=== PATIENT | female | born 1930 | race Caucasian/White ===

== ENCOUNTER → 2018-05-17 | Outpatient (CLI) | payer MEDICARE ==
[~2018-05-17] MED LIST: CALCIUM + VITA1 EACH; COSAMIN ASU CA1 EACH PO; ECOTRIN81 MG; FISH OIL500 MG; FUROSEMIDE40 MG PO; KLOR-CON 1010 MEQ PO; LUTEIN20 MG; NEXIUM20 MG PO; NORCO 10-325 T1 EACH; OSTEO BI-FLEX1 EACH; PRESERVISION T1 EACH; SIMVASTATIN10 MG; VITAMIN D-32000 UNIT
--- NOTE | 2018-05-17 13:28 | Diagnostic Imaging Report ---
Radiographs of the ribs - 4 views HISTORY: Left rib pain. COMPARISON: None available. FINDINGS: Bones: No acute displaced fracture. Osseous alignment is within normal limits. Joints: Scattered degenerative change. No osseous erosion. No rib abnormality is seen. Soft tissues: Chronic appearing changes in the lungs. IMPRESSION: Scattered degenerative change. No osseous erosion. No rib abnormality is seen. Signed by: Dr. Jonny Sheets M.D. on 05/17/2018 1:24 PM
== END ==
LOC: RAD 12:30
PROVIDERS: ATTEND Internal Medicine
DX: R07.81 Pleurodynia (principal); Z91.81 History of falling
CPT/HCPCS: 71101

== ENCOUNTER 2019-01-22 09:34 | Emergency (ER) | payer MEDICARE ==
[~2019-01-22] VITALS: Ht 154.9 cm; Wt 63.0 kg
--- OUTSIDE RECORDS SUMMARY | 2019-01-22 09:38 | XMS REPORT | Clinical Summary ---
Author Author [facility] Organization [facility] Address Unknown Phone Unavailable Care Team Providers Care Ichthyology Teacher Name Role Phone Aldo Gamboa MD PCP Allergies No Known Allergies Medications End Date Status Medication Sig Dispensed Refills Start Date Active OMEGA-3 FATTY ACIDS/FISH Take 1,200 mg 0 OIL (OMEGA 3 FISH OIL by mouth ORAL) daily. Active CRANBERRY FRUIT EXTRACT Take 2 0 (CRANBERRY ORAL) tablets by mouth 2 (two) times a day. Active cholecalciferol, vitamin Take 1 tablet 0 D3, (VITAMIN D3) 5,000 by mouth unit tablet daily. Active thiamine 100 MG tablet Take 100 mg 0 by mouth daily. Active folic Take 1 tablet 0 acid/multivit-min/lutein by mouth (CENTRUM SILVER ORAL) daily. Active rOPINIRole (REQUIP) 0.5 Take 0.5 mg 0 MG tablet by mouth nightly. Active vit A/vit C/vit Take 1 0 E/zinc/copper (ICAPS capsule by AREDS ORAL) mouth 2 (two) times a day. 07/05/2019 Active carbidopa-levodopa Take 1 tablet 90 tablet 3 (SINEMET CR) 50-200 mg by mouth 9 per CR tablet nightly. 07/05/2019 Active carbidopa-levodopa Take 2.5 675 tablet 3 (SINEMET) 25-100 mg per tablets by 9 tablet mouth 3 (three) times a day. AM, NOON, PM Active gabapentin (NEURONTIN) Take 1 0 100 mg capsule capsule by mouth in the morning and 4 capsules by mouth at bedtime 02/01/2019 Active amIODarone (PACERONE) 200 Take 1 tablet 60 tablet 0 01/02/201 MG tablet (200 mg 9 total) by mouth every 12 (twelve) hours for 30 days. 02/01/2019 Active apixaban (ELIQUIS) 2.5 mg Take 1 tablet 60 tablet 0 tablet (2.5 mg 9 total) by mouth 2 (two) times a day for 30 days. 02/01/2019 Active budesonide (PULMICORT) Take 2 mL 120 mL 0 0.5 mg/2 mL nebulizer (0.5 mg 9 solution total) by nebulization 2 (two) times a day for 30 days. 02/02/2019 Active metoprolol tartrate Take 0.5 15 tablet 0 (LOPRESSOR) 25 mg tablet tablets (12.5 9 mg total) by mouth daily for 30 days. Active acetaminophen/diphenhydra Take 1 tablet 0 mine (TYLENOL PM EXTRA by mouth STRENGTH ORAL) nightly. 01/10/2019 Discontinued (Therapy completed) aspirin (ECOTRIN) 81 MG Take 81 mg by 0 enteric coated tablet mouth daily. 03/27/2018 Discontinued (Med List Cleanup) carbidopa-levodopa Take 1 tablet 30 tablet 11 (SINEMET CR) 50-200 mg by mouth 7 per CR tablet nightly. 03/27/2018 Discontinued (Med List Cleanup) carbidopa-levodopa TAKE TWO (2) 225 tablet 11 (SINEMET) 25-100 mg per & 1/2 TABLETS 8 tablet BY MOUTH THREE TIMES A DAY. 03/27/2018 Discontinued (Med List Cleanup) vitamin A-vit C-vit Take 1 tablet 0 E-zinc-Cu tablet by mouth 2 (two) times a day. 03/27/2018 Discontinued (Med List Cleanup) diphenhydramine-acetamino Take 1 tablet 0 phen 12.5-500 mg tablet by mouth as needed (for mild pain). 03/27/2018 Discontinued (Med List Cleanup) DULoxetine (CYMBALTA) 30 Take 1 30 capsule 11 MG capsule capsule (30 8 mg total) by mouth nightly. 03/27/2018 Discontinued (Med List Cleanup) gabapentin (NEURONTIN) Take 5 150 capsule 6 100 mg capsule capsules (500 8 mg total) by mouth daily. 07/05/2018 Discontinued (Reorder) carbidopa-levodopa Take 1 tablet 0 (SINEMET CR) 50-200 mg by mouth per CR tablet nightly. 07/05/2018 Discontinued (Reorder) carbidopa-levodopa Take 2.5 0 (SINEMET) 25-100 mg per tablets by tablet mouth 3 (three) times a day. AM, NOON, PM 07/18/2018 Discontinued (Stop Taking at Discharge) diphenhydramine-acetamino Take 1 tablet 0 phen 12.5-500 mg tablet by mouth nightly as needed. 07/05/2018 Discontinued (Reorder) gabapentin (NEURONTIN) Take 100 mg 0 100 mg capsule by mouth every morning. 07/16/2018 Discontinued gabapentin (NEURONTIN) Take 400 mg 0 100 mg capsule by mouth daily with dinner. 11/19/2018 Discontinued (Patient Reported) potassium chloride Take 20 mEq 0 (K-DUR) 20 MEQ CR tablet by mouth every morning. 11/19/2018 Discontinued (Patient Reported) furosemide (LASIX) 20 mg Take 20 mg by 0 tablet mouth daily. 04/27/2018 acetaminophen (TYLENOL) Take 2 0 325 MG tablet tablets (650 8 mg total) by mouth every 6 (six) hours as needed for mild pain, moderate pain or headaches for up to 30 days. 04/07/2018 acetaminophen-codeine Take 1 tablet 10 tablet 0 (TYLENOL WITH CODEINE #3) by mouth 8 300-30 mg per tablet every 6 (six) hours as needed for moderate pain for up to 10 days. 11/19/2018 Discontinued (Error) gabapentin (NEURONTIN) 1 pill in AM 450 capsule 3 100 mg capsule and 4 pills 9 HS 07/25/2018 levoFLOXacin (LEVAQUIN) Take 1 tablet 7 tablet 0 500 MG tablet (500 mg 9 total) by mouth daily for 7 days. 12/19/2018 albuterol (ACCUNEB) 0.63 Take 3 mL 75 mL 12 mg/3 mL nebulizer (0.63 mg 9 solution total) by nebulization every 6 (six) hours as needed for shortness of breath for up to 30 days. Active Problems Problem Noted Date Respiratory distress 12/27/2018 Atrial fibrillation with RVR 12/27/2018 Chronic diastolic congestive heart failure 12/27/2018 Urinary tract infection without hematuria 12/24/2018 Shortness of breath 11/19/2018 Chest pain at rest 11/18/2018 Acute cystitis without hematuria 07/16/2018 T12 burst fracture 03/27/2018 General weakness 10/19/2017 Altered mental status 08/14/2017 Parkinsonism 10/26/2016 NPH (normal pressure hydrocephalus) 10/26/2016 Weakness 06/09/2016 Macular degeneration syndrome 02/13/2016 Humerus fracture 02/13/2016 Subarachnoid hemorrhage 02/12/2016 OA (osteoarthritis) Mesenteric lymphadenopathy Overview: no accessible by IR directed biopsy Kidney calculus Overview: history of Cardiac disease Chronic a-fib Chronic renal impairment Hyperlipidemia Encounters Care Team Description Date Type Specialty Vesna Vences MD Parkinson's disease (HCC) (Primary Dx); Vitamin B deficiency; Dementia without behavioral disturbance, unspecified dementia type; Sensory polyneuropathy; Abnormal gait 01/10/2019 Office Visit Neurology Bob Bernardo DO Joglekar, Swati, MD Patel, Amitkumar Natvarlal, MD Arif, Sahar, MD Urinary tract infection without hematuria, site unspecified (Primary Dx); Weakness; Chronic a-fib (HCC); Chronic diastolic congestive heart failure (HCC) 12/24/2018 [facility] General Internal Medicine - Encounter 01/02/2019 12/24/2018 Travel Hilary Grande MD Ogbonna, Martina C., MD Chest pain at rest (Primary Dx); Parkinsonism, unspecified Parkinsonism type (HCC); Chronic lung disease; Shortness of breath 11/18/2018 Emergency General Internal Medicine - 11/19/2018 Vesna Vences MD Aphasia; Parkinson's disease (HCC); Dementia without behavioral disturbance, unspecified dementia type 10/23/2018 Hospital Radiology Encounter Vesna Vences MD 10/08/2018 Telephone Neurology Vesna Vences MD Aphasia (Primary Dx); Parkinson's disease (HCC); Primary freezing of gait; Vitamin B deficiency; Dementia without behavioral disturbance, unspecified dementia type; Sensory polyneuropathy; Abnormal gait; Pain in both lower legs; Dementia associated with other underlying disease without behavioral disturbance 10/04/2018 Office Visit Neurology Mike Lu MD Cherian, Cecil, MD Joglekar, Swati, MD McCartan, James Arthur, DO Weakness (Primary Dx) 07/14/2018 Hospital General Internal Medicine - Encounter 07/18/2018 Vesna Vences MD Parkinson's disease (HCC) (Primary Dx); Primary freezing of gait; Sensory polyneuropathy; Vitamin B deficiency; Abnormal gait; Mild cognitive impairment 07/05/2018 Office Visit Neurology Mariano Henry MD Closed compression fracture of thoracic vertebra with routine healing, subsequent encounter (Primary Dx) 06/18/2018 Office Visit Neurosurgery Mariano Henry MD Stress fracture of thoracic vertebra with routine healing 06/18/2018 Hospital Radiology Encounter Vesna Vences MD 06/13/2018 Refill Neurology Vesna Vences MD 05/23/2018 Refill Neurology Vesna Vences MD 05/08/2018 Refill Neurology Mariano Henry MD Closed compression fracture of thoracic vertebra with routine healing, subsequent encounter (Primary Dx) 04/16/2018 Office Visit Neurosurgery Mariano Henry MD Stress fracture of thoracic vertebra with routine healing, subsequent encounter 04/16/2018 Hospital Radiology Encounter Lisa Hills RN Stress fracture of thoracic vertebra with routine healing (Primary Dx) 04/16/2018 Transcribe Neurosurgery Orders Mariano Henry MD Stress fracture of thoracic vertebra with routine healing, subsequent encounter (Primary Dx) 03/29/2018 Transcribe Neurosurgery Orders Dav Cohen MD Gadiraju, Sahitya, T12 burst fracture (HCC) (Primary Dx) 03/27/2018 Emergency General Internal Medicine - 03/28/2018 Vesna Vences MD Parkinson's disease (HCC) (Primary Dx); Primary freezing of gait; Sensory polyneuropathy; Vitamin B deficiency; Abnormal gait; Pain in both lower legs 03/07/2018 Office Visit Neurology after 01/21/2018 Family History Medical History Relation Name Comments Colon cancer Daughter Thyroid cancer Daughter No Known Problems Mother Relation Name Status Comments Daughter Mother Social History Date Tobacco Use Types Packs/Day Years Used Never Smoker Smokeless Tobacco: Never Used Drinks/Week oz/Week Comments Alcohol Use No Sex Assigned at Date Recorded Not on file Industry Job Start Date Occupation Not on file Not on file Not on file Travel End Travel History Travel Start No recent travel history available. Last Filed Vital Signs Reading Time Taken Comments Vital Sign 127/58 01/10/2019 2:05 PM CDT Blood Pressure 62 01/10/2019 2:05 PM CDT Pulse 36.1 C (96.9 F) 01/02/2019 7:24 AM CDT Temperature 13 01/02/2019 3:54 PM CDT Respiratory Rate 97% 01/02/2019 3:51 PM CDT Oxygen Saturation - - Inhaled Oxygen Concentration 51.7 kg (114 lb) 01/10/2019 2:05 PM CDT Weight 154.9 cm (5' 1") 12/24/2018 1:06 AM CDT Height 21.54 12/24/2018 1:06 AM CDT Body Mass Index Plan of Treatment Care Team Description Date Type Specialty Vesna Vences MD [address] [facility] [address] [place], [place] [id number] 04/18/2019 Office Visit Neurology Health Maintenance Due Date Last Done Comments SHINGLES VACCINES (#1) 1982 65+ PNEUMOCOCCAL VACCINE 1997 (1 of 2 - PCV13) INFLUENZA VACCINE 11/29/2018 Procedures Comments Procedure Name Priority Date/Time Associated Diagnosis POC GLUCOSE Routine 01/02/2019 1:14 PM CDT POC GLUCOSE Routine 01/02/2019 8:23 AM CDT POC GLUCOSE Routine 01/01/2019 9:35 PM CDT POC GLUCOSE Routine 01/01/2019 6:05 PM CDT POC GLUCOSE Routine 01/01/2019 12:28 PM CDT POC GLUCOSE Routine 01/01/2019 7:53 AM CDT ECHOCARDIOGRAM 2D STAT 01/01/2019 COMPLETE W MMODE SPECTRAL 5:17 AM CDT COLOR DOPPLER (92481) POC GLUCOSE Routine 12/31/2018 9:13 PM CDT POC GLUCOSE Routine 12/31/2018 5:53 PM CDT POC GLUCOSE Routine 12/31/2018 11:54 AM CDT POC GLUCOSE Routine 12/31/2018 8:16 AM CDT MANUAL DIFFERENTIAL Routine 12/31/2018 5:45 AM CDT B NATRIURETIC PEPTIDE Routine 12/31/2018 5:45 AM CDT CBC WITH PLATELET AND Routine 12/31/2018 DIFFERENTIAL 5:45 AM CDT ESTIMATED GFR Routine 12/31/2018 4:00 AM CDT PHOSPHORUS LEVEL Routine 12/31/2018 4:00 AM CDT MAGNESIUM LEVEL Routine 12/31/2018 4:00 AM CDT BASIC METABOLIC PANEL Routine 12/31/2018 4:00 AM CDT POC GLUCOSE Routine 12/30/2018 8:[address] HEAD WO CONTRAST STAT 12/30/2018 4:31 PM CDT POC GLUCOSE Routine 12/30/2018 3:58 PM CDT IONIZED CALCIUM Timed 12/30/2018 1:00 PM CDT POTASSIUM LEVEL Timed 12/30/2018 1:00 PM CDT POC GLUCOSE Routine 12/30/2018 11:22 AM CDT POC GLUCOSE Routine 12/30/2018 7:14 AM CDT XR CHEST 1 VW PORTABLE Routine 12/30/2018 6:47 AM CDT MANUAL DIFFERENTIAL Routine 12/30/2018 3:05 AM CDT IONIZED CALCIUM Routine 12/30/2018 3:05 AM CDT ESTIMATED GFR Routine 12/30/2018 3:05 AM CDT PHOSPHORUS LEVEL Routine 12/30/2018 3:05 AM CDT MAGNESIUM LEVEL Routine 12/30/2018 3:05 AM CDT CBC WITH PLATELET AND Routine 12/30/2018 DIFFERENTIAL 3:05 AM CDT BASIC METABOLIC PANEL Routine 12/30/2018 3:05 AM CDT POC GLUCOSE Routine 12/30/2018 12:50 AM CDT POC GLUCOSE Routine 12/29/2018 8:31 PM CDT ESTIMATED GFR Routine 12/29/2018 7:48 PM CDT BASIC METABOLIC PANEL Routine 12/29/2018 7:48 PM CDT POC GLUCOSE Routine 12/29/2018 4:53 PM CDT PARTIAL THROMBOPLASTIN Routine 12/29/2018 TIME (PTT) 1:40 PM CDT POC GLUCOSE Routine 12/29/2018 11:10 AM CDT POC GLUCOSE Routine 12/29/2018 7:34 AM CDT MANUAL DIFFERENTIAL Routine 12/29/2018 4:53 AM CDT ESTIMATED GFR Routine 12/29/2018 4:53 AM CDT PARTIAL THROMBOPLASTIN Routine 12/29/2018 TIME (PTT) 4:53 AM CDT PHOSPHORUS LEVEL Routine 12/29/2018 4:53 AM CDT MAGNESIUM LEVEL Routine 12/29/2018 4:53 AM CDT CBC WITH PLATELET AND Routine 12/29/2018 DIFFERENTIAL 4:53 AM CDT BASIC METABOLIC PANEL Routine 12/29/2018 4:53 AM CDT POC GLUCOSE Routine 12/29/2018 4:31 AM CDT POC GLUCOSE Routine 12/29/2018 12:53 AM CDT ANTI XA, UNFRACTIONATED STAT 12/28/2018 10:18 PM CDT PARTIAL THROMBOPLASTIN STAT 12/28/2018 TIME (PTT) 10:18 PM CDT POC GLUCOSE Routine 12/28/2018 9:12 PM CDT XR CHEST 1 VW PORTABLE STAT 12/28/2018 7:36 PM CDT ECG 12-LEAD STAT 12/28/2018 6:55 PM CDT TROPONIN Routine 12/28/2018 6:42 PM CDT POC GLUCOSE Routine 12/28/2018 4:38 PM CDT ESTIMATED GFR Routine 12/28/2018 1:20 PM CDT BETA HYDROXYBUTYRATE Routine 12/28/2018 1:20 PM CDT BASIC METABOLIC PANEL Routine 12/28/2018 1:20 PM CDT LACTIC ACID LEVEL Routine 12/28/2018 1:20 PM CDT POTASSIUM LEVEL Routine 12/28/2018 1:20 PM CDT POC GLUCOSE Routine 12/28/2018 10:46 AM CDT POC GLUCOSE Routine 12/28/2018 8:17 AM CDT POC GLUCOSE Routine 12/28/2018 5:07 AM CDT ESTIMATED GFR Routine 12/28/2018 2:50 AM CDT B NATRIURETIC PEPTIDE Routine 12/28/2018 2:50 AM CDT VENOUS BLOOD GAS Routine 12/28/2018 2:50 AM CDT PHOSPHORUS LEVEL Routine 12/28/2018 2:50 AM CDT MAGNESIUM LEVEL Routine 12/28/2018 2:50 AM CDT BASIC METABOLIC PANEL Routine 12/28/2018 2:50 AM CDT HC COMPLETE BLD COUNT Routine 12/28/2018 W/AUTO DIFF 2:50 AM CDT VITAMIN B12 LEVEL Routine 12/28/2018 2:50 AM CDT TOTAL IRON BINDING Routine 12/28/2018 CAPACITY 2:50 AM CDT FOLATE RBC (GROUP TEST) Routine 12/28/2018 2:50 AM CDT FOLATE LEVEL Routine 12/28/2018 2:50 AM CDT POC GLUCOSE Routine 12/28/2018 12:44 AM CDT POC GLUCOSE Routine 12/27/2018 8:42 PM CDT POC GLUCOSE Routine 12/27/2018 6:[address] MAXILLOFACIAL W Routine 12/27/2018 CONTRAST 5:[address] SOFT TISSUE NECK W Routine 12/27/2018 CONTRAST 5:55 PM CDT POC GLUCOSE Routine 12/27/2018 4:19 PM CDT RESPIRATORY PATHOGEN Routine 12/27/2018 PANEL 12:31 PM CDT POC GLUCOSE Routine 12/27/2018 12:27 PM CDT ECG 12-LEAD STAT 12/27/2018 10:07 AM CDT VENOUS BLOOD GAS Routine 12/27/2018 10:00 AM CDT ESTIMATED GFR Routine 12/27/2018 9:40 AM CDT LACTIC ACID LEVEL Routine 12/27/2018 9:40 AM CDT B NATRIURETIC PEPTIDE Routine 12/27/2018 9:40 AM CDT TROPONIN STAT 12/27/2018 9:40 AM CDT COMPREHENSIVE METABOLIC Routine 12/27/2018 PANEL 9:40 AM CDT PHOSPHORUS LEVEL Routine 12/27/2018 9:40 AM CDT MAGNESIUM LEVEL Routine 12/27/2018 9:40 AM CDT PROTHROMBIN TIME WITH INR Routine 12/27/2018 9:40 AM CDT HC COMPLETE BLD COUNT Routine 12/27/2018 W/AUTO DIFF 9:40 AM CDT POC GLUCOSE Routine 12/27/2018 9:07 AM CDT GRAM STAIN STAT 12/27/2018 9:02 AM CDT URINE CULTURE STAT 12/27/2018 9:02 AM CDT BLOOD CULTURE, AEROBIC & Routine 12/27/2018 ANAEROBIC 7:45 AM CDT BLOOD CULTURE, AEROBIC & Routine 12/27/2018 ANAEROBIC 7:45 AM CDT URINALYSIS SCREEN AND STAT 12/27/2018 MICROSCOPY, WITH REFLEX 7:35 AM CDT TO CULTURE XR CHEST 1 VW PORTABLE STAT 12/27/2018 7:02 AM CDT POC GLUCOSE Routine 12/27/2018 6:52 AM CDT LACTIC ACID LEVEL, SEPSIS Timed 12/27/2018 - NOW AND REPEAT 2X EVERY 6:30 AM CDT 3 HOURS THYROID STIMULATING Routine 12/27/2018 HORMONE 6:30 AM CDT HEPATIC FUNCTION PANEL Routine 12/27/2018 6:30 AM CDT PHOSPHORUS LEVEL Routine 12/27/2018 6:30 AM CDT MAGNESIUM LEVEL Routine 12/27/2018 6:30 AM CDT ARTERIAL BLOOD GAS STAT 12/27/2018 6:14 AM CDT ECG 12-LEAD STAT 12/27/2018 6:13 AM CDT B NATRIURETIC PEPTIDE Routine 12/27/2018 4:00 AM CDT THYROID STIMULATING Routine 12/27/2018 HORMONE 3:40 AM CDT HEPATIC FUNCTION PANEL Routine 12/27/2018 3:40 AM CDT PHOSPHORUS LEVEL Routine 12/27/2018 3:40 AM CDT MAGNESIUM LEVEL Routine 12/27/2018 3:40 AM CDT ESTIMATED GFR Routine 12/27/2018 3:40 AM CDT BASIC METABOLIC PANEL Routine 12/27/2018 3:40 AM CDT HC COMPLETE BLD COUNT Routine 12/27/2018 W/AUTO DIFF 3:40 AM CDT ECG 12-LEAD STAT 12/26/2018 9:54 AM CDT XR CHEST 1 VW PORTABLE STAT 12/26/2018 4:19 AM CDT PHOSPHORUS LEVEL Routine 12/26/2018 3:57 AM CDT TROPONIN Routine 12/26/2018 3:57 AM CDT ESTIMATED GFR Routine 12/26/2018 3:57 AM CDT MAGNESIUM LEVEL Routine 12/26/2018 3:57 AM CDT BASIC METABOLIC PANEL Routine 12/26/2018 3:57 AM CDT HC COMPLETE BLD COUNT Routine 12/26/2018 W/AUTO DIFF 3:30 AM CDT ESTIMATED GFR Routine 12/25/2018 4:51 AM CDT TROPONIN Routine 12/25/2018 4:51 AM CDT MAGNESIUM LEVEL Routine 12/25/2018 4:51 AM CDT COMPREHENSIVE METABOLIC Routine 12/25/2018 PANEL 4:51 AM CDT CBC WITH PLATELET AND Routine 12/25/2018 DIFFERENTIAL 4:51 AM CDT ECHOCARDIOGRAM 2D Routine 12/24/2018 COMPLETE W MMODE SPECTRAL 11:25 AM CDT COLOR DOPPLER (72456) TROPONIN Timed 12/24/2018 9:00 AM CDT POTASSIUM LEVEL STAT 12/24/2018 6:00 AM CDT TROPONIN Timed 12/24/2018 3:02 AM CDT GRAM STAIN STAT 12/24/2018 2:44 AM CDT URINE CULTURE STAT 12/24/2018 2:44 AM CDT URINALYSIS SCREEN AND STAT 12/24/2018 MICROSCOPY, WITH REFLEX 2:32 AM CDT TO CULTURE VENOUS BLOOD GAS STAT 12/24/2018 1:38 AM CDT AST (SGOT) STAT 12/24/2018 1:32 AM CDT POTASSIUM LEVEL STAT 12/24/2018 1:32 AM CDT ECG ED PRELIMINARY Routine 12/24/2018 INTERPRETATION 12:56 AM CDT XR CHEST 1 VW PORTABLE STAT 12/24/2018 12:51 AM CDT ESTIMATED GFR STAT 12/24/2018 12:30 AM CDT B NATRIURETIC PEPTIDE STAT 12/24/2018 12:30 AM CDT TROPONIN Routine 12/24/2018 12:30 AM CDT LACTIC ACID LEVEL STAT 12/24/2018 12:30 AM CDT COMPREHENSIVE METABOLIC STAT 12/24/2018 PANEL 12:30 AM CDT HC COMPLETE BLD COUNT STAT 12/24/2018 W/AUTO DIFF 12:30 AM CDT BLOOD CULTURE, AEROBIC & Routine 12/24/2018 ANAEROBIC 12:30 AM CDT ECG 12-LEAD STAT 12/24/2018 12:24 AM CDT BLOOD CULTURE, AEROBIC & Routine 12/24/2018 ANAEROBIC 12:15 AM CDT XR FOREARM 2 VW RIGHT Routine 11/19/2018 6:02 PM CDT ECG 12-LEAD STAT 11/19/2018 9:31 AM CDT TROPONIN STAT 11/19/2018 3:00 AM CDT LACTIC ACID LEVEL STAT 11/19/2018 3:00 AM CDT ESTIMATED GFR STAT 11/19/2018 3:00 AM CDT HC COMPLETE BLD COUNT STAT 11/19/2018 W/AUTO DIFF 3:00 AM CDT COMPREHENSIVE METABOLIC STAT 11/19/2018 PANEL 3:00 AM CDT MAGNESIUM LEVEL STAT 11/19/2018 3:00 AM CDT PHOSPHORUS LEVEL STAT 11/19/2018 3:00 AM CDT B NATRIURETIC PEPTIDE STAT 11/19/2018 3:00 AM CDT RESPIRATORY PATHOGEN Routine 11/19/2018 PANEL 3:00 AM CDT ESTIMATED GFR STAT 11/18/2018 8:04 PM CDT B NATRIURETIC PEPTIDE STAT 11/18/2018 8:04 PM CDT TROPONIN STAT 11/18/2018 8:04 PM CDT CREATINE KINASE, TOTAL STAT 11/18/2018 (CPK) 8:04 PM CDT COMPREHENSIVE METABOLIC STAT 11/18/2018 PANEL 8:04 PM CDT PARTIAL THROMBOPLASTIN STAT 11/18/2018 TIME (PTT) 8:04 PM CDT PROTHROMBIN TIME WITH INR STAT 11/18/2018 8:04 PM CDT HC COMPLETE BLD COUNT STAT 11/18/2018 W/AUTO DIFF 8:04 PM CDT XR CHEST 1 VW PORTABLE STAT 11/18/2018 7:58 PM CDT MRI BRAIN WO CONTRAST Routine 10/23/2018 Aphasia 1:15 PM CDT Parkinson's disease (HCC) Dementia without behavioral disturbance, unspecified dementia type ESTIMATED GFR Routine 07/17/2018 4:00 AM CDT HC COMPLETE BLD COUNT Routine 07/17/2018 W/AUTO DIFF 4:00 AM CDT BASIC METABOLIC PANEL Routine 07/17/2018 4:00 AM CDT HC COMPLETE BLD COUNT Routine 07/16/2018 W/AUTO DIFF 4:45 AM CDT ESTIMATED GFR Routine 07/16/2018 4:00 AM CDT PHOSPHORUS LEVEL Routine 07/16/2018 4:00 AM CDT MAGNESIUM LEVEL Routine 07/16/2018 4:00 AM CDT BASIC METABOLIC PANEL Routine 07/16/2018 4:[address] HEAD WO CONTRAST STAT 07/15/2018 12:18 AM CDT GRAM STAIN STAT 07/14/2018 10:04 PM CDT URINE CULTURE STAT 07/14/2018 10:04 PM CDT URINALYSIS SCREEN AND STAT 07/14/2018 MICROSCOPY, WITH REFLEX 8:19 PM CDT TO CULTURE BLOOD CULTURE, AEROBIC & Routine 07/14/2018 ANAEROBIC 8:11 PM CDT ESTIMATED GFR STAT 07/14/2018 8:08 PM CDT TROPONIN STAT 07/14/2018 8:08 PM CDT COMPREHENSIVE METABOLIC STAT 07/14/2018 PANEL 8:08 PM CDT HC COMPLETE BLD COUNT STAT 07/14/2018 W/AUTO DIFF 8:08 PM CDT BLOOD CULTURE, AEROBIC & Routine 07/14/2018 ANAEROBIC 8:08 PM CDT ECG 12-LEAD Routine 07/14/2018 5:15 PM CDT XR THORACIC SPINE 3 VW Routine 06/18/2018 Stress fracture of 12:14 PM INSPECTOR FINISHING thoracic vertebra with routine healing XR THORACIC SPINE 3 VW Routine 04/16/2018 Stress fracture of 12:45 PM INSPECTOR FINISHING thoracic vertebra with routine healing, subsequent encounter MRI LUMBAR SPINE WO STAT 03/27/2018 CONTRAST 10:18 AM INSPECTOR FINISHING ESTIMATED GFR STAT 03/27/2018 9:25 AM INSPECTOR FINISHING COMPREHENSIVE METABOLIC STAT 03/27/2018 PANEL 9:25 AM INSPECTOR FINISHING HC COMPLETE BLD COUNT STAT 03/27/2018 W/AUTO DIFF 9:[address] PELVIS WO CONTRAST STAT 03/27/2018 2:[address] LUMBAR SPINE WO STAT 03/27/2018 CONTRAST 2:58 AM INSPECTOR FINISHING after 01/21/2018 Results * POC glucose (01/02/2019 1:14 PM CDT) Only the most recent of 33 results within the time period is included. POC glucose 134 (H) 65 - 99 mg/dL [place] Comment: [facility] Notified RN HOSPITAL Meter ID: [id number] Client Director: Fransisco Galeas Specimen Performing Organization Address City/State/Zipcode Phone Number [facility] DEPARTMENT OF [address] [phone] PATHOLOGY AND GENOMIC MEDICINE [place] [facility] [address] [place] [address] * Echocardiogram complete w contrast and 3D if needed (01/01/2019 5:17 AM CDT) Specimen Narrative Performed At [facility] Echocardiography Report [id number] [facility], [facility] 9, [address]Name:BRIDGET ISAAC.ID:[id number] .Date: 12/27/2018 Refer.MD:CRISTIANE CARROLL MD Exam Time: 9:45:00 AMStudy Type:Routine Echo Height:61.02in Weight:113.74lb BSA: 1.49 m2 DOBAge:1930,88Y Sex: FEMALEBP:121/56 HR:80 bpmSonogrphr: GALEN Reilly Pat. Stat.:Inpatient Room:[facility] [place] Study Status:Final Echo Event ID:[id number] Order ID:[id number] Reason for Study:Atrial fibrillation History / Clinical:Atrial Fibrillation, Hyperlipidemia Procedures:Portable, Stat, 2D Echo Limited Race:C SUMMARY: LV EF is mild to moderately depressed. RV systolic function is mildly depressed. FINDINGS: LV: LV size is mildly enlarged. There is severe eccentric LV hypertrophy.LV EF is mild to moderately depressed. Overall wallmotion is mildly hypokinetic. Estimated EF is 40-44%. RV: RV size is normal. RV systolic function is mildly depressed. LA: LA size is normal. RA: RA size is normal. AO: Aortic root diameter is normal. BANDAR: No pericardial effusion. AV: No structural AV abnormalities noted. MV: No structural MV abnormalities noted. PV: No structural PV abnormalities noted. TV: No structural TV abnormalities noted. MEASUREMENTS: 2D Parasternal [place] LVOT 1.8 cmLA Ds4.4 cm LVIDd5 cmIndex3.3 cm/m Ao Rtd 3.1 cm Index2.1 cm/m LVIDs3.8 cmLV Osma228.3 g(87-129) LV%fs 23.4 % LVM Cfwuq426.5 g/m2 IVSd 1.3 cmRWT0.4 LVPWd1 cm LA Sng Plane LA Area 17.6 cm2(8.8-23.4) LA Vol46.4 ml Index31.1 ml/m LA LngAx 5.5 cm RA Sng Plane RA Area 18.7 cm2(8.3-19.5) RA Vol48.6 ml Index32.6 ml/m RA LngAx 6 cm Signed 12/27/2018 12:11 PM Krystina Ellis M.D. Procedure Note Interface, Radiology Results In - 12/27/2018 12:11 PM CDT Echocardiography Report [id number] [place] [address] Pat.Name: BRIDGET ISAAC Pat.ID: [id number] .Date: 12/27/2018 Refer.MD: CRISTIANE CARROLL MD Exam Time: 9:45:00 AM Study Type:Routine Echo Height: 61.02in Weight: 113.74lb BSA: 1.49 m2 Age: 6 1930,88Y Sex: FEMALE BP: 121/56 HR: 80 bpm Sonogrphr: GALEN Reilly Pat. Stat.:Inpatient Room: [facility] [place] Study Status:Final Echo Event ID:[id number] Order ID: [id number] Reason for Study:Atrial fibrillation History / Clinical:Atrial Fibrillation, Hyperlipidemia Procedures:Portable, Stat, 2D Echo Limited Race: C SUMMARY: LV EF is mild to moderately depressed. RV systolic function is mildly depressed. FINDINGS: LV: LV size is mildly enlarged. There is severe eccentric LV hypertrophy. LV EF is mild to moderately depressed. Overall wall motion is mildly hypokinetic. Estimated EF is 40-44%. RV: RV size is normal. RV systolic function is mildly depressed. LA: LA size is normal. RA: RA size is normal. AO: Aortic root diameter is normal. BADNAR: No pericardial effusion. AV: No structural AV abnormalities noted. MV: No structural MV abnormalities noted. PV: No structural PV abnormalities noted. TV: No structural TV abnormalities noted. MEASUREMENTS: 2D Parasternal [place] LVOT 1.8 cm LA Ds 4.4 cm LVIDd 5 cm Index 3.3 cm/m Ao Rtd 3.1 cm Index 2.1 cm/m LVIDs 3.8 cm LV Mass 224.3 g (87-129) LV%fs 23.4 % LVM Index 150.5 g/m2 IVSd 1.3 cm RWT 0.4 LVPWd 1 cm LA Sng Plane LA Area 17.6 cm2 (8.8-23.4) LA Vol 46.4 ml Index 31.1 ml/m LA LngAx 5.5 cm RA Sng Plane RA Area 18.7 cm2 (8.3-19.5) RA Vol 48.6 ml Index 32.6 ml/m RA LngAx 6 cm Signed 12/27/2018 12:11 PM Krystina Ellis M.D. Performing Organization Address City/State/Zipcode Phone Number [facility] [address] [place] [address] * Manual differential (12/31/2018 5:45 AM CDT) Only the most recent of 3 results within the time period is included. Manual PERFORMED [place] differential [facility] Neutrophils 81.0 (H) 39.0 - 69.0 % [facility] Lymphocytes 10.0 (L) 25.0 - 45.0 % [facility] Monocytes 7.0 0.0 - 10.0 % [facility] Eosinophils 2.0 0.0 - 5.0 % [facility] Basophils 0.0 0.0 - 1.0 % [facility] Metamyelocytes 0 % [facility] Promyelocytes 0 % [facility] Platelet slide Jax adequate [place] review [facility] Enlarged Moderate (A) [facility] Specimen Performing Organization Address [facility] Phone Number [facility] DEPARTMENT OF [address] [place] [address] PATHOLOGY AND GENOMIC MEDICINE [address] * CBC with platelet and differential (12/31/2018 5:45 AM CDT) Only the most recent of 15 results within the time period is included. WBC 7.39 4.50 - 11.00 k/uL [facility] RBC 2.95 (L) 4.20 - 5.50 m/uL [facility] HGB 8.9 (L) 12.0 - 16.0 g/dL [facility] HCT 28.8 (L) 37.0 - 47.0 % [facility] MCV 97.6 82.0 - 100.0 fL [facility] MCH 30.2 27.0 - 34.0 pg [facility] MCHC 30.9 (L) 31.0 - 37.0 g/dL [facility] RDW - SD 48.5 37.0 - 55.0 fL [facility] MPV 11.0 8.8 - 13.2 fL [facility] Platelet count 377 150 - 400 k/uL [facility] Nucleated RBC 0.00 /100 WBC [facility] Neutrophils 81.0 (H) 39.0 - 69.0 % [facility] Lymphocytes 10.0 (L) 25.0 - 45.0 % [facility] Monocytes 7.0 0.0 - 10.0 % [facility] Eosinophils 2.0 0.0 - 5.0 % [facility] Basophils 0.0 0.0 - 1.0 % [facility] Specimen Blood Performing Organization Address City/State/Zipcode Phone Number [facility] [place] [address] PATHOLOGY AND [facility] [address] * B natriuretic peptide (12/31/2018 5:45 AM CDT) Only the most recent of 7 results within the time period is included. BNP 248 (H) 0 - 100 pg/mL [facility] Specimen Blood Performing Organization Address City/[facility] Phone Number [facility] [place] [address] PATHOLOGY AND [facility] [address] * Estimated GFR (12/31/2018 4:00 AM CDT) Only the most recent of 17 results within the time period is included. Estimated GFR 48 (A) mL/min/1.73 m2 [place] Comment: [facility] rpretation G1 >=90 Normal or high G2 60-89Mildly decreased [id number] Mildly to moderately decreased [id number] Moderately to severely decreased G4 15-29Severely decreased G5 <15Kidney failure The eGFR was calculated using the Chronic Kidney Disease Epidemiology Collaboration (CKD-EPI) equation. Interpretation is based on recommendations of the National Kidney Foundation-Kidney Disease Outcomes Quality Initiative (NKF-KDOQI) published in 2014. Specimen Plasma specimen Performing Organization Address City/[facility] Phone Number [facility] [place] [address] PATHOLOGY AND [facility] [address] * Phosphorus level (12/31/2018 4:00 AM CDT) Only the most recent of 10 results within the time period is included. Phosphorus 3.8 2.4 - 4.5 mg/dL [facility] Specimen Plasma specimen Performing Organization Address City/[facility]/Zipcode Phone Number [facility] DEPARTMENT OF [address] [place] [address] PATHOLOGY AND [facility] [address] * Magnesium level (12/31/2018 4:00 AM CDT) Only the most recent of 11 results within the time period is included. Magnesium 2.4 1.6 - 2.4 mg/dL [facility] Specimen Plasma specimen Performing Organization Address City/[facility] Phone Number [facility] [place] [address] PATHOLOGY AND [facility] [address] * Basic metabolic panel (12/31/2018 4:00 AM CDT) Only the most recent of 10 results within the time period is included. Sodium 140 135 - 148 mEq/L [facility] Potassium 3.5 3.5 - 5.0 mEq/L [facility] Chloride 104 98 - 112 mEq/L [facility] CO2 25 24 - 31 mEq/L [facility] Anion gap 11@ANIO 7 - 15 mEq/L [facility] BUN 24 (H) 8 - 23 mg/dL [facility] Creatinine 1.04 (H) 0.50 - 0.90 mg/dL [facility] Glucose 86 65 - 99 mg/dL [facility] Calcium 8.2 (L) 8.8 - 10.2 mg/dL [facility] Specimen Plasma specimen Performing Organization Address [facility] Phone Number [facility] [place] [address] PATHOLOGY AND [facility] [address] * CT Head Wo Contrast (12/30/2018 4:31 PM CDT) Only the most recent of 2 results within the time period is included. Specimen Narrative Performed At EXAMINATION: CT HEAD WO CONTRAST [facility] CLINICAL HISTORY: evaluate for stroke COMPARISON:CT brain dated 07/15/2018. MRI brain dated 10/23/2018. TECHNIQUE: Noncontrast CT of the brain was performed from the skull base to the vertex. Both soft tissue and bone reconstruction algorithms are interpreted. CT imaging was performed with iterative reconstruction techniques and/or automated exposure control to reduce radiation dose. FINDINGS: No intracranial hemorrhage, extra-axial collection, or mass-effect is seen.No acute cortical infarct is identified. No hyperdense vessel is seen. Moderate chronic small vessel ischemic changes are noted in the cerebral white matter. Involutional changes of brain are again seen. No air-fluid level is seen in the visualized portions of the paranasal sinuses. There is mild partial opacification of the mastoid air cells. IMPRESSION: No acute intracranial abnormality identified. [facility]-[id number] Procedure Note Hm Interface, Radiology Results Incoming - 12/30/2018 4:37 PM CDT EXAMINATION: CT HEAD WO CONTRAST CLINICAL HISTORY: evaluate for stroke COMPARISON: CT brain dated 07/15/2018. MRI brain dated 10/23/2018. TECHNIQUE: Noncontrast CT of the brain was performed from the skull base to the vertex. Both soft tissue and bone reconstruction algorithms are interpreted. CT imaging was performed with iterative reconstruction techniques and/or automated exposure control to reduce radiation dose. FINDINGS: No intracranial hemorrhage, extra-axial collection, or mass-effect is seen. No acute cortical infarct is identified. No hyperdense vessel is seen. Moderate chronic small vessel ischemic changes are noted in the cerebral white matter. Involutional changes of brain are again seen. No air-fluid level is seen in the visualized portions of the paranasal sinuses. There is mild partial opacification of the mastoid air cells. IMPRESSION: No acute intracranial abnormality identified. [facility]-[id number] Performing Organization Address City/[facility]/[place] [address] * Potassium level (12/30/2018 1:00 PM CDT) Only the most recent of 4 results within the time period is included. Potassium 3.6 3.5 - 5.0 mEq/L [facility] Specimen Plasma specimen Performing Organization Address City/[facility]/Zipcode Phone Number [facility] DEPARTMENT OF [address] [place] [id number] PATHOLOGY AND GENOMIC MEDICINE [address] * Ionized calcium (12/30/2018 1:00 PM CDT) Only the most recent of 2 results within the time period is included. pH 7.51 [facility] Ionized calcium 1.14 1.11 - 1.32 mmol/L [facility] Specimen Plasma specimen Performing Organization Address City/[facility] Phone Number [facility] DEPARTMENT [address] [address] PATHOLOGY AND GENOMIC MEDICINE [address] * XR Chest 1 Vw Portable (12/30/2018 6:47 AM CDT) Only the most recent of 6 results within the time period is included. Specimen Narrative Performed At EXAMINATION:XR CHEST 1 VW PORTABLE [facility] CLINICAL HISTORY:pulmonary edema COMPARISON:December 28 IMPRESSION: Pulmonary vascular congestion is decreased from prior The heart remains enlarged. Small bilateral pleural effusions are present and unchanged Mild degenerative changes in the bony structures. [facility]-[id number] Procedure Note Interface, Radiology Results Incoming - 12/30/2018 7:05 AM CDT EXAMINATION: XR CHEST 1 VW PORTABLE CLINICAL HISTORY: pulmonary edema COMPARISON: December 28 IMPRESSION: Pulmonary vascular congestion is decreased from prior The heart remains enlarged. Small bilateral pleural effusions are present and unchanged Mild degenerative changes in the bony structures. [facility]-[id number] Performing Organization Address [facility] [place] [address] * Partial thromboplastin time, activated (12/29/2018 1:40 PM CDT) Only the most recent of 4 results within the time period is included. Pathologist [facility] PTT 30.9 23.0 - 36.0 sec [place] Comment: [facility] PTT therapeutic range for HOSPITAL unfractionated heparin is 61.0-112.0 seconds which corresponds to Anti-Xa 0.3-0.7 U/ml. Specimen Blood Performing Organization Address [facility] Phone Number [facility] [place] [address] PATHOLOGY AND GENOMIC MEDICINE [address] * Anti Xa, unfractionated (12/28/2018 10:18 PM CDT) [facility] Anti Xa, <0.10 (L)Comment: Therapeutic 0.30 - 0.70 U/mL [place] unfractionated Range: 0.30 - 0.70 U/mL [facility] Specimen Blood Performing Organization Address City/[facility]/Zipcode Phone Number [facility] [place] [address] PATHOLOGY AND GENOMIC MEDICINE [address] * ECG 12 lead (12/28/2018 6:55 PM CDT) Only the most recent of 7 results within the time period is included. Ventricular 139 [facility] rate Atrial rate 129 [facility] QRSD interval 120 [facility] QT interval 318 [facility] QTC interval 483 [facility] QRS axis 1 11 [facility] T wave axis 109 [facility] EKG impression Atrial fibrillation with rapid [facility] ventricular response-Anterolateral infarct (cited on or before 27-DEC-2018)-Abnormal ECG-In automated comparison with ECG of 28-DEC-2018 18:54,-ST no longer depressed in Anterior leads- Specimen Narrative Performed At Performing Organization Address City/[facility] [place] [address] * Troponin (12/28/2018 6:42 PM CDT) Only the most recent of 10 results within the time period is included. [facility] Troponin 0.226 (H) 0.000 - 0.040 ng/mL [place] Comment: [facility] changed methodology effective: 09/04/2018 at 10:00 am The new method has a 99th percentile cutoff of 0.040 ng/mL Specimen Plasma specimen Performing Organization Address City/[facility] [place] [address] PATHOLOGY AND [facility] [address] * Beta hydroxybutyrate (12/28/2018 1:20 PM CDT) [facility] Beta 1.71 (H) 0.02 - 0.27 mmol/L [place] [facility] cent[facility]rate [facility] Specimen Serum Performing Organization Address City/[facility] Phone Number [facility] [place] [address] PATHOLOGY [facility] [address] * Lactic acid level (12/28/2018 1:20 PM CDT) Only the most recent of 4 results within the time period is included. [facility] Lactic acid 1.8 0.5 - 2.2 mmol/L [facility] Specimen Blood Performing Organization Address City/State/Zipcode Phone Number [facility] [place] [address] PATHOLOGY [address] * Total iron binding capacity (12/28/2018 2:50 AM CDT) [facility] Iron level 22 (L) 37 - 145 ug/dL [facility] Iron binding 125 (L) 200 - 400 ug/dL [facility] % Saturation 17.6 15.0 - 38.0 % [facility] Specimen Plasma specimen Performing Organization Address City/[facility] Phone Number [facility] [place] [address] PATHOLOGY AND [address] * Venous blood gas (12/28/2018 2:50 AM CDT) Only the most recent of 3 results within the time period is included. [facility] pH, venous 7.38 7.32 - 7.42 [facility] pCO2, venous 31 (L) 45 - 51 mmHg [facility] pO2, venous 40 25 - 40 mmHg [facility] Base excess, -6 (L) -2 - 2 meq/L [facility] O2 saturation, 69 40 - 70 % [facility] Bicarbonate, 18.3 (L) 21.0 - 28.0 mmol/L [facility] Specimen Blood Performing Organization Address City/[facility] Phone Number [facility] [place] [address] PATHOLOGY AND [facility] [address] * Folate RBC (group test) (12/28/2018 2:50 AM CDT) [facility] RBC folate 1,855 (H) 499 - 1,504 ng/mL [facility] Specimen Blood Performing Organization Address City/[facility]/Zipcode Phone Number [facility] [place] [address] PATHOLOGY AND [facility] [address] * Folate level (12/28/2018 2:50 AM CDT) Folate 18.3 4.8 - 24.2 ng/mL [facility] Specimen Serum Performing Organization Address City/State/Zipcode Phone Number [facility] DEPARTMENT OF [address] [place] [address] PATHOLOGY AND GENOMIC MEDICINE [place] [facility] [address] [place] [address] * Vitamin B12 level (12/28/2018 2:50 AM CDT) Vitamin B12 757 211 - 946 pg/mL [place] Comment: [facility] Significant overlap exists HOSPITAL between normal and deficiency states. However, most patients with deficiencies will have Serum B12 <200 pg/mL. Specimen Serum Performing Organization Address [facility]/Zipcode Phone Number [facility] DEPARTMENT OF [address] [place] [address] PATHOLOGY AND GENOMIC MEDICINE [place] [facility] * CT Soft Tissue Neck W Contrast (12/27/2018 5:55 PM CDT) Specimen Narrative Performed At EXAMINATION: CT SOFT TISSUE NECK W CONTRAST HM [facility] CLINICAL HISTORY: Suspected left jaw abscess COMPARISON:None TECHNIQUE: Postcontrast enhanced imaging through the neck was performed from the upper chest through the skull base with coronal and sagittal reconstructed images. CT scans are performed using radiation dose reduction techniques (iterative reconstruction and/or automated exposure control). Technical factors are evaluated and adjusted to ensure appropriate moderation of exposure. Automated dose management technology is applied to adjust radiation exposure while achieving a diagnostic quality image. FINDINGS: Infiltrative soft tissue centered in the left submandibular space most likely inflammatory. There is associated edema in the overlying superficial facial subcutaneous soft tissues. In addition, there are inflammatory changes/myositis of the left muscles of mastication. A drainable collection is not identified. There is mild prominence of the left submandibular duct relative the right side. However obstructing calculus is not identified along the course of the duct within the floor of mouth. Note that there is an ossific density in proximity to the submandibular duct which measures 4 mm, however does not follow the course of the submandibular duct. Other findings: Intracranial contents are normal. The orbits are normal. Sinuses are clear. Skull base is intact. Edema results in effacement of the left glossotonsillar sulcus. Oral cavity otherwise is unremarkable. Nasopharynx and oropharynx are normal. The hypopharynx and larynx are normal. IMPRESSION: Inflammatory changes as described above centered in the left submandibular and city letter carrier spaces, favored to represent the sequela of acute sialoadenitis. A drainable collection is not identified. No convincing sialolith, although there is mild prominence of the left mandibular duct. Malignancy is not excluded in the appropriate clinical setting. [id number] Procedure Note Hm Interface, Radiology Results Incoming - 12/27/2018 6:59 PM CDT EXAMINATION: CT SOFT TISSUE NECK W CONTRAST CLINICAL HISTORY: Suspected left jaw abscess COMPARISON: None TECHNIQUE: Postcontrast enhanced imaging through the neck was performed from the upper chest through the skull base with coronal and sagittal reconstructed images. CT scans are performed using radiation dose reduction techniques (iterative reconstruction and/or automated exposure control). Technical factors are evaluated and adjusted to ensure appropriate moderation of exposure. Automated dose management technology is applied to adjust radiation exposure while achieving a diagnostic quality image. FINDINGS: Infiltrative soft tissue centered in the left submandibular space most likely inflammatory. There is associated edema in the overlying superficial facial subcutaneous soft tissues. In addition, there are inflammatory changes/myositis of the left muscles of mastication. A drainable collection is not identified. There is mild prominence of the left submandibular duct relative the right side. However obstructing calculus is not identified along the course of the duct within the floor of mouth. Note that there is an ossific density in proximity to the submandibular duct which measures 4 mm, however does not follow the course of the submandibular duct. Other findings: Intracranial contents are normal. The orbits are normal. Sinuses are clear. Skull base is intact. Edema results in effacement of the left glossotonsillar sulcus. Oral cavity otherwise is unremarkable. Nasopharynx and oropharynx are normal. The hypopharynx and larynx are normal. IMPRESSION: Inflammatory changes as described above centered in the left submandibular and city letter carrier spaces, favored to represent the sequela of acute sialoadenitis. A drainable collection is not identified. No convincing sialolith, although there is mild prominence of the left mandibular duct. Malignancy is not excluded in the appropriate clinical setting. [facility]-[id number] Performing Organization Address City/State/Zipcode Phone Number [facility] [address] [place] [address] * CT Maxillofacial W Contrast (12/27/2018 5:55 PM CDT) Specimen Narrative Performed At EXAMINATION: CT MAXILLOFACIAL W CONTRAST HM [facility] CLINICAL HISTORY: concern for neck jaw mass - evaluate for abscess COMPARISON:None TECHNIQUE: Axial contrast enhanced images through the maxillofacial bones were obtained with bone and soft tissue algorithms. Coronal and sagittal reconstructions were also performed. CT scans are performed using radiation dose reduction techniques (iterative reconstruction and/or automated exposure control). Technical factors are evaluated and adjusted to ensure appropriate moderation of exposure. Automated dose management technology is applied to adjust radiation exposure while achieving a diagnostic quality image. FINDINGS: No acute maxillofacial fracture. Sinuses and orbits are normal. Infiltrative soft tissue centered in the left submandibular space most likely inflammatory. There is associated edema in the overlying superficial facial subcutaneous soft tissues. In addition, there are inflammatory changes/myositis of the left muscles of mastication. A drainable collection is not identified. There is mild prominence of the left submandibular duct relative the right side. However obstructing calculus is not identified along the course of the duct within the floor of mouth. Note that there is an ossific density in proximity to the submandibular duct which measures 4 mm, however does not follow the course of the submandibular duct. IMPRESSION: Inflammatory changes as described above centered in the left submandibular and city letter carrier spaces, favored to represent the sequela of acute sialoadenitis. A drainable collection is not identified. No convincing sialolith, although there is mild prominence of the left submandibular duct. Malignancy is not excluded in the appropriate clinical setting. [id number] Procedure Note Interface, Radiology Results Incoming - 12/27/2018 7:00 PM CDT EXAMINATION: CT MAXILLOFACIAL W CONTRAST CLINICAL HISTORY: concern for neck jaw mass - evaluate for abscess COMPARISON: None TECHNIQUE: Axial contrast enhanced images through the maxillofacial bones were obtained with bone and soft tissue algorithms. Coronal and sagittal reconstructions were also performed. CT scans are performed using radiation dose reduction techniques (iterative reconstruction and/or automated exposure control). Technical factors are evaluated and adjusted to ensure appropriate moderation of exposure. Automated dose management technology is applied to adjust radiation exposure while achieving a diagnostic quality image. FINDINGS: No acute maxillofacial fracture. Sinuses and orbits are normal. Infiltrative soft tissue centered in the left submandibular space most likely inflammatory. There is associated edema in the overlying superficial facial subcutaneous soft tissues. In addition, there are inflammatory changes/myositis of the left muscles of mastication. A drainable collection is not identified. There is mild prominence of the left submandibular duct relative the right side. However obstructing calculus is not identified along the course of the duct within the floor of mouth. Note that there is an ossific density in proximity to the submandibular duct which measures 4 mm, however does not follow the course of the submandibular duct. IMPRESSION: Inflammatory changes as described above centered in the left submandibular and city letter carrier spaces, favored to represent the sequela of acute sialoadenitis. A drainable collection is not identified. No convincing sialolith, although there is mild prominence of the left submandibular duct. Malignancy is not excluded in the appropriate clinical setting. [facility]-[id number] Performing Organization Address City/State/Zipcode Phone Number [facility] [address] [place] [id number] * Respiratory pathogen panel (12/27/2018 12:31 PM CDT) Only the most recent of 2 results within the time period is included. Pathologist [facility] Respiratory Negative for all pathogens [place] pathogen panel tested: SIKHISM Negative for Adenovirus [facility] Negative for Coronavirus HKU1 Negative for Coronavirus NL63 Negative for Coronavirus 229E Negative for Coronavirus OC43 Negative for Human Metapneumovirus Negative for Rhinovirus/Enterovirus Negative for Influenza A Negative for Influenza A/H1 Negative for Influenza A/H3 Negative for Influenza A/H1-2009 Negative for Influenza B Negative for Parainfluenza Virus 1 Negative for Parainfluenza Virus 2 Negative for Parainfluenza Virus 3 Negative for Parainfluenza Virus 4 Negative for Respiratory Syncytial Virus Negative for Bordetella pertussis Negative for Chlamydophila pneumoniae Negative for Mycoplasma pneumoniae This real-time PCR assay detects the presence of nucleic acids (RNA or DNA) for the respiratory pathogens listed. A result of "Not-detected" does not exclude the possibility of the presence of one or more pathogens at concentrations less than the detectable limits of the assay. Comment: Specimen Information Specimen Source: Nares Specimen Site: Not otherwise specified Specimen Nares - Not otherwise specified Performing Organization Address City/State/Zipcode Phone Number [facility] DEPARTMENT OF [address] [place] [address] PATHOLOGY AND GENOMIC MEDICINE [place] SIKH[facility] [address] [place] [address] HOSPITAL * Prothrombin time with INR (12/27/2018 9:40 AM CDT) Only the most recent of 2 results within the time period is included. Prothrombin 17.5 (H) 11.5 - 14.5 sec [facility] INR 1.5 [place] Comment: [facility] International Normalized HOSPITAL Ratio (INR) is a therapeutic monitoring tool for patients who are stable on oral anticoagulant therapy. An INR of 2.0-3.0 is suggested for deep vein thrombosis/pulmonary embolism. Specimen Blood Performing Organization Address City/State/Zipcode Phone Number [facility] DEPARTMENT OF [address] [place] [address] PATHOLOGY AND GENOMIC MEDICINE [facility] [address] [place] [address] * Comprehensive metabolic panel (12/27/2018 9:40 AM CDT) Only the most recent of 7 results within the time period is included. Pathologist [facility] Sodium 139 135 - 148 mEq/L [facility] Potassium 3.5 3.5 - 5.0 mEq/L [facility] Chloride 107 98 - 112 mEq/L [facility] CO2 19 (L) 24 - 31 mEq/L [facility] Anion gap 13@ANIO 7 - 15 mEq/L [facility] BUN 16 8 - 23 mg/dL [facility] Creatinine 0.84 0.50 - 0.90 mg/dL [facility] Glucose 121 (H) 65 - 99 mg/dL [facility] Calcium 8.7 (L) 8.8 - 10.2 mg/dL [facility] Protein 6.0 (L) 6.3 - 8.3 g/dL [place] Comment: [facility] 4.6-7.0 g/dL 1 week 4.4-7.6 g/dL 7 months-1year 5.1-7.3 g/dL 1-2 years5.6-7 .5 g/dL >3 years6.0-8 .0 g/dL 18-150 6.3-8.3 g/dL Albumin 2.0 (L) 3.5 - 5.0 g/dL [facility] A/G ratio 0.5 (L) 0.7 - 3.8 [facility] Alkaline 74 35 - 104 U/L [place] phosphatase [facility] AST 28 10 - 35 U/L [facility] ALT 13 5 - 50 U/L [facility] Total bilirubin 0.5 0.0 - 1.2 mg/dL [facility] Specimen Plasma specimen Performing Organization Address City/[facility] Phone Number [facility] [place] [address] PATHOLOGY AND GENOMIC MEDICINE [address] * Gram stain (12/27/2018 9:02 AM CDT) Only the most recent of 3 results within the time period is included. Gram stain No WBC's or organisms seen. [place] result Comment: SIKHISM Specimen Information [facility] Specimen Source: Urine Specimen Site: Catheterized Specimen Urine - Catheterized Performing Organization Address [facility] Hospital[facility] Phone Number [facility] [place] [address] PATHOLOGY AND GENOMIC MEDICINE [address] * Urine culture (12/27/2018 9:02 AM CDT) Only the most recent of 3 results within the time period is included. Urine culture No growth after 24 hours [place] isolate Comment: SIKHISM Specimen Information [facility] Specimen Source: Urine Specimen Site: Catheterized Specimen Urine - Catheterized Performing Organization Address City/[facility] Phone Number [facility] DEPARTMENT OF [address] [place] [address] PATHOLOGY AND GENOMIC MEDICINE [address] * Blood culture, aerobic & anaerobic (12/27/2018 7:45 AM CDT) Only the most recent of 6 results within the time period is included. Blood culture No growth after 5 days of [place] isolate incubation. SIKHISM Comment: HOSPITAL Specimen Information Specimen Source: Blood Specimen Site: Right Specimen Blood - Right Performing Organization Address City/[facility] Phone Number [facility] DEPARTMENT OF [address] [place] [address] PATHOLOGY AND GENOMIC MEDICINE [address] * Urinalysis screen and microscopy, with reflex to culture (12/27/2018 7:35 AM CDT) Only the most recent of 3 results within the time period is included. Specimen site Catheterized [facility] Color, UA Yellow [facility] Appearance, UA Clear [facility] Specific 1.018 1.001 - 1.035 [place] gravity, [facility] pH, UA 6.0 5.0 - 8.5 [facility] Protein, UA 1+ (A) Negative [facility] Glucose, UA Negative Negative [facility] Ketones, UA Trace (A) Negative [facility] Bilirubin, UA Negative Negative [facility] Blood, UA Small (A) Negative [facility] Nitrite, UA Negative Negative [facility] Urobilinogen, <2.[address] [facility] Leukocyte Negative Negative [place] [facility] Epithelial <1 /HPF [place] [facility] WBC, UA 21 (H) 0 - 4 /HPF [facility] RBC, UA 2 0 - 5 /HPF [facility] Bacteria, UA None seen None seen [facility] Yeast, UA None seen [facility] Yeast with None seen [place] [facility] Hyaline casts, >20 (A) /LPF [facility] Specimen Urine Performing Organization Address City/[facility] Phone Number [facility] [place] [address] PATHOLOGY AND [facility] MEDICINE [address] * Lactic acid level, SEPSIS - Now and repeat 2x every 3 hours (12/27/2018 6:30 AM CDT) Lactic acid 1.3 0.5 - 2.2 mmol/L [facility] Specimen Blood Performing Organization Address City/[facility] Phone Number [facility] [place] [address] PATHOLOGY AND GENOMIC MEDICINE [address] * Thyroid stimulating hormone (12/27/2018 6:30 AM CDT) Only the most recent of 2 results within the time period is included. TSH 1.25 0.27 - 4.20 uIU/mL [facility] Specimen Plasma specimen Performing Organization Address [facility] Hospital[facility]d Phone Number [facility] [place] [address] PATHOLOGY AND GENOMIC MEDICINE [address] * Hepatic function panel (12/27/2018 6:30 AM CDT) Only the most recent of 2 results within the time period is included. Albumin 2.1 (L) 3.5 - 5.0 g/dL [facility] Total bilirubin 0.7 0.0 - 1.2 mg/dL [facility] Bilirubin <0.2 0.0 - 0.3 mg/dL [place] direct [facility] Alkaline 75 35 - 104 U/L [place] phosphatase [facility] Protein 6.0 (L) 6.3 - 8.3 g/dL [place] Comment: [facility] 4.6-7.0 g/dL 1 week 4.4-7.6 g/dL 7 months-1year 5.1-7.3 g/dL 1-2 years5.6-7 .5 g/dL >3 years6.0-8 .0 g/dL 18-150 6.3-8.3 g/dL ALT 11 5 - 50 U/L [facility] AST 34 10 - 35 U/L [facility] Specimen Plasma specimen Performing Organization Address City/[facility] Phone Number [facility] DEPARTMENT OF [address] [place] [address] PATHOLOGY AND [facility] MEDICINE [address] * Arterial blood gas (12/27/2018 6:14 AM CDT) Pathologist [facility] pH, arterial 7.45 7.35 - 7.45 [facility] pCO2, arterial 29 (L) 35 - 45 mmHg [facility] pO2, arterial 87 80 - 90 mmHg [facility] Bicarbonate, 19.6 (L) 21.0 - 28.0 mmol/L [facility] Base excess, -3 (L) -2 - 2 mEq/L [facility] O2 saturation, 98 95 - 100 % [facility] Specimen Blood Performing Organization Address City/[facility] Phone Number [facility] [place] [address] PATHOLOGY AND [facility] MEDICINE [address] * Echocardiogram complete w contrast and 3D if needed (12/24/2018 11:25 AM CDT) Specimen Narrative Performed At [facility] Echocardiography Report [id number] [facility] [address], [place] [address] Pat.Name:[facility]IDGET ISAAC [facility].ID:[id number] .Date: 12/24/2018 Refer.MD:MIKE SHELTON MD Exam Time: 10:53:00 AM Study Type:Routine Echo Height:61inWeight:114lb BSA: 1.49 m2 DOBAge:1930,88Y Sex: FEMALEBP:145/63 HR:70 bpmSonogrphr: GALEN Duarte Pat. Stat.:In[place]:[facility] [place] Study Status:Final Echo Event ID:[id number] Order ID:[id number] Reason for Study:General weakness, Elevated BNP History / Clinical:Atrial Fibrillation, Hyperlipidemia Procedures:2D Echo, Colorflow Doppler, Strain Race:C SUMMARY: Normal biventricular systolic function. LV filling pressure is elevated, mean PCWP is 15-20mmHg. Estimated PA systolic pressure is 40 mmHg, assuming a mean RAP of 5 mmHg. FINDINGS: LV: LV size is normal. LV EF is normal. Average GLS is reduced at-16.2%. Overall wall motion is normal. Estimated EF is 55-59%. RV: RV size is normal. RV systolic function is normal. LA: LA volume is moderately enlarged. RA: RA size is normal. AO: Aortic root diameter is normal. BANDAR: No pericardial effusion. Moderate anterior pericardial effusion.There is an anterior space consistent with a prominentepicardial fat pad. AV: No structural AV abnormalities noted. Mild aortic regurgitation. MV: No structural MV abnormalities noted. Mild mitral regurgitation. PV: No structural PV abnormalities noted. A trace of pulmonic regurgitation. TV: No structural TV abnormalities noted. Mild tricuspid regurgitation Jalloh: LV relaxation is impaired. LV filling pressure is elevated, meanPCWP is 15-20mmHg. Other:Estimated PA systolic pressure is 40 mmHg, assuming a mean RAPof 5 mmHg. MEASUREMENTS: 2D Parasternal [place] LVOT 1.7 cmLA Ds4.1 cm LVIDd4.9 cmIndex3.3 cm/m Ao Rtd 2.7 cm Index1.8 cm/m LVIDs3.4 cmLV Lmro276.2 g(87-129) LV%fs 30.6 % LVM Index 88.1 g/m2 IVSd 0.8 cmRWT0.3 LVPWd0.8 cm LA Sng Plane LA Area 23.2 cm2(8.8-23.4) LA Vol68.1 ml Index45.7 ml/m LA LngAx 6.6 cm RA Sng Plane RA Area 12.5 cm2(8.3-19.5) RA Vol24.6 ml Index16.5 ml/m RA LngAx 5.3 cm DOPPLER LVOT For Flow LVOT Area2.3 cm2 LVOT SV 49.2 ml VPVIedXof045.1 cm/sHR74.4 bpm LVOTpkPG 4.9 mmHgLVOT CO3.7 l/min LVOTmnPG 2.5 mmHgLVOT CI2.5 l/m/m2 LVOT TVI21.7 cm Signed 12/24/2018 05:04 PM Shady Torres M.D. Procedure Note Interface, Radiology Results In - 12/24/2018 5:05 PM CDT Echocardiography Report [id number] [address] [facility].Name: BRIDGET ISAAC Franca.ID: [id number] .Date: 12/24/2018 Refer.MD: MIKE SHELTON MD Exam Time: 10:53:00 AM Study Type:Routine Echo Height: 61in Weight: 114lb BSA: 1.49 m2 Age: 6 1930,88Y Sex: FEMALE BP: 145/63 HR: 70 bpm Sonogrphr: GALEN Duarte Pat. Stat.:Inpatient Room: [facility] Study Status:Final Echo Event ID:[id number] Order ID: [id number] Reason for Study:General weakness, Elevated BNP History / Clinical:Atrial Fibrillation, Hyperlipidemia Procedures:2D Echo, Colorflow Doppler, Strain Race: C SUMMARY: Normal biventricular systolic function. LV filling pressure is elevated, mean PCWP is 15-20mmHg. Estimated PA systolic pressure is 40 mmHg, assuming a mean RAP of 5 mmHg. FINDINGS: LV: LV size is normal. LV EF is normal. Average GLS is reduced at -16.2%. Overall wall motion is normal. Estimated EF is 55-59%. RV: RV size is normal. RV systolic function is normal. LA: LA volume is moderately enlarged. RA: RA size is normal. AO: Aortic root diameter is normal. BANDAR: No pericardial effusion. Moderate anterior pericardial effusion. There is an anterior space consistent with a prominent epicardial fat pad. AV: No structural AV abnormalities noted. Mild aortic regurgitation. MV: No structural MV abnormalities noted. Mild mitral regurgitation. PV: No structural PV abnormalities noted. A trace of pulmonic regurgitation. TV: No structural TV abnormalities noted. Mild tricuspid regurgitation Jalloh: LV relaxation is impaired. LV filling pressure is elevated, mean PCWP is 15-20mmHg. Other: Estimated PA systolic pressure is 40 mmHg, assuming a mean RAP of 5 mmHg. MEASUREMENTS: 2D Parasternal [place] LVOT 1.7 cm LA Ds 4.1 cm LVIDd 4.9 cm Index 3.3 cm/m Ao Rtd 2.7 cm Index 1.8 cm/m LVIDs 3.4 cm LV Mass 131.2 g (87-129) LV%fs 30.6 % LVM Index 88.1 g/m2 IVSd 0.8 cm RWT 0.3 LVPWd 0.8 cm LA Sng Plane LA Area 23.2 cm2 (8.8-23.4) LA Vol 68.1 ml Index 45.7 ml/m LA LngAx 6.6 cm RA Sng Plane RA Area 12.5 cm2 (8.3-19.5) RA Vol 24.6 ml Index 16.5 ml/m RA LngAx 5.3 cm DOPPLER LVOT For Flow LVOT Area 2.3 cm2 LVOT SV 49.2 ml LVOTpkVel 110.1 cm/s HR 74.4 bpm LVOTpkPG 4.9 mmHg LVOT CO 3.7 l/min LVOTmnPG 2.5 mmHg LVOT CI 2.5 l/m/m2 LVOT TVI 21.7 cm Signed 12/24/2018 05:04 PM Shady Torres M.D. Performing Organization Address [facility]/Zipcode Phone Number [facility] [address] [place] [address] * AST (SGOT) (12/24/2018 1:32 AM CDT) AST 15 10 - 35 U/L [facility] Specimen Plasma specimen Narrative Performed At results called to and read back by JULIO VELÁSQUEZ/LEELA [facility] DEPARTMENT OF at12/24/201802:29by KXG. PATHOLOGY AND GENOMIC MEDICINE Performing Organization Address [facility]/Zipcode Phone Number [facility] DEPARTMENT OF [address] [place] [address] PATHOLOGY AND GENOMIC MEDICINE [address] * ECG ED Preliminary Interpretation - Not an Order (12/24/2018 12:56 AM CDT) Narrative Performed At Bob Bernardo DO 12/24/20187:50 PM ECG ED Preliminary Interpretation - Not an Order Performed by: Bob Bernardo DO Authorized by: Bob Bernardo DO ECG reviewed by ED Physician in the absence of a roll dough divider: yes Interpretation: Interpretation: abnormal Rate: ECG rate:76 ECG rate assessment: normal Rhythm: Rhythm: sinus rhythm Ectopy: Ectopy: none QRS: QRS axis:Normal QRS intervals:Normal Conduction: Conduction: abnormal Abnormal conduction: complete LBBB ST segments: ST segments:Normal T waves: T waves: normal * XR Forearm 2 Vw Right (11/19/2018 6:02 PM CDT) Specimen Narrative Performed At EXAMINATION: XR FOREARM 2 VW RIGHT [facility] CLINICAL HISTORY:recent falltrauma to R forearm COMPARISON: None available. FINDINGS: The alignment of the right forearm is normal. There is no fracture. The bones are osteoporotic. There is severe thumb carpometacarpal and scattered mild intercarpal osteoarthritis. Appears to be a remote fracture of the right ulnar styloid. There is no elbow joint effusion. IMPRESSION: 1. No acute osseous abnormality of the right forearm. [facility]-[id number] Procedure Note Interface, Radiology Results Incoming - 11/19/2018 6:12 PM CDT EXAMINATION: XR FOREARM 2 VW RIGHT CLINICAL HISTORY: recent fall trauma to R forearm COMPARISON: None available. FINDINGS: The alignment of the right forearm is normal. There is no fracture. The bones are osteoporotic. There is severe thumb carpometacarpal and scattered mild intercarpal osteoarthritis. Appears to be a remote fracture of the right ulnar styloid. There is no elbow joint effusion. IMPRESSION: 1. No acute osseous abnormality of the right forearm. [facility]-[id number] Performing Organization Address City/[facility]/Zipcode Phone Number [facility] [address] [place] [address] * Creatine kinase, total (CPK) (11/18/2018 8:04 PM CDT) Creatine kinase 38 26 - 192 U/L [facility] Specimen Plasma specimen Performing Organization Address City/[facility]/Zipcode Phone Number [facility] DEPARTMENT OF [address] [place] [address] PATHOLOGY AND GENOMIC MEDICINE [address] [address] [facility] * MRI Brain Wo Contrast (10/23/2018 1:15 PM CDT) Specimen Narrative Performed At [facility] EXAMINATION:MRI BRAIN WO CONTRAST CLINICAL HISTORY:R47.01 Aphasia, G20 Parkinson's disease, Focal neuro deficit6 hrsstroke suspected COMPARISON:MRI 11/02/2016; CT 07/15/2018 TECHNIQUE: Noncontrast brain MRI, including 3D T1 VILLATORO, SWAN, and pCASL with PLD of 2.5 seconds. Regional brain segmentation and volumetric analysis was processed with Neuroreader software on an independent workstation and reviewed. FINDINGS: No evidence of acute infarction, hemorrhage, mass lesion, or midline shift. Mild Periventricular white matter T2 FLAIR hyperintensities suggestive of chronic microvascular ischemic changes. Mild-moderate cerebral and to lesser degree cerebellar atrophy with overall brain volume lower limits of normal for age. No disproportionate hippocampal or lobar atrophy to suggest specific neurodegenerative disease. Symmetric enlargement of ventricles and sulci secondary to cortical atrophy. Relative crowding of sulci near vertex and mildly enlarged bilateral sylvian fissures of uncertain significance, cannot exclude early normal pressure hydrocephalus. There is no extra-axial fluid collection. Flow voids of the major intracranial vessels are intact. Right Hippocampus: 3.12 mL, z-score -0.17. Left Hippocampus: 2.88 mL, z-score -0.33. Right Frontal Lobe: 135.7 mL, z-score -0.51. Left Frontal Lobe: 133.9 mL, z-score -0.51. Right Parietal Lobe: 73.4 mL, z-score -0.37. Left Parietal Lobe: 76.9 mL, z-score -0.65. Right Occipital Lobe: 33.4 mL, z-score -0.44. Left Occipital Lobe: 31.0 mL, z-score -0.61. Right Temporal Lobe: 75.0 mL, z-score -0.53. Left Temporal Lobe: 71.6 mL, z-score -0.63. Right Lateral Ventricle: 36.7 mL, z-score 0.90. Left Lateral Ventricle: 34.1 mL, z-score 0.64. Mild global cerebral hypoperfusion with no disproportionate regional hypoperfusion identified. Visualized paranasal sinuses and mastoid air cells are clear. Bilateral lens surgery. Bones and soft tissues are unremarkable. IMPRESSION: 1. Cerebral and cerebellar volume lower limits of normal for age with no disproportionate regional volume loss to suggest specific neurodegenerative disease. 2. 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 3. Mild ventriculomegaly probably secondary to cerebral atrophy. Relative crowding of sulci near vertex and mildly enlarged subarachnoid space along bilateral sylvian fissures of uncertain significance but can be seen with early normal pressure hydrocephalus. 4. Mild global cerebral hypoperfusion with no disproportionate regional hypoperfusion to suggest specific neurodegenerative disease. [id number] Dictated and approved by radiology specialist/fellow: Whit Villar M.D. I, Alfredo Cheek MD, personally reviewed the images and resident's/fellow's findings and agree with the final report. Procedure Note Hm Interface, Radiology Results Incoming - 10/23/2018 5:10 PM CDT EXAMINATION: MRI BRAIN WO CONTRAST CLINICAL HISTORY: R47.01 Aphasia, G20 Parkinson's disease, Focal neuro deficit 6 hrs stroke suspected COMPARISON: MRI 11/02/2016; CT 07/15/2018 TECHNIQUE: Noncontrast brain MRI, including 3D T1 VILLATORO, SWAN, and pCASL with PLD of 2.5 seconds. Regional brain segmentation and volumetric analysis was processed with Neuroreader software on an independent workstation and reviewed. FINDINGS: No evidence of acute infarction, hemorrhage, mass lesion, or midline shift. Mild Periventricular white matter T2 FLAIR hyperintensities suggestive of chronic microvascular ischemic changes. Mild-moderate cerebral and to lesser degree cerebellar atrophy with overall brain volume lower limits of normal for age. No disproportionate hippocampal or lobar atrophy to suggest specific neurodegenerative disease. Symmetric enlargement of ventricles and sulci secondary to cortical atrophy. Relative crowding of sulci near vertex and mildly enlarged bilateral sylvian fissures of uncertain significance, cannot exclude early normal pressure hydrocephalus. There is no extra-axial fluid collection. Flow voids of the major intracranial vessels are intact. Right Hippocampus: 3.12 mL, z-score -0.17. Left Hippocampus: 2.88 mL, z-score -0.33. Right Frontal Lobe: 135.7 mL, z-score -0.51. Left Frontal Lobe: 133.9 mL, z-score -0.51. Right Parietal Lobe: 73.4 mL, z-score -0.37. Left Parietal Lobe: 76.9 mL, z-score -0.65. Right Occipital Lobe: 33.4 mL, z-score -0.44. Left Occipital Lobe: 31.0 mL, z-score -0.61. Right Temporal Lobe: 75.0 mL, z-score -0.53. Left Temporal Lobe: 71.6 mL, z-score -0.63. Right Lateral Ventricle: 36.7 mL, z-score 0.90. Left Lateral Ventricle: 34.1 mL, z-score 0.64. Mild global cerebral hypoperfusion with no disproportionate regional hypoperfusion identified. Visualized paranasal sinuses and mastoid air cells are clear. Bilateral lens surgery. Bones and soft tissues are unremarkable. IMPRESSION: 1. Cerebral and cerebellar volume lower limits of normal for age with no disproportionate regional volume loss to suggest specific neurodegenerative disease. 2. 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 3. Mild ventriculomegaly probably secondary to cerebral atrophy. Relative crowding of sulci near vertex and mildly enlarged subarachnoid space along bilateral sylvian fissures of uncertain significance but can be seen with early normal pressure hydrocephalus. 4. Mild global cerebral hypoperfusion with no disproportionate regional hypoperfusion to suggest specific neurodegenerative disease. [id number] Dictated and approved by radiology specialist/fellow: Whit Villar M.D. I, Alfredo Cheek MD, personally reviewed the images and resident's/fellow's findings and agree with the final report. Performing Organization Address City/State/Zipcode Phone Number [facility] [address] [place] [address] * XR Thoracic Spine 3 Vw (06/18/2018 12:14 PM INSPECTOR FINISHING) Only the most recent of 2 results within the time period is included. Specimen Narrative Performed At EXAMINATION: XR THORACIC SPINE 3 [facility] CLINICAL HISTORY: M48.44XD Fatigue fracture of vertebrathoracic regionsubsequent encounter for fracture with routine healing, Thoracic fracture COMPARISON:Thoracic spine radiograph 04/16/2018 IMPRESSION: No significant change in vertebral body height of severe compression fracture of T12, though there is a vacuum cleft now present within the vertebral body. While the vertebral body height is not significantly changed from previous examination, vertebral height loss appears slightly worsened compared with CT of the lumbar spine performed 03/27/2018. No other fracture is identified. No subluxation. Mild degenerative endplate changes throughout the thoracic spine. Decreased bone mineral density does not appear significantly changed. [id number] Procedure Note Hm Interface, Radiology Results Incoming - 06/18/2018 2:56 PM INSPECTOR FINISHING EXAMINATION: XR THORACIC SPINE 3 VW CLINICAL HISTORY: M48.44XD Fatigue fracture of vertebra thoracic region subsequent encounter for fracture with routine healing, Thoracic fracture COMPARISON: Thoracic spine radiograph 04/16/2018 IMPRESSION: No significant change in vertebral body height of severe compression fracture of T12, though there is a vacuum cleft now present within the vertebral body. While the vertebral body height is not significantly changed from previous examination, vertebral height loss appears slightly worsened compared with CT of the lumbar spine performed 03/27/2018. No other fracture is identified. No subluxation. Mild degenerative endplate changes throughout the thoracic spine. Decreased bone mineral density does not appear significantly changed. [id number] Performing Organization Address City/State/Zipcode Phone Number [facility] [address] [place] [address] * MRI Lumbar Spine Wo Contrast (03/27/2018 10:18 AM INSPECTOR FINISHING) Specimen Narrative Performed At [facility] EXAMINATION: MRI LUMBAR SPINE WO CONTRAST CLINICAL HISTORY: Back painrisk factors (osteoporosis or chronic steroid use or elderly) Technique: Routine unenhanced MRI of the lumbar spine. Comparison: CT 03/27/18. Findings: There is full complement of vertebra. There is redemonstration of acute burst fracture of superior endplate of T12 vertebral body with minimal retropulsion and no significant canal stenosis. There is associated marrow edema on STIR sequence suggestive of acuity. There is a T11 vertebral body hemangioma. There is marrow edema in the superior aspect of this vertebral body and developing endplate fracture is not excluded however the vertebral body height is grossly maintained at this time. For the purposes of this dictation, the last well-defined interspace is called L5-S1. There is anatomic alignment of the lumbar spine. The lumbar vertebral body heights are maintained. There is L3-L4 and L4-L5 disc degeneration with fatty degenerative endplate signal abnormality most notable at L4-L5. L1-2: No significant spinal canal stenosis or neural foraminal narrowing. L2-3: No significant spinal canal stenosis or neural foraminal narrowing. L3-4: No central spinal stenosis. Left subarticular zone narrowing. Bilateral facet arthropathy. Mild right neural foraminal narrowing.. Disc bulge. L4-5: Disc bulge eccentric to the left. Bilateral facet arthropathy. Bilateral subarticular zone narrowing. No central spinal stenosis. Mild to moderate left neural foraminal narrowing. L5-S1: Mild disc bulge. Left greater than right facet arthropathy. No significant canal stenosis. Moderate right and moderate left neural foraminal narrowing. There is exaggerated thoracic kyphosis. Normal appearance and position of the terminal spinal cord. Distended gallbladder. Impression: Redemonstration of acute burst fracture of superior endplate of T12 without significant associated canal stenosis. T11 superior endplate edema for which developing endplate fracture is not excluded noting vertebral body height is grossly maintained, attention on follow-up. [id number] Procedure Note Hm Interface, Radiology Results Incoming - 03/27/2018 10:56 AM INSPECTOR FINISHING EXAMINATION: MRI LUMBAR SPINE WO CONTRAST CLINICAL HISTORY: Back pain risk factors (osteoporosis or chronic steroid use or elderly) Technique: Routine unenhanced MRI of the lumbar spine. Comparison: CT 03/27/18. Findings: There is full complement of vertebra. There is redemonstration of acute burst fracture of superior endplate of T12 vertebral body with minimal retropulsion and no significant canal stenosis. There is associated marrow edema on STIR sequence suggestive of acuity. There is a T11 vertebral body hemangioma. There is marrow edema in the superior aspect of this vertebral body and developing endplate fracture is not excluded however the vertebral body height is grossly maintained at this time. For the purposes of this dictation, the last well-defined interspace is called L5-S1. There is anatomic alignment of the lumbar spine. The lumbar vertebral body heights are maintained. There is L3-L4 and L4-L5 disc degeneration with fatty degenerative endplate signal abnormality most notable at L4-L5. L1-2: No significant spinal canal stenosis or neural foraminal narrowing. L2-3: No significant spinal canal stenosis or neural foraminal narrowing. L3-4: No central spinal stenosis. Left subarticular zone narrowing. Bilateral facet arthropathy. Mild right neural foraminal narrowing.. Disc bulge. L4-5: Disc bulge eccentric to the left. Bilateral facet arthropathy. Bilateral subarticular zone narrowing. No central spinal stenosis. Mild to moderate left neural foraminal narrowing. L5-S1: Mild disc bulge. Left greater than right facet arthropathy. No significant canal stenosis. Moderate right and moderate left neural foraminal narrowing. There is exaggerated thoracic kyphosis. Normal appearance and position of the terminal spinal cord. Distended gallbladder. Impression: Redemonstration of acute burst fracture of superior endplate of T12 without significant associated canal stenosis. T11 superior endplate edema for which developing endplate fracture is not excluded noting vertebral body height is grossly maintained, attention on follow-up. [id number] Performing Organization Address City/State/Zipcode Phone Number [facility] [address] [place] [address] * CT Pelvis Wo Contrast (03/27/2018 2:59 AM INSPECTOR FINISHING) Specimen Narrative Performed At EXAMINATION:CT PELVIS WO CONTRAST [facility] CLINICAL HISTORY:pain TECHNIQUE:Multiple axial images of the pelvis were obtained without intravenous contrast. The lack of intravenous contrast reduces sensitivity of detecting solid organ disease. Sagittal and coronal computerized reformatted images were also obtained. CT scans are performed using radiation dose reduction techniques (iterative reconstruction and/or automated exposure control). Technical factors are evaluated and adjusted to ensure appropriate moderation of exposure. Automated dose management technology is applied to adjust radiation exposure while achieving a diagnostic quality image. COMPARISON:CT 06/09/2016. IMPRESSION: No acute osseous abnormality of the bony pelvis or proximal femurs visualized. Diffuse osteopenia. Sigmoid diverticulosis. See also concurrent CT lumbar spine. [facility]-[id number] Procedure Note Interface, Radiology Results Incoming - 03/27/2018 3:07 AM INSPECTOR FINISHING EXAMINATION: CT PELVIS WO CONTRAST CLINICAL HISTORY: pain TECHNIQUE:Multiple axial images of the pelvis were obtained without intravenous contrast. The lack of intravenous contrast reduces sensitivity of detecting solid organ disease. Sagittal and coronal computerized reformatted images were also obtained. CT scans are performed using radiation dose reduction techniques (iterative reconstruction and/or automated exposure control). Technical factors are evaluated and adjusted to ensure appropriate moderation of exposure. Automated dose management technology is applied to adjust radiation exposure while achieving a diagnostic quality image. COMPARISON: CT 06/09/2016. IMPRESSION: No acute osseous abnormality of the bony pelvis or proximal femurs visualized. Diffuse osteopenia. Sigmoid diverticulosis. See also concurrent CT lumbar spine. [facility]-[id number] Performing Organization Address City/State/Zipcode Phone Number [facility] [address] [place] [address] * CT Lumbar Spine Wo Contrast (03/27/2018 2:58 AM INSPECTOR FINISHING) Specimen Narrative Performed At EXAMINATION: CT LUMBAR SPINE WO CONTRAST [facility] CLINICAL HISTORY: pain COMPARISON:None TECHNIQUE: Noncontrast enhanced axial images of the spine were obtained with coronal and sagittal reconstructed algorithms CT imaging was performed with iterative reconstruction technique and/or automated exposure control to reduce radiation dose. FINDINGS: Lumbar lordosis is maintained. No subluxations are seen. Acute fracture of superior endplate of T12 is identified, involving the anterior cortex and posterior cortex, and extending into the base of the right pedicle, compatible with a burst fracture. Mild to moderate degenerative change of the lumbar spine. There is mild narrowing of spinal canal at L2-L3 and [id number] narrowing of spinal canal at L3-L4. Moderate to severe spinal canal stenosis is seen at L4-L5. There is mild to moderate narrowing of right neural foramina at T11-T12. There is mild neural foraminal stenosis on the left at L4-L5. Mild right and moderate to severe left neural foraminal stenosis at L5-S1. 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 As before, the primary consideration is fibrosing mesenteritis. Punctate nonobstructive calculus of left renal collecting system. IMPRESSION: Acute burst fracture of superior endplate of T12 is identified. [id number] degenerative change of the lumbar spine. Areas of spinal canal and neural foraminal stenosis are seen as detailed above. Punctate nonobstructive calculus of the left renal collecting system. [facility]-[id number] Procedure Note Interface, Radiology Results Incoming - 03/27/2018 3:13 AM INSPECTOR FINISHING EXAMINATION: CT LUMBAR SPINE WO CONTRAST CLINICAL HISTORY: pain COMPARISON: None TECHNIQUE: Noncontrast enhanced axial images of the spine were obtained with coronal and sagittal reconstructed algorithms CT imaging was performed with iterative reconstruction technique and/or automated exposure control to reduce radiation dose. FINDINGS: Lumbar lordosis is maintained. No subluxations are seen. Acute fracture of superior endplate of T12 is identified, involving the anterior cortex and posterior cortex, and extending into the base of the right pedicle, compatible with a burst fracture. Mild to moderate degenerative change of the lumbar spine. There is mild narrowing of spinal canal at L2-L3 and [id number] narrowing of spinal canal at L3-L4. Moderate to severe spinal canal stenosis is seen at L4-L5. There is mild to moderate narrowing of right neural foramina at T11-T12. There is mild neural foraminal stenosis on the left at L4-L5. Mild right and moderate to severe left neural foraminal stenosis at L5-S1. 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 As before, the primary consideration is fibrosing mesenteritis. Punctate nonobstructive calculus of left renal collecting system. IMPRESSION: Acute burst fracture of superior endplate of T12 is identified. [id number] degenerative change of the lumbar spine. Areas of spinal canal and neural foraminal stenosis are seen as detailed above. Punctate nonobstructive calculus of the left renal collecting system. [facility]-[id number] Performing Organization Address City/State/Zipcode Phone Number [facility] [address] [place] [address] after 01/21/2018 Insurance Type Payer Benefit Subscriber ID Effective Phone Address Plan / Dates Group Medicare MEDICARE MEDICARE xxxxxxxxxxx 1997-P [place], PART A AND resent [place] Commercial AAR AAR xxxxxxxxxxx 2007-P SUPPLEMENT resent Advance Directives For more information, please contact: [phone] [employer]iling [employer] Explanation Type Date Recorded Advance Directives, 07/14/2018 7:36 PM Living Will and Medical Power of [employer] POA Advance Directives, 01/05/2019 4:47 AM Living Will and Medical Power of [employer]
--- OUTSIDE RECORDS SUMMARY | 2019-01-22 09:38 | XMS REPORT ---
Author Author [facility] Address Unknown Phone Unavailable Care Team Providers Care Mother Repairer Name Role Phone GEORGIANA GAMBOA Unavailable Unavailable Payers Payer Name Policy Type Policy Number Effective Date Expiration Date Problems This patient has no known problems. Allergies, Adverse Reactions, Alerts Allergy Name Allergy Type Status Severity Reaction(s) Onset Date Inactive Date Treating Clinician Comments No Known Drug Intolerances DA Active U 2009-03-20 00:00:00 No Known Contrast Allergies DA Active U 2006-07-27 00:00:00 No Known Drug Allergies DA Active U 2006-07-27 00:00:00 No Known Food Allergies DA Active U 2006-07-27 00:00:00 No Known Other Allergies DA Active U 2006-07-27 00:00:00 Medications This patient has no known medications. Results Test Description Test Time Test Comments Text Results Atomic Results Result Comments - XR CHEST 1 V 2018-10-07 23:14:00 FAX: Cordelia Pavon DO [phone] [place]: St: [facility] FAX: Georgiana Isaacs MD [phone] Name: LINDSEY THOMASMARIO PACHECOOE [facility] : 1930 Age/S: 88/F [address] [place] [address] Unit #: [id number] Loc: [address] [place] [address] Phys: Cordelia Villarreal DO Acct: [id number] Dis Date: Status: REG ER PHONE #: [phone] Exam Date: 10/07/20182305 FAX #: [phone] Reason: CHEST PAIN EXAMS: CPT CODE: [id number] XR CHEST 1 V 39887 CHEST, SINGLE VIEW HISTORY: Chest pain following trauma No comparison. FINDINGS: The lungs are clear. The heart size and pulmonary vascularity are within normal limits. There is an old proximal right humerus fracture. No acute fracture demonstrated. IMPRESSION: No acute abnormality. SL:01 at 4794 Reported and signed by: Jann Hawley M.D. CC: Cordelia Villarreal DO; Georgiana Gamboa MD Technologist: RT Reyna(R) Trnscrd Date/Time/By: 10/07/2018 (3988) : By: Tracy PAGE 1 Signed Report - XR PELVIS 1/2 VIEWS 2018-10-07 23:13:00 FAX: Cordelia Pavon DO [phone] [place]: St: [facility] FAX: Georgiana Isaacs MD [phone] Name: SARAH THOMAS [facility] : 1930 Age/S: 88/F [address] [place] [address] Unit #: [id number] Loc: [place] [address] Phys: Cordelia Villarreal DO Acct: [id number] Dis Date: Status: REG ER PHONE #: [phone] Exam Date: 10/07/2018 230 FAX #: [phone] Reason: PELVIC PAIN EXAMS: CPT CODE: [id number] XR PELVIS 1/2 VIEWS 33990 Single view pelvis HISTORY: Pelvic pain following trauma COMPARISON: None. FINDINGS: No acute fracture or dislocation is seen. Sacroiliac joints and pubic symphysis appear normal. The low lumbar spine shows extensive degenerative disc disease. IMPRESSION: 1. No acute fracture. 2. 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 SL:01 at 2313 Reported and signed by: Jann Hawley M.D. CC: Cordelia Villarreal DO; Georgiana Gamboa MD Technologist: RT Reyna(R) Trnscrd Date/Time/By: 10/07/2018 (873) : By: Tracy Orig Print D/T: S: 10/07/2018 (1931) PAGE 1 Signed Report - CT C-SPINE W/O CONT 2018-10-07 22:42:00 Name: SARAH THOMAS [facility] : 1930 Age/S: 88 / F [address] [place] [address] Blvd Unit #: [id number] Loc: [place] [address] Phys: Cordelia Villarreal DO Acct: [id number] Dis Date: Status: REG ER PHONE #: [phone] Exam Date: 10/07/20182213 FAX #: [phone] Reason: NECK PAIN EXAMS: CPT CODE: [id number] CT C-SPINE W/O CONT [address] HEAD, UNENHANCED CT CERVICAL SPINE INDICATION: Headache and neck pain after fall TECHNIQUE: Unenhanced CT was performed from the skull vertex to the foramen magnum with axial, coronal and sagittal reconstructions. Radiation dose length product 420 mGy-cm. Unenhanced CT was performed of the cervical spine with axial, coronal and sagittal reconstructions. Radiation dose length product 322 mGy-cm. COMPARISONS: None. FINDINGS: CT HEAD: The paranasal sinuses are clear as visualized. The mastoid air cells and middle ears appear clear as visualized. There is no acute depressed skull fracture. There is a left parietal scalp soft tissue contusion. There is no retained radiodense foreign body. There is a moderate burden of atherosclerotic va scular calcification of the intracranial arteries. There is mild ventriculomegaly due to white matter volume loss. There is no hydrocephalus. There is moderate generalized brain parenchymal volume loss. There is a mild burden of presumed chronic small vessel ischemic hypodense lesions in the white matter. There is no cerebral mass effect, midline shift, intracranial hemorrhage or acute large vessel territory cerebral cortical edema. CT CERVICAL SPINE: There is an age-indeterminate deformity of the right humeral neck on the [place] ma[place] view. 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 There is no acute cervical spine fracture or dislocation. There are multilevel degenerative disc and spondylotic changes of the spine. There is mild spinal canal stenosis at C3-C4 and C6-C7. There is no prevertebral soft tissue swelling. PAGE 1 Signed Report (CONTINUED) Name: SARAH THOMAS [facility] : 1930 Age/S: 88 / F [address] [place], [place] [address] Unit #: [id number] Loc: [place] [address] Phys: CherelleCordelia DO Acct: [id number] Dis Date: Status: REG ER PHONE #: [phone] Exam Date: 10/07/2018 2214 FAX #: [phone] Reason: NECK PAIN EXAMS: CPT CODE: [id number] CT C-SPINE W/O CONT 27593 <Continued> There are incompletely imaged coronary vascular calcifications. There is mild atherosclerotic vascular calcification of the aorta. There is moderate atherosclerotic calcification of the carotid vasculature. There is no cervical lymphadenopathy, mass or organized fluid collection. The lung apices reveal no acute process. There are interstitial fibrotic changes in the upper lobes, left greater than right. There is mild bronchiectasis. There is a 3 mm noncalcified right upper lobe subpleural pulmonary nodule on axial image 61 of series 3. IMPRESSION: CT HEAD: 1. There is no acute intracranial process. 2. There is a left parietal scalp soft tissue contusion. There is no acute depressed skull fracture. CT CERVICAL SPINE: 1. There is an age-indeterminate deformity of the right humeral neck on the [place] ma[place] view. 2. There is no acute cervical spine fracture or dislocation. 3. There is a 3 mm noncalcified right upper lobe subpleural pulmonary nodule. If there are no risk factors for development of pulmonary malignancy, no follow-up would be recommended. If there are risk factors for development of malignancy, consider a 12 month follow-up CT of the chest to evaluate long-term stability. (Raquel et al., Fleischner Society, 2017). 4. There are additional nonacute findings that are described above. at 2242 Reported and signed by: Ludwin Rasmussen D.O. PAGE 2 Signed Report (CONTINUED) Name: SARAH THOMAS [facility] : 1930 Age/S: 88 / F [address] [place] [address] Unit #: [id number] Loc: [place] [address] Phys: Andrez Villarrealpaulie WADE Acct: [id number] Dis Date: Status: REG ER PHONE #: [phone] Exam Date: 10/07/20182213 FAX #: [phone] Reason: NECK PAIN EXAMS: CPT CODE: [id number] CT C-SPINE W/O CONT 27054 <Continued> CC: Cordelia Villarreal DO; Georgiana Gamboa MD Technologist:Zahra Hernandez, RT(R) CTDI: DLP: Trnscb Date/Time: 10/07/2018 (2241) [email or web address] Orig Print D/T: S: 10/07/2018 (6) PAGE 3 Signed Report - CT HEAD/BRAIN W/O CONT 2018-10-07 22:42:00 Name: SARAH THOMAS [facility] : 1930 Age/S: 88 / F [address] [place] [address] Unit #: [id number] Loc: [place] [address] Phys: Cordelia Villarreal DO Acct: [id number] Dis Date: Status: REG ER PHONE #: [phone] Exam Date: 10/07/20182213 FAX #: [phone] Reason: HEADACHE EXAMS: CPT CODE: [id number] CT HEAD/BRAIN W/O CONT [address] HEAD, UNENHANCED CT CERVICAL SPINE INDICATION: Headache and neck pain after fall TECHNIQUE: Unenhanced CT was performed from the skull vertex to the foramen magnum with axial, coronal and sagittal reconstructions. Radiation dose length product 420 mGy-cm. Unenhanced CT was performed of the cervical spine with axial, coronal and sagittal reconstructions. Radiation dose length product 322 mGy-cm. COMPARISONS: None. FINDINGS: CT HEAD: The paranasal sinuses are clear as visualized. The mastoid air cells and middle ears appear clear as visualized. There is no acute depressed skull fracture. There is a left parietal scalp soft tissue contusion. There is no retained radiodense foreign body. There is a moderate burden of atherosclerotic va scular calcification of the intracranial arteries. There is mild ventriculomegaly due to white matter volume loss. There is no hydrocephalus. There is moderate generalized brain parenchymal volume loss. There is a mild burden of presumed chronic small vessel ischemic hypodense lesions in the white matter. There is no cerebral mass effect, midline shift, intracranial hemorrhage or acute large vessel territory cerebral cortical edema. CT CERVICAL SPINE: There is an age-indeterminate deformity of the right humeral neck on the [place] ma[place] view. 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 There is no acute cervical spine fracture or dislocation. There are multilevel degenerative disc and spondylotic changes of the spine. There is mild spinal canal stenosis at C3-C4 and C6-C7. There is no prevertebral soft tissue swelling. PAGE 1 Signed Report (CONTINUED) Name: SARAH THOMAS [facility] : 1930 Age/S: 88 / F [address] [place] [address] Unit #: [id number] Loc: [place] [address] Phys: Cordelia Villarreal DO Acct: [id number] Dis Date: Status: REG ER PHONE #: [phone] Exam Date: 10/07/2018 2214 FAX #: [phone] Reason: HEADACHE EXAMS: CPT CODE: [id number] CT HEAD/BRAIN W/O CONT 82902 <Continued> There are incompletely imaged coronary vascular calcifications. There is mild atherosclerotic vascular calcification of the aorta. There is moderate atherosclerotic calcification of the carotid vasculature. There is no cervical lymphadenopathy, mass or organized fluid collection. The lung apices reveal no acute process. There are interstitial fibrotic changes in the upper lobes, left greater than right. There is mild bronchiectasis. There is a 3 mm noncalcified right upper lobe subpleural pulmonary nodule on axial image 61 of series 3. IMPRESSION: CT HEAD: 1. There is no acute intracranial process. 2. There is a left parietal scalp soft tissue contusion. There is no acute depressed skull fracture. CT CERVICAL SPINE: 1. There is an age-indeterminate deformity of the right humeral neck on the [place] ma[place] view. 2. There is no acute cervical spine fracture or dislocation. 3. There is a 3 mm noncalcified right upper lobe subpleural pulmonary nodule. If there are no risk factors for development of pulmonary malignancy, no follow-up would be recommended. If there are risk factors for development of malignancy, consider a 12 month follow-up CT of the chest to evaluate long-term stability. (Raquel et al., Fleischner Society, 2017). 4. There are additional nonacute findings that are described above. at 8732 Reported and signed by: Ludwin Rasmussen D.O. PAGE 2 Signed Report (CONTINUED) Name: WILLIAMLINDSEY BARROSOMARIO PALAFOX [facility] : 1930 Age/S: 88 / F [address] [place] [address] Unit #: [id number] Loc: [place] [address] Phys: Cordelia Villarreal DO Acct: [id number] Dis Date: Status: REG ER PHONE #: [phone] Exam Date: 10/07/20182213 FAX #: [phone] Reason: HEADACHE EXAMS: CPT CODE: [id number] CT HEAD/BRAIN W/O CONT 37662 <Continued> CC: Cordelia Villarreal DO; Georgiana Gamboa MD Technologist:Zahra Hernandez, RT(R) CTDI: DLP: Trnscb Date/Time: 10/07/2018 (2241) [email or web address] Orig Print D/T: S: 10/07/2018 (2245) PAGE 3 Signed Report RIBS UNILAT W/CXR 2018-05-17 13:23:00 [place] [address] Patient Name: SARAH THOMAS MR #: [id number] : 1930 Age/Sex: 87/F Req #: [id number] Adm Physician: Ordered by: GEORGIANA GAMBOA MD Report #: [id number] Location: [facility] Room/Bed: Procedure: [id number] DX/RIBS UNILAT W/CXR Exam Date: Exam Time: REPORT STATUS: Signed Radiographs of the ribs - 4 views HISTORY: Left rib pain. COMP ARISON: None available. FINDINGS: Bones: No acute displaced fracture. Osseous alignment is within normal limits. Joints: Scattered degenerative change. No osseous erosion. No rib abnormality is seen. Soft tissues: Chronic appearing changes in the lungs. IMPRESSION: Scattered degenerative change. No osseous erosion. No rib abnormality is seen. Signed by: Dr. Jordi Sheets M.D. on 05/17/2018 1:24 PM Dictated By: JORDI SHEETS MD, MD 1324 Transcribed By: MARIBELL on 05/17/18 1329 COPY TO: GEORGIANA GAMBOA MD
--- NOTE | 2019-01-22 10:48 | Diagnostic Imaging Report ---
EXAMINATION: PELVIS AP 1-2 VIEWS INDICATION: Trauma COMPARISON: None FINDINGS: There is diffuse osteopenia. No acute fracture or dislocation. Prominent degenerative changes of the lower lumbar spine. Moderate degenerative changes of both hip joints. Nonobstructive bowel gas pattern. No free air. Phleboliths in the pelvis. IMPRESSION: No acute osseous injury. Diffuse osteopenia and degenerative changes as above. Signed by: Rogelio Camacho MD on 01/22/2019 10:44 AM
[2019-01-22 10:59] VITALS: BP 106/53
--- NOTE | 2019-01-22 11:07 | NUR ---
report given to waqar contreras at [facility]
--- NOTE | 2019-01-22 11:08 | NUR ---
transport arranged with loan at [facility] 30-45 min at 1109
[2019-01-23] MEDS ORDERED: ATIVAN1 MG (00:27)
[2019-01-23] MEDS ORDERED: NEURONTIN400 MG (00:30)
[2019-01-23] MEDS ORDERED: MIRALAX17 GM (00:31)
[2019-01-23] MEDS ORDERED: PACERONE200 MG (00:33)
[2019-01-23] MEDS ORDERED: METOPROLOL TART25 MG PO (00:38)
== END 2019-01-22 12:01 ==
LOC: ER 09:34
DX: S30.0XXA Contusion of lower back and pelvis, initial encounter (principal); W17.89XA Other fall from one level to another, initial encounter; Y92.128 Other place in nursing home as the place of occurrence of the external cause; Z91.81 History of falling
CPT/HCPCS: 72170; 99283

== ENCOUNTER 2019-01-22 17:43 | Inpatient (IN) | payer MEDICARE ==
[~2019-01-22] VITALS: Ht 154.9 cm; Wt 51.7 kg
[~2019-01-22 17:43] MED LIST changes: +AMIODARONE HCL 100 ML IV ONE
--- OUTSIDE RECORDS SUMMARY | 2019-01-22 17:46 | XMS REPORT | Clinical Summary ---
Author Author Prashant [facility] Organization [facility] Address Unknown Phone Unavailable Care Team Providers Care Director Of Field Coordination Name Role Phone Aldo Gamboa MD PCP [...] Chronic diastolic congestive heart failure (HCC) 12/24/2018 [facility] General Internal Medicine - Encounter 01/02/2019 12/24/2018 [...] Description Date Type Specialty Vesna Vences MD [address] [facility] [address] [place], [place] [id number] 04/18/2019 Office Visit Neurology Health Maintenance Due [...] MMODE SPECTRAL 5:17 AM CDT COLOR DOPPLER ([id number]) POC GLUCOSE Routine 12/31/2018 9:13 PM CDT [...] MMODE SPECTRAL 11:25 AM CDT COLOR DOPPLER ([id number]) TROPONIN Timed 12/24/2018 9:00 AM CDT POTASSIUM [...] Routine 06/18/2018 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 XR THORACIC SPINE 3 VW Routine 04/16/2018 Stress fracture of 12:45 PM BRIDGE INSPECTOR thoracic vertebra with routine healing, subsequent encounter MRI LUMBAR SPINE WO STAT 03/27/2018 CONTRAST 10:18 AM BRIDGE INSPECTOR ESTIMATED GFR STAT 03/27/2018 9:25 AM BRIDGE INSPECTOR COMPREHENSIVE METABOLIC STAT 03/27/2018 PANEL 9:25 AM BRIDGE INSPECTOR HC COMPLETE BLD COUNT STAT 03/27/2018 W/AUTO DIFF 9:[address] PELVIS WO CONTRAST STAT 03/27/2018 2:[address] LUMBAR SPINE WO STAT 03/27/2018 CONTRAST 2:58 AM BRIDGE INSPECTOR after 01/21/2018 Results * POC glucose (01/02/2019 1:14 PM CDT) Only the most recent of 33 results within the time period is included. POC glucose 134 (H) 65 - 99 mg/dL [facility] Comment: [facility] Notified RN HOSPITAL Meter ID: [id number] Devulcanizer Loader: Fransisco Galeas Specimen Performing Organization Address City/State/Zipcode Phone Number [facility] DEPARTMENT OF [address] [phone] PATHOLOGY AND GENOMIC MEDICINE [place] [facility] [address] [place] [address] * Echocardiogram complete w contrast and 3D if needed (01/01/2019 5:17 AM CDT) Specimen Narrative Performed At [facility] Echocardiography Report [id number] [facility], [facility] 9, [address]Name:BRIDGET ISAAC.ID:[id number] .Date: 12/27/2018 Refer.MD:CRISTIANE CARROLL MD Exam Time: 9:45:00 AMStudy Type:Routine Echo Height:61.02in Weight:113.74lb BSA: 1.49 m2 DOBAge:1930,88Y Sex: FEMALEBP:121/56 HR:80 bpmSonogrphr: GALEN Reilly Pat. Stat.:Inpatient Room:[facility] Study Status:Final Echo Event ID:[id number] Order ID:[id number] Reason for Study:Atrial fibrillation History / Clinical:Atrial [...] TV abnormalities noted. MEASUREMENTS: 2D Parasternal [place] LVOT 1.8 cmLA Ds4.4 cm LVIDd5 cmIndex3.3 cm/m Ao Rtd 3.1 cm Index2.1 cm/m LVIDs3.8 cmLV Fafz718.3 g(87-129) LV%fs 23.4 % LVM Nrvrb395.5 g/m2 IVSd 1.3 cmRWT0.4 LVPWd1 cm LA Sng Plane LA Area 17.6 cm2(8.8-23.4) LA Vol46.4 ml Index31.1 ml/m LA LngAx 5.5 cm RA Sng Plane RA Area 18.7 cm2(8.3-19.5) RA Vol48.6 ml Index32.6 ml/m RA LngAx 6 cm Signed 12/27/2018 12:11 PM Krystina Ellis M.D. Procedure Note Interface, Radiology Results In - 12/27/2018 12:11 PM CDT Echocardiography Report [address] [place] [address] Pat.Name: BRIDGET ISAAC Pat.ID: [id number] .Date: 12/27/2018 Refer.MD: CRISTIANE CARROLL MD Exam Time: 9:45:00 AM Study Type:Routine Echo Height: 61.02in Weight: 113.74lb BSA: 1.49 m2 Age: 6 1930,88Y Sex: FEMALE BP: 121/56 HR: 80 bpm Sonogrphr: GALEN Reilly Pat. Stat.:Inpatient Room: [facility] Study Status:Final Echo Event ID:[id number] Order ID: [id number] Reason for Study:Atrial fibrillation History / Clinical:Atrial [...] TV abnormalities noted. MEASUREMENTS: 2D Paras[place] LVOT 1.8 cm LA Ds 4.4 cm [...] City/State/Zipcode Phone Number [facility] [address] [place] [address] * Manual differential (12/31/2018 5:45 AM CDT) Only the most recent of 3 results within the time period is included. Manual PERFORMED [place] differential [facility] Neutrophils 81.0 (H) 39.0 - 69.0 % [facility] Lymphocytes 10.0 (L) 25.0 - 45.0 % [facility] Monocytes 7.0 0.0 - 10.0 % [facility] Eosinophils 2.0 0.0 - 5.0 % [facility] Basophils 0.0 0.0 - 1.0 % [facility] Metamyelocytes 0 % [facility] Promyelocytes 0 % [facility] Platelet slide Jax adequate [place] review [facility] Enlarged Moderate (A) [facility] Specimen Performing Organization Address [facility] Phone Number [facility] DEPARTMENT OF [address] [place] [address] PATHOLOGY AND GENOMIC MEDICINE [address] * CBC with platelet and differential (12/31/2018 5:45 AM CDT) Only the most recent of 15 results within the time period is included. WBC 7.39 4.50 - 11.00 k/uL [facility] RBC 2.95 (L) 4.20 - 5.50 m/uL [facility] HGB 8.9 (L) 12.0 - 16.0 g/dL [facility] HCT 28.8 (L) 37.0 - 47.0 % [facility] MCV 97.6 82.0 - 100.0 fL [facility] MCH 30.2 27.0 - 34.0 pg [facility] MCHC 30.9 (L) 31.0 - 37.0 g/dL [facility] RDW - SD 48.5 37.0 - 55.0 fL [facility] MPV 11.0 8.8 - 13.2 fL [facility] Platelet count 377 150 - 400 k/uL [facility] Nucleated RBC 0.00 /100 WBC [facility] Neutrophils 81.0 (H) 39.0 - 69.0 % [facility] Lymphocytes 10.0 (L) 25.0 - 45.0 % [facility] Monocytes 7.0 0.0 - 10.0 % [facility] Eosinophils 2.0 0.0 - 5.0 % [facility] Basophils 0.0 0.0 - 1.0 % [facility] Specimen Blood Performing Organization Address City/State/Zipcode Phone Number [facility] [place] [address] PATHOLOGY AND [facility] MEDICINE [address] * B natriuretic peptide (12/31/2018 5:45 AM CDT) Only the most recent of 7 results within the time period is included. BNP 248 (H) 0 - 100 pg/mL [facility] Specimen Blood Performing Organization Address City/[facility] Phone Number [facility] [place] [address] PATHOLOGY AND [facility] MEDICINE [address] * Estimated GFR (12/31/2018 4:00 AM CDT) Only the most recent of 17 results within the time period is included. Estimated GFR 48 (A) mL/min/1.73 m2 [facility] Comment: [facility] rpretation G1 >=90 Normal or high G2 60-89Mildly decreased O2u68-43 Mildly to moderately decreased F7b84-90 Moderately to severely decreased G4 15-29Severely decreased G5 <15Kidney failure The eGFR was calculated using the Chronic Kidney Disease Epidemiology Collaboration (CKD-EPI) equation. Interpretation is based on recommendations of the National Kidney Foundation-Kidney Disease Outcomes Quality Initiative (NKF-KDOQI) published in 2014. Specimen Plasma specimen Performing Organization Address City/[facility] Phone Number [facility] [place] [address] PATHOLOGY AND [facility] MEDICINE [address] * Phosphorus level (12/31/2018 4:00 AM CDT) Only the most recent of 10 results within the time period is included. Phosphorus 3.8 2.4 - 4.5 mg/dL [facility] Specimen Plasma specimen Performing Organization Address City/[facility]/Zipcode Phone Number [facility] DEPARTMENT OF [address] [place] [address] PATHOLOGY AND [facility] MEDICINE [address] * Magnesium level (12/31/2018 4:00 AM CDT) Only the most recent of 11 results within the time period is included. Magnesium 2.4 1.6 - 2.4 mg/dL [facility] Specimen Plasma specimen Performing Organization Address City/[facility] Phone Number [facility] [place] [address] PATHOLOGY AND [facility] MEDICINE [address] * Basic metabolic panel (12/31/2018 4:00 AM CDT) Only the most recent of 10 results within the time period is included. Sodium 140 135 - 148 mEq/L [facility] Potassium 3.5 3.5 - 5.0 mEq/L [facility] Chloride 104 98 - 112 mEq/L [facility] CO2 25 24 - 31 mEq/L [facility] Anion gap 11@ANIO 7 - 15 mEq/L [facility] BUN 24 (H) 8 - 23 mg/dL [facility] Creatinine 1.04 (H) 0.50 - 0.90 mg/dL [facility] Glucose 86 65 - 99 mg/dL [facility] Calcium 8.2 (L) 8.8 - 10.2 mg/dL [facility] Specimen Plasma specimen Performing Organization Address [facility] Phone Number [facility] [place] [address] PATHOLOGY AND [facility] MEDICINE [address] * CT Head Wo Contrast (12/30/2018 [...] cells. IMPRESSION: No acute intracranial abnormality identified. [facility]-[id number] Procedure Note Hm Interface, Radiology Results Incoming [...] cells. IMPRESSION: No acute intracranial abnormality identified. [facility]-[id number] Performing Organization Address City/[facility]/[place] [address] * Potassium level (12/30/2018 1:00 PM CDT) Only the most recent of 4 results within the time period is included. Potassium 3.6 3.5 - 5.0 mEq/L [facility] Specimen Plasma specimen Performing Organization Address City/[facility]/Zipcode Phone Number [facility] DEPARTMENT OF [address] [place] [address] PATHOLOGY AND GENOMIC MEDICINE [address] * Ionized calcium (12/30/2018 1:00 PM CDT) Only the most recent of 2 results within the time period is included. pH 7.51 [facility] Ionized calcium 1.14 1.11 - 1.32 mmol/L [facility] Specimen Plasma specimen Performing Organization Address City/[facility] Phone Number [facility] DEPARTMENT [address] [address] PATHOLOGY AND GENOMIC MEDICINE [address] * XR Chest 1 Vw Portable [...] Mild degenerative changes in the bony structures. [facility]-[id number] Procedure Note Interface, Radiology Results Incoming - 12/30/2018 7:05 AM CDT EXAMINATION: XR CHEST 1 VW PORTABLE CLINICAL HISTORY: pulmonary edema COMPARISON: December 28 IMPRESSION: Pulmonary vascular congestion is decreased from prior The heart remains enlarged. Small bilateral pleural effusions are present and unchanged Mild degenerative changes in the bony structures. [facility]-[id number] Performing Organization Address [facility] [place] [address] * Partial thromboplastin time, activated (12/29/2018 1:40 PM CDT) Only the most recent of 4 results within the time period is included. Pathologist [facility] PTT 30.9 23.0 - 36.0 sec [place] Comment: [facility] PTT therapeutic range for HOSPITAL unfractionated heparin is 61.0-112.0 seconds which corresponds to Anti-Xa 0.3-0.7 U/ml. Specimen Blood Performing Organization Address [facility] Phone Number [facility] [place] [address] PATHOLOGY AND GENOMIC MEDICINE [address] * Anti Xa, unfractionated (12/28/2018 10:18 PM CDT) [facility] Anti Xa, <0.10 (L)Comment: Therapeutic 0.30 - 0.70 U/mL [place] unfractionated Range: 0.30 - 0.70 U/mL [facility] Specimen Blood Performing Organization Address City/[facility]/Zipcode Phone Number [facility] [place] [address] PATHOLOGY AND GENOMIC MEDICINE [address] * ECG 12 lead (12/28/2018 6:55 [...] MUSE EKG impression Atrial fibrillation with rapid [facility] MUSE ventricular response-Anterolateral infarct (cited on or before 27-DEC-2018)-Abnormal ECG-In automated comparison with ECG of 28-DEC-2018 18:54,-ST no longer depressed in Anterior leads- Specimen Narrative Performed At Performing Organization Address City/[facility] [place] [address] * Troponin (12/28/2018 6:42 PM CDT) Only the most recent of 10 results within the time period is included. [facility] Troponin 0.226 (H) 0.000 - 0.040 ng/mL [place] Comment: [facility] changed methodology effective: 09/04/2018 at 10:00 am The new method has a 99th percentile cutoff of 0.040 ng/mL Specimen Plasma specimen Performing Organization Address City/[facility] [place] [address] PATHOLOGY AND [facility] MEDICINE [address] * Beta hydroxybutyrate (12/28/2018 1:20 PM CDT) [facility] Beta 1.71 (H) 0.02 - 0.27 mmol/L [place] hydroxyl[facility]amos medical centeryrate [facility] Specimen Serum Performing Organization Address City/[facility] Phone Number [facility] [place] [address] PATHOLOGY [facility] MEDICINE [address] * Lactic acid level (12/28/2018 1:20 PM CDT) Only the most recent of 4 results within the time period is included. [facility] Lactic acid 1.8 0.5 - 2.2 mmol/L [facility] Specimen Blood Performing Organization Address City/State/Zipcode Phone Number [facility] [place] [address] PATH[address] * Total iron binding capacity (12/28/2018 2:50 AM CDT) [facility] Iron level 22 (L) 37 - 145 ug/dL [facility] Iron binding 125 (L) 200 - 400 ug/dL [facility] % Saturation 17.6 15.0 - 38.0 % [facility] Specimen Plasma specimen Performing Organization Address City/[facility] Phone Number [facility] [place] [address] PATHOLOGY [address] * Venous blood gas (12/28/2018 2:50 AM CDT) Only the most recent of 3 results within the time period is included. [facility] pH, venous 7.38 7.32 - 7.42 [facility] pCO2, venous 31 (L) 45 - 51 mmHg [facility] pO2, venous 40 25 - 40 mmHg [facility] Base excess, -6 (L) -2 - 2 meq/L [facility] O2 saturation, 69 40 - 70 % [facility] Bicarbonate, 18.3 (L) 21.0 - 28.0 mmol/L [facility] Specimen Blood Performing Organization Address City/[facility] Phone Number [facility] [place] [address] PATHOLOGY AND [facility] MEDICINE [address] * Folate RBC (group test) (12/28/2018 2:50 AM CDT) [facility] RBC folate 1,855 (H) 499 - 1,504 ng/mL [facility] Specimen Blood Performing Organization Address City/[facility]/Zipcode Phone Number [facility] [place] [address] PATHOLOGY AND [facility] MEDICINE [address] * Folate level (12/28/2018 2:50 AM CDT) Folate 18.3 4.8 - 24.2 ng/mL [facility] Specimen Serum Performing Organization Address City/State/Zipcode Phone Number [facility] DEPARTMENT OF [address] [place] [address] PATHOLOGY AND GENOMIC MEDICINE [place] [facility] [address] [place] [address] * Vitamin B12 level (12/28/2018 2:50 AM CDT) Vitamin B12 757 211 - 946 pg/mL [place] Comment: [facility] Significant overlap exists HOSPITAL between normal and deficiency states. However, most patients with deficiencies will have Serum B12 <200 pg/mL. Specimen Serum Performing Organization Address [facility]/Zipcode Phone Number [facility] DEPARTMENT OF [address] [place] [address] PATHOLOGY AND GENOMIC MEDICINE [place] MOR[place]IAN[address] * CT Soft Tissue Neck W [...] above centered in the left submandibular and forensic technician spaces, favored to represent the sequela of acute sialoadenitis. A drainable collection is not identified. No convincing sialolith, although there is mild prominence of the left mandibular duct. Malignancy is not excluded in the appropriate clinical setting. [facility]-[id number] Procedure Note Hm Interface, Radiology Results Incoming [...] above centered in the left submandibular and forensic technician spaces, favored to represent the sequela of acute sialoadenitis. A drainable collection is not identified. No convincing sialolith, although there is mild prominence of the left mandibular duct. Malignancy is not excluded in the appropriate clinical setting. [facility]-[id number] Performing Organization Address City/State/Zipcode Phone Number [facility] [address] [place] [address] * CT Maxillofacial W Contrast (12/27/2018 5:55 [...] above centered in the left submandibular and forensic technician spaces, favored to represent the sequela of acute sialoadenitis. A drainable collection is not identified. No convincing sialolith, although there is mild prominence of the left submandibular duct. Malignancy is not excluded in the appropriate clinical setting. [facility]-[id number] Procedure Note Interface, Radiology Results Incoming - [...] above centered in the left submandibular and forensic technician spaces, favored to represent the sequela of acute sialoadenitis. A drainable collection is not identified. No convincing sialolith, although there is mild prominence of the left submandibular duct. Malignancy is not excluded in the appropriate clinical setting. [facility]-[id number] Performing Organization Address City/State/Zipcode Phone Number [facility] [address] [place] [address] * Respiratory pathogen panel (12/27/2018 12:31 PM CDT) Only the most recent of 2 results within the time period is included. Pathologist [facility] Respiratory Negative for all pathogens [place] pathogen panel tested: [facility] Negative for Adenovirus [facility] Negative for Coronavirus HKU1 Negative for [...] specified Performing Organization Address City/State/Zipcode Phone Number [facility] DEPARTMENT OF [address] [place] [address] PATHOLOGY AND GENOMIC MEDICINE [place] [facility] [address] [place] [address] HOSPITAL * Prothrombin time with INR (12/27/2018 9:40 AM CDT) Only the most recent of 2 results within the time period is included. Prothrombin 17.5 (H) 11.5 - 14.5 sec [facility] INR 1.5 [place] Comment: [facility] International Normalized HOSPITAL Ratio (INR) is a therapeutic monitoring tool for patients who are stable on oral anticoagulant therapy. An INR of 2.0-3.0 is suggested for deep vein thrombosis/pulmonary embolism. Specimen Blood Performing Organization Address City/State/Zipcode Phone Number [facility] DEPARTMENT OF [address] [place] [address] PATHOLOGY AND GENOMIC MEDICINE [facility] [address] [place] [address] * Comprehensive metabolic panel (12/27/2018 9:40 AM CDT) Only the most recent of 7 results within the time period is included. Pathologist [facility] Sodium 139 135 - 148 mEq/L [facility] Potassium 3.5 3.5 - 5.0 mEq/L [facility] Chloride 107 98 - 112 mEq/L [facility] CO2 19 (L) 24 - 31 mEq/L [facility] Anion gap 13@ANIO 7 - 15 mEq/L [facility] BUN 16 8 - 23 mg/dL [facility] Creatinine 0.84 0.50 - 0.90 mg/dL [facility] Glucose 121 (H) 65 - 99 mg/dL [facility] Calcium 8.7 (L) 8.8 - 10.2 mg/dL [facility] Protein 6.0 (L) 6.3 - 8.3 g/dL [place] Comment: [facility] [place] 4.6-7.0 g/dL 1 week 4.4-7.6 g/dL 7 months-1year 5.1-7.3 g/dL 1-2 years5.6-7 .5 g/dL >3 years6.0-8 .0 g/dL 18-150 6.3-8.3 g/dL Albumin 2.0 (L) 3.5 - 5.0 g/dL [facility] A/G ratio 0.5 (L) 0.7 - 3.8 [facility] Alkaline 74 35 - 104 U/L [facility] phosphatase [facility] AST 28 10 - 35 U/L [facility] ALT 13 5 - 50 U/L [facility] Total bilirubin 0.5 0.0 - 1.2 mg/dL [facility] Specimen Plasma specimen Performing Organization Address City/[facility] Phone Number [facility] [place] [address] PATHOLOGY AND GENOMIC MEDICINE [address] * Gram stain (12/27/2018 9:02 AM CDT) Only the most recent of 3 results within the time period is included. Gram stain No WBC's or organisms seen. [place] result Comment: [facility] Specimen Information [facility] Specimen Source: Urine Specimen Site: Catheterized Specimen Urine - Catheterized Performing Organization Address [facility] Phone Number [facility] [place] [address] PATHOLOGY AND GENOMIC MEDICINE [address] * Urine culture (12/27/2018 9:02 AM CDT) Only the most recent of 3 results within the time period is included. Urine culture No growth after 24 hours [facility] isolate Comment: [facility] Specimen Information [facility] Specimen Source: Urine Specimen Site: Catheterized Specimen Urine - Catheterized Performing Organization Address City/[facility] Phone Number [facility] DEPARTMENT OF [address] [place] [address] PATHOLOGY AND GENOMIC MEDICINE [address] * Blood culture, aerobic & anaerobic (12/27/2018 7:45 AM CDT) Only the most recent of 6 results within the time period is included. Blood culture No growth after 5 days of [facility] isolate incubation. [facility] Comment: HOSPITAL Specimen Information Specimen Source: Blood Specimen Site: Right Specimen Blood - Right Performing Organization Address City/[facility] Phone Number [facility] DEPARTMENT OF [address] [place] [address] PATHOLOGY AND GENOMIC MEDICINE [address] * Urinalysis screen and microscopy, with reflex to culture (12/27/2018 7:35 AM CDT) Only the most recent of 3 results within the time period is included. Specimen site Catheterized [facility] Color, UA Yellow [facility] Appearance, UA Clear [facility] Specific 1.018 1.001 - 1.035 [place] gravity, [facility] pH, UA 6.0 5.0 - 8.5 [facility] Protein, UA 1+ (A) Negative [facility] Glucose, UA Negative Negative [facility] Ketones, UA Trace (A) Negative [facility] Bilirubin, UA Negative Negative [facility] Blood, UA Small (A) Negative [facility] Nitrite, UA Negative Negative [facility] Urobilinogen, <2.[address] [facility] Leukocyte Negative Negative [facility] Epithelial <1 /HPF [facility] cellsNOR[facility]EN[facility]AL BAPT[facility] [facility] WBC, UA 21 (H) 0 - 4 /HPF [facility] RBC, UA 2 0 - 5 /HPF [facility] Bacteria, UA None seen None seen [facility] Yeast, UA None seen [facility] Yeast with None seen [facility] Hyaline casts, >20 (A) /LPF [facility] Specimen Urine Performing Organization Address City/[facility] Phone Number [facility] [place] [address] PATHOLOGY AND [facility] MEDICINE [address] * Lactic acid level, SEPSIS - Now and repeat 2x every 3 hours (12/27/2018 6:30 AM CDT) Lactic acid 1.3 0.5 - 2.2 mmol/L [facility] Specimen Blood Performing Organization Address City/[facility] Phone Number [facility] [place] [address] PATHOLOGY AND GENOMIC MEDICINE [address] * Thyroid stimulating hormone (12/27/2018 6:30 AM CDT) Only the most recent of 2 results within the time period is included. TSH 1.25 0.27 - 4.20 uIU/mL [facility] Specimen Plasma specimen Performing Organization Address [facility] Phone Number [facility] [place] [address] PATHOLOGY AND GENOMIC MEDICINE [address] * Hepatic function panel (12/27/2018 6:30 AM CDT) Only the most recent of 2 results within the time period is included. Albumin 2.1 (L) 3.5 - 5.0 g/dL [facility] Total bilirubin 0.7 0.0 - 1.2 mg/dL [facility] Bilirubin <0.2 0.0 - 0.3 mg/dL [place] direct [facility] Alkaline 75 35 - 104 U/L [place] phosphatase [facility] Protein 6.0 (L) 6.3 - 8.3 g/dL [place] Comment: [facility] [place] 4.6-7.0 g/dL 1 week 4.4-7.6 g/dL 7 months-1year 5.1-7.3 g/dL 1-2 years5.6-7 .5 g/dL >3 years6.0-8 .0 g/dL 18-150 6.3-8.3 g/dL ALT 11 5 - 50 U/L [facility] AST 34 10 - 35 U/L [facility] Specimen Plasma specimen Performing Organization Address City[facility] Phone Number [facility] DEPARTMENT OF [address] [place] [address] PATHOLOGY AND [facility] MEDICINE [address] * Arterial blood gas (12/27/2018 6:14 AM CDT) Pathologist [facility] pH, arterial 7.45 7.35 - 7.45 [facility] pCO2, arterial 29 (L) 35 - 45 mmHg [facility] pO2, arterial 87 80 - 90 mmHg [facility] Bicarbonate, 19.6 (L) 21.0 - 28.0 mmol/L [facility] Base excess, -3 (L) -2 - 2 mEq/L [facility] O2 saturation, 98 95 - 100 % [facility] Specimen Blood Performing Organization Address City/[facility] Phone Number [facility] [place] [address] PATHOLOGY AND [facility] MEDICINE [address] * Echocardiogram complete w contrast and 3D if needed (12/24/2018 11:25 AM CDT) Specimen Narrative Performed At [facility] Echocardiography Report [id number] [facility] [address], [place] [address] Pat.Name:BRIDGET ISAAC [facility].ID:[id number] .Date: 12/24/2018 Refer.MD:MIKE SHELTON MD Exam Time: 10:53:00 AM Study Type:Routine Echo Height:61inWeight:114lb BSA: 1.49 m2 DOBAge:1930,88Y Sex: FEMALEBP:145/63 HR:70 bpmSonogrphr: GALEN Duarte Pat. Stat.:Inpatient Room:[facility] Study Status:Final Echo Event ID:[id number] Order ID:[id number] Reason for Study:General weakness, Elevated BNP History [...] RAPof 5 mmHg. MEASUREMENTS: 2D Parasternal [place] LVOT 1.7 cmLA Ds4.1 cm LVIDd4.9 cmIndex3.3 cm/m Ao Rtd 2.7 cm Index1.8 cm/m LVIDs3.4 cmLV Kqeo900.2 g(87-129) LV%fs 30.6 % LVM Index 88.1 g/m2 IVSd 0.8 cmRWT0.3 LVPWd0.8 cm LA Sng Plane LA Area 23.2 cm2(8.8-23.4) LA Vol68.1 ml Index45.7 ml/m LA LngAx 6.6 cm RA Sng Plane RA Area 12.5 cm2(8.3-19.5) RA Vol24.6 ml Index16.5 ml/m RA LngAx 5.3 cm DOPPLER LVOT For Flow LVOT Area2.3 cm2 LVOT SV 49.2 ml DORVqpTsn309.1 cm/sHR74.4 bpm LVOTpkPG 4.9 mmHgLVOT CO3.7 l/min LVOTmnPG 2.5 mmHgLVOT CI2.5 l/m/m2 LVOT TVI21.7 cm Signed 12/24/2018 05:04 PM Shady Torres M.D. Procedure Note Interface, Radiology Results In - 12/24/2018 5:05 PM CDT Echocardiography Report [id number] [address] [facility].Name: BRIDGET ISAAC Franca.ID: [id number] .Date: 12/24/2018 Refer.MD: MIKE SHELTON MD Exam Time: 10:53:00 AM Study Type:Routine Echo Height: 61in Weight: 114lb BSA: 1.49 m2 Age: 6 1930,88Y Sex: FEMALE BP: 145/63 HR: 70 bpm Sonogrphr: GALEN Duarte Pat. Stat.:Inpatient Room: [facility] Study Status:Final Echo Event ID:[id number] Order ID: [id number] Reason for Study:General weakness, Elevated BNP History [...] of 5 mmHg. MEASUREMENTS: 2D Parasternal [place] LVOT 1.7 cm LA Ds 4.1 cm [...] PM Shady Torres M.D. Performing Organization Address [facility]/Zipcode Phone Number [facility] [address] [place] [address] * AST (SGOT) (12/24/2018 1:32 AM CDT) AST 15 10 - 35 U/L [facility] Specimen Plasma specimen Narrative Performed At results called to and read back by JULIO VELÁSQUEZ/LEELA [facility] DEPARTMENT OF at12/24/201802:29by KXG. PATHOLOGY AND GENOMIC MEDICINE Performing Organization Address [facility]/Zipcode Phone Number [facility] DEPARTMENT OF [address] [place] [address] PATHOLOGY AND GENOMIC MEDICINE [address] * ECG ED Preliminary Interpretation - Not an Order (12/24/2018 12:56 AM CDT) Narrative Performed At Bob Bernardo DO 12/24/20187:50 PM ECG ED Preliminary Interpretation - Not an Order Performed by: Bob Bernardo DO Authorized by: Bob Bernardo DO ECG reviewed by ED Physician in the absence of a ase certified technician: yes Interpretation: Interpretation: abnormal Rate: ECG rate:76 [...] acute osseous abnormality of the right forearm. [facility]-[id number] Procedure Note Interface, Radiology Results Incoming - [...] acute osseous abnormality of the right forearm. [facility]-[id number] Performing Organization Address City/[facility]/Zipcode Phone Number [facility] [address] [place] [address] * Creatine kinase, total (CPK) (11/18/2018 8:04 PM CDT) Creatine kinase 38 26 - 192 U/L [facility] Specimen Plasma specimen Performing Organization Address City/[facility]/Zipcode Phone Number [facility] DEPARTMENT OF [address] [place] [address] PATHOLOGY AND GENOMIC MEDICINE [address] [address] [facility] * MRI Brain Wo Contrast (10/23/2018 [...] regional hypoperfusion to suggest specific neurodegenerative disease. [id number] Dictated and approved by residential sales associate/fellow: Whti Villar M.D. I, Alfredo Cheek MD, personally [...] regional hypoperfusion to suggest specific neurodegenerative disease. [id number] Dictated and approved by residential sales associate/fellow: Whit Villar M.D. I, Alfredo Cheek MD, personally reviewed the images and resident's/fellow's findings and agree with the final report. Performing Organization Address City/State/Zipcode Phone Number [facility] [address] [place] [address] * XR Thoracic Spine 3 Vw (06/18/2018 12:14 PM BRIDGE INSPECTOR) Only the most recent of 2 results [...] mineral density does not appear significantly changed. [facility]-[id number] Procedure Note Hm Interface, Radiology Results Incoming - 06/18/2018 2:56 PM BRIDGE INSPECTOR EXAMINATION: XR THORACIC SPINE 3 VW CLINICAL [...] mineral density does not appear significantly changed. [facility]-[id number] Performing Organization Address City/State/Zipcode Phone Number [facility] [address] [place] [address] * MRI Lumbar Spine Wo Contrast (03/27/2018 10:18 AM BRIDGE INSPECTOR) Specimen Narrative Performed At [facility] EXAMINATION: MRI [...] height is grossly maintained, attention on follow-up. [id number] Procedure Note Hm Interface, Radiology Results Incoming - 03/27/2018 10:56 AM BRIDGE INSPECTOR EXAMINATION: MRI LUMBAR SPINE WO CONTRAST CLINICAL [...] height is grossly maintained, attention on follow-up. [id number] Performing Organization Address City/State/Zipcode Phone Number [facility] [address] [place] [address] * CT Pelvis Wo Contrast (03/27/2018 2:59 AM BRIDGE INSPECTOR) Specimen Narrative Performed At EXAMINATION:CT PELVIS WO [...] diverticulosis. See also concurrent CT lumbar spine. [facility]-[id number] Procedure Note Interface, Radiology Results Incoming - 03/27/2018 3:07 AM BRIDGE INSPECTOR EXAMINATION: CT PELVIS WO CONTRAST CLINICAL HISTORY: [...] diverticulosis. See also concurrent CT lumbar spine. [facility]-[id number] Performing Organization Address City/State/Zipcode Phone Number [facility] [address] [place] [address] * CT Lumbar Spine Wo Contrast (03/27/2018 2:58 AM BRIDGE INSPECTOR) Specimen Narrative Performed At EXAMINATION: CT LUMBAR [...] narrowing of spinal canal at L2-L3 and znvd-ta-mepnykzj narrowing of spinal canal at L3-L4. Moderate [...] of superior endplate of T12 is identified. Bckz-pl-bbjqoxkl degenerative change of the lumbar spine. Areas of spinal canal and neural foraminal stenosis are seen as detailed above. Punctate nonobstructive calculus of the left renal collecting system. [facility]-[id number] Procedure Note Interface, Radiology Results Incoming - 03/27/2018 3:13 AM BRIDGE INSPECTOR EXAMINATION: CT LUMBAR SPINE WO CONTRAST CLINICAL [...] narrowing of spinal canal at L2-L3 and nciq-od-medxqcji narrowing of spinal canal at L3-L4. Moderate [...] of superior endplate of T12 is identified. Yzib-ml-cnuolgff degenerative change of the lumbar spine. Areas of spinal canal and neural foraminal stenosis are seen as detailed above. Punctate nonobstructive calculus of the left renal collecting system. 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
--- NOTE | 2019-01-22 18:02 | NUR ---
DR. GODWIN AT BEDSIDE AT THIS TIME FOR PT EVAL.
[2019-01-22] MEDS ORDERED: IPRATROPIUM BROMIDE 0.02% 2.5 ML NEB NEB STA (18:10)
[2019-01-22] MEDS ORDERED: ALBUTEROL SULF 0.083% NEB SOLN 3 ML NEB NEB STA (18:10)
[2019-01-22] MEDS ORDERED: METHYLPREDNISOLONE SOD SUCC 125 MG/2ML VIAL IV ONE (18:15)
--- NOTE | 2019-01-22 18:18 | NUR ---
RADIOLOGY AT BEDSIDE FOR CXR AT THIS TIME.
--- NOTE | 2019-01-22 18:25 | NUR ---
RESPIRATORY AT BEDSIDE PLACING PT ON BIPAP AND OBTAINING ABG AT THIS TIME.
[2019-01-22 18:28] LABS: BASOPHILS # (AUTO) 0.1 (0.0-0.1); BASOPHILS % 0.5 % (0.0-1.0); EOSINOPHILS # (AUTO) 0.3 (0.0-0.4); EOSINOPHILS % 2.8 % (0.0-6.0); HEMATOCRIT 28.6 % (34.2-44.1); HEMOGLOBIN 9.2 g/dL (12.0-16.0); LYMPHOCYTES # (AUTO) 1.2 (1.0-3.2); LYMPHOCYTES % 11.9 % (18.0-39.1); MEAN CORPUSCULAR HEMOGLOBIN 29.8 pg (28-32); MEAN CORPUSCULAR HGB CONC 32.2 g/dL (31-35); MEAN CORPUSCULAR VOLUME 92.6 fL (81-99); MONOCYTES # (AUTO) 0.9 (0.2-0.8); MONOCYTES % 8.7 % (4.4-11.3); NEUTROPHILS # (AUTO) 7.4 (2.1-6.9); NEUTROPHILS % 75.1 % (38.7-80.0); PLATELET COUNT 411 x10e3/uL (140-360); RED BLOOD COUNT 3.09 x10e6/uL (3.6-5.1); RED CELL DISTRIBUTION WIDTH 14.7 % (11.7-14.4)
--- NOTE | 2019-01-22 18:33 | Diagnostic Imaging Report ---
A single frontal view of the chest. HISTORY: Shortness of breath, respiratory distress COMPARISON: Frontal view of the chest from May 17, 2018 DISCUSSION: Portable technique, limits sensitivity of the exam. Multiple overlying artifacts. Soft tissue attenuation partially limits sensitivity of the exam. Tubes/Lines: None Lungs and pleura: Marked diffuse bilateral increased interstitial and airspace opacities. No definite pleural effusion or pneumothorax is identified. Heart and mediastinum: The cardiomediastinal silhouette appear(s) is not well seen due to the extensive pulmonary opacities. Bones and soft tissues: Chronic appearing deformity of the proximal right humerus, likely a healed fracture deformity. IMPRESSION: Marked diffuse bilateral pulmonary opacities, correlate for volume overload as this may reflect severe pulmonary edema. In the absence of volume overload, consider multifocal pneumonia, aspiration, and/or pulmonary hemorrhage in the appropriate setting. Signed by: Dr. Doug Gore D.O., M.M.M. on 01/22/2019 6:29 PM
[2019-01-22] MEDS ORDERED: VANCOMYCIN 1GM/NS 250 ML 250 ML IV STA (18:37)
[2019-01-22] MEDS ORDERED: FUROSEMIDE INJ 10 MG/ML 4 ML VIAL IV ONE (18:45)
[2019-01-22] MEDS ORDERED: CEFEPIME HCL 1 GM VIAL IV SCH (18:45)
[2019-01-22 18:46] LABS: ALBUMIN 2.2 g/dL (3.5-5.0); ALBUMIN/GLOBULIN RATIO 0.6 (0.8-2.0); ANION GAP 13.3 mmol/L (8-16); CALCIUM 8.9 mg/dL (8.4-10.2); CREATININE, SERUM 1.07 mg/dL (0.57-1.11); POTASSIUM 3.3 mmol/L (3.5-5.1)
--- OUTSIDE RECORDS SUMMARY | 2019-01-22 18:50 | XMS REPORT | Clinical Summary ---
Author Author Prashant [facility] Organization [facility] Address Unknown Phone Unavailable Care Team Providers Care Ultrasonic Tester Name Role Phone Aldo Gamboa MD PCP [...] Chronic diastolic congestive heart failure (HCC) 12/24/2018 [facility] General Internal Medicine - Encounter 01/02/2019 [...] Description Date Type Specialty Vesna Vences MD [address] [facility] [address] [place], [place] [id number] 04/18/2019 Office Visit Neurology Health Maintenance Due [...] MMODE SPECTRAL 5:17 AM CDT COLOR DOPPLER ([id number]) POC GLUCOSE Routine 12/31/2018 9:13 PM CDT [...] MMODE SPECTRAL 11:25 AM CDT COLOR DOPPLER ([id number]) TROPONIN Timed 12/24/2018 9:00 AM CDT POTASSIUM [...] Routine 06/18/2018 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 vertebra with 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 healing XR THORACIC SPINE 3 VW Routine 04/16/2018 Stress fracture of 12:45 PM PRISON TEACHER thoracic vertebra with routine healing, subsequent encounter MRI LUMBAR SPINE WO STAT 03/27/2018 CONTRAST 10:18 AM PRISON TEACHER ESTIMATED GFR STAT 03/27/2018 9:25 AM PRISON TEACHER COMPREHENSIVE METABOLIC STAT 03/27/2018 PANEL 9:25 AM PRISON TEACHER HC COMPLETE BLD COUNT STAT 03/27/2018 W/AUTO DIFF 9:[address] PELVIS WO CONTRAST STAT 03/27/2018 2:[address] LUMBAR SPINE WO STAT 03/27/2018 CONTRAST 2:58 AM PRISON TEACHER after 01/21/2018 Results * POC glucose (01/02/2019 1:14 PM CDT) Only the most recent of 33 results within the time period is included. POC glucose 134 (H) 65 - 99 mg/dL [place] Comment: [facility] Notified RN HOSPITAL Meter ID: [id number] Brand Marketing Specialist: Fransisco Galeas Specimen Performing Organization Address City/State/Zipcode Phone Number [facility] DEPARTMENT OF [address] [id number] PATHOLOGY AND GENOMIC MEDICINE [place] [facility] [address] [place] [address] * Echocardiogram complete w contrast and 3D if needed (01/01/2019 5:17 AM CDT) Specimen Narrative Performed At [facility] Echocardiography Report [id number] [facility], [facility] 9, [address]Name:BRIDGET ISAAC.ID:[id number] .Date: 12/27/2018 Refer.MD:CRISTIANE CARROLL MD Exam Time: 9:45:00 AMStudy Type:Routine Echo Height:61.02in Weight:113.74lb BSA: 1.49 m2 DOBAge:1930,88Y Sex: FEMALEBP:121/56 HR:80 bpmSonogrphr: GALEN Reilly Pat. Stat.:Inpatient Room:[facility] Study Status:Final Echo Event ID:[id number] Order ID:[id number] Reason for Study:Atrial fibrillation History / Clinical:Atrial [...] TV abnormalities noted. MEASUREMENTS: 2D Parasternal Long [place] LVOT 1.8 cmLA Ds4.4 cm LVIDd5 cmIndex3.3 cm/m Ao Rtd 3.1 cm Index2.1 cm/m LVIDs3.8 cmLV Zaum014.3 g(87-129) LV%fs 23.4 % LVM Gjdmv124.5 g/m2 IVSd 1.3 cmRWT0.4 LVPWd1 cm LA Sng Plane LA Area 17.6 cm2(8.8-23.4) LA Vol46.4 ml Index31.1 ml/m LA LngAx 5.5 cm RA Sng Plane RA Area 18.7 cm2(8.3-19.5) RA Vol48.6 ml Index32.6 ml/m RA LngAx 6 cm Signed 12/27/2018 12:11 PM Krystina Ellis M.D. Procedure Note Interface, Radiology Results In - 12/27/2018 12:11 PM CDT Echocardiography Report [address] [place] [address] Pat.Name: BRIDGET ISAAC Pat.ID: [id number] .Date: 12/27/2018 Refer.MD: CRISTIANE CARROLL MD Exam Time: 9:45:00 AM Study Type:Routine Echo Height: 61.02in Weight: 113.74lb BSA: 1.49 m2 Age: 6 1930,88Y Sex: FEMALE BP: 121/56 HR: 80 bpm Sonogrphr: GALEN Reilly Pat. Stat.:Inpatient Room: [facility] Study Status:Final Echo Event ID:[id number] Order ID: [id number] Reason for Study:Atrial fibrillation History / Clinical:Atrial [...] TV abnormalities noted. MEASUREMENTS: 2D Parasternal Long [place] LVOT 1.8 cm LA Ds 4.4 cm [...] M.D. Performing Organization Address City/State/Zipcode Phone Number [facility] [address] [place] [address] * Manual differential (12/31/2018 5:45 AM CDT) Only the most recent of 3 results within the time period is included. Manual PERFORMED [place] differential [facility] Neutrophils 81.0 (H) 39.0 - 69.0 % [facility] Lymphocytes 10.0 (L) 25.0 - 45.0 % [facility] Monocytes 7.0 0.0 - 10.0 % [facility] Eosinophils 2.0 0.0 - 5.0 % [facility] Basophils 0.0 0.0 - 1.0 % [facility] Metamyelocytes 0 % [facility] Promyelocytes 0 % [facility] Platelet slide Jax adequate [place] review [facility] Enlarged Moderate (A) [facility] Specimen Performing Organization Address [facility] Cent[facility]ode Phone Number [facility] DEPARTMENT OF [address] [place] [address] PATHOLOGY AND GENOMIC MEDICINE [address] * CBC with platelet and differential (12/31/2018 5:45 AM CDT) Only the most recent of 15 results within the time period is included. WBC 7.39 4.50 - 11.00 k/uL [facility] RBC 2.95 (L) 4.20 - 5.50 m/uL [facility] HGB 8.9 (L) 12.0 - 16.0 g/dL [facility] HCT 28.8 (L) 37.0 - 47.0 % [facility] MCV 97.6 82.0 - 100.0 fL [facility] MCH 30.2 27.0 - 34.0 pg [facility] MCHC 30.9 (L) 31.0 - 37.0 g/dL [facility] RDW - SD 48.5 37.0 - 55.0 fL [facility] MPV 11.0 8.8 - 13.2 fL [facility] Platelet count 377 150 - 400 k/uL [facility] Nucleated RBC 0.00 /100 WBC [facility] Neutrophils 81.0 (H) 39.0 - 69.0 % [facility] Lymphocytes 10.0 (L) 25.0 - 45.0 % [facility] Monocytes 7.0 0.0 - 10.0 % [facility] Eosinophils 2.0 0.0 - 5.0 % [facility] Basophils 0.0 0.0 - 1.0 % [facility] Specimen Blood Performing Organization Address City/State/Zipcode Phone Number [facility] [place] [address] PATHOLOGY AND [facility] MEDICINE [address] * B natriuretic peptide (12/31/2018 5:45 AM CDT) Only the most recent of 7 results within the time period is included. BNP 248 (H) 0 - 100 pg/mL [facility] Specimen Blood Performing Organization Address City/[facility] Phone Number [facility] [place] [address] PATHOLOGY AND [facility] MEDICINE [address] * Estimated GFR (12/31/2018 4:00 AM CDT) Only the most recent of 17 results within the time period is included. Estimated GFR 48 (A) mL/min/1.73 m2 [place] Comment: [facility] rpretation G1 >=90 Normal or high G2 60-89Mildly decreased [id number] Mildly to moderately decreased [id number] Moderately to severely decreased G4 15-29Severely decreased G5 <15Kidney failure The eGFR was calculated using the Chronic Kidney Disease Epidemiology Collaboration (CKD-EPI) equation. Interpretation is based on recommendations of the National Kidney Foundation-Kidney Disease Outcomes Quality Initiative (NKF-KDOQI) published in 2014. Specimen Plasma specimen Performing Organization Address City/[facility] Centercode Phone Number [facility] [place] [address] PATHOLOGY AND [facility] MEDICINE [address] * Phosphorus level (12/31/2018 4:00 AM CDT) Only the most recent of 10 results within the time period is included. Phosphorus 3.8 2.4 - 4.5 mg/dL [facility] Specimen Plasma specimen Performing Organization Address City/[facility]/Zipcode Phone Number [facility] DEPARTMENT OF [address] [place] [address] PATHOLOGY AND [facility] MEDICINE [address] * Magnesium level (12/31/2018 4:00 AM CDT) Only the most recent of 11 results within the time period is included. Magnesium 2.4 1.6 - 2.4 mg/dL [facility] Specimen Plasma specimen Performing Organization Address City/[facility] Centercode Phone Number [facility] [place] [address] PATHOLOGY AND [facility] MEDICINE [address] * Basic metabolic panel (12/31/2018 4:00 AM CDT) Only the most recent of 10 results within the time period is included. Sodium 140 135 - 148 mEq/L [facility] Potassium 3.5 3.5 - 5.0 mEq/L [facility] Chloride 104 98 - 112 mEq/L [facility] CO2 25 24 - 31 mEq/L [facility] Anion gap 11@ANIO 7 - 15 mEq/L [facility] BUN 24 (H) 8 - 23 mg/dL [facility] Creatinine 1.04 (H) 0.50 - 0.90 mg/dL [facility] Glucose 86 65 - 99 mg/dL [facility] Calcium 8.2 (L) 8.8 - 10.2 mg/dL [facility] Specimen Plasma specimen Performing Organization Address [facility] Phone Number [facility] [place] [address] PATHOLOGY AND [facility] MEDICINE [address] * CT Head Wo Contrast (12/30/2018 [...] cells. IMPRESSION: No acute intracranial abnormality identified. [facility]-[id number] Procedure Note Hm Interface, Radiology Results Incoming [...] cells. IMPRESSION: No acute intracranial abnormality identified. [facility]-[id number] Performing Organization Address City/[facility]/[place] [address] * Potassium level (12/30/2018 1:00 PM CDT) Only the most recent of 4 results within the time period is included. Potassium 3.6 3.5 - 5.0 mEq/L [facility] Specimen Plasma specimen Performing Organization Address City/[facility]/Zipcode Phone Number [facility] DEPARTMENT OF [address] [place] [address] PATHOLOGY AND GENOMIC MEDICINE [address] * Ionized calcium (12/30/2018 1:00 PM CDT) Only the most recent of 2 results within the time period is included. pH 7.51 [facility] Ionized calcium 1.14 1.11 - 1.32 mmol/L [facility] Specimen Plasma specimen Performing Organization Address City/[facility] Centercode Phone Number [facility] DEPARTMENT [address] [address] PATHOLOGY AND GENOMIC MEDICINE [address] * XR Chest 1 Vw Portable [...] Mild degenerative changes in the bony structures. [facility]-[id number] Procedure Note Interface, Radiology Results Incoming - 12/30/2018 7:05 AM CDT EXAMINATION: XR CHEST 1 VW PORTABLE CLINICAL HISTORY: pulmonary edema COMPARISON: December 28 IMPRESSION: Pulmonary vascular congestion is decreased from prior The heart remains enlarged. Small bilateral pleural effusions are present and unchanged Mild degenerative changes in the bony structures. [facility]-[id number] Performing Organization Address [facility] [place] [address] * Partial thromboplastin time, activated (12/29/2018 1:40 PM CDT) Only the most recent of 4 results within the time period is included. Pathologist [facility] PTT 30.9 23.0 - 36.0 sec [place] Comment: [facility] PTT therapeutic range for HOSPITAL unfractionated heparin is 61.0-112.0 seconds which corresponds to Anti-Xa 0.3-0.7 U/ml. Specimen Blood Performing Organization Address [facility] Centercode Phone Number [facility] [place] [address] PATHOLOGY AND GENOMIC MEDICINE [address] * Anti Xa, unfractionated (12/28/2018 10:18 PM CDT) [facility] Anti Xa, <0.10 (L)Comment: Therapeutic 0.30 - 0.70 U/mL [place] unfractionated Range: 0.30 - 0.70 U/mL [facility] Specimen Blood Performing Organization Address City/[facility]/Zipcode Phone Number [facility] [place] [address] PATHOLOGY AND GENOMIC MEDICINE [address] * ECG 12 lead (12/28/2018 6:55 [...] MUSE EKG impression Atrial fibrillation with rapid [facility] MUSE ventricular response-Anterolateral infarct (cited on or before 27-DEC-2018)-Abnormal ECG-In automated comparison with ECG of 28-DEC-2018 18:54,-ST no longer depressed in Anterior leads- Specimen Narrative Performed At Performing Organization Address City/[facility] [place] [address] * Troponin (12/28/2018 6:42 PM CDT) Only the most recent of 10 results within the time period is included. [facility] Troponin 0.226 (H) 0.000 - 0.040 ng/mL [place] Comment: [facility] changed methodology effective: 09/04/2018 at 10:00 am The new method has a 99th percentile cutoff of 0.040 ng/mL Specimen Plasma specimen Performing Organization Address City/[facility] Centercode [place] [address] PATHOLOGY AND [facility] MEDICINE [address] * Beta hydroxybutyrate (12/28/2018 1:20 PM CDT) [facility] Beta 1.71 (H) 0.02 - 0.27 mmol/L [place] hydroxypresbyterian hospitalyrate [facility] Specimen Serum Performing Organization Address City/[facility] Centercode Phone Number [facility] [place] [address] PATHOLOGY [facility] MEDICINE [address] * Lactic acid level (12/28/2018 1:20 PM CDT) Only the most recent of 4 results within the time period is included. [facility] Lactic acid 1.8 0.5 - 2.2 mmol/L [facility] Specimen Blood Performing Organization Address City/State/Zipcode Phone Number [facility] [place] [address] PATHOLOGY [address] * Total iron binding capacity (12/28/2018 2:50 AM CDT) [facility] Iron level 22 (L) 37 - 145 ug/dL [facility] Iron binding 125 (L) 200 - 400 ug/dL [facility] % Saturation 17.6 15.0 - 38.0 % [facility] Specimen Plasma specimen Performing Organization Address City/[facility] Centercode Phone Number [facility] [place] [address] PATHOLOGY [address] * Venous blood gas (12/28/2018 2:50 AM CDT) Only the most recent of 3 results within the time period is included. [facility] pH, venous 7.38 7.32 - 7.42 [facility] pCO2, venous 31 (L) 45 - 51 mmHg [facility] pO2, venous 40 25 - 40 mmHg [facility] Base excess, -6 (L) -2 - 2 meq/L [facility] O2 saturation, 69 40 - 70 % [facility] Bicarbonate, 18.3 (L) 21.0 - 28.0 mmol/L [facility] Specimen Blood Performing Organization Address City/[facility] Phone Number [facility] [place] [address] PATHOLOGY AND [facility] MEDICINE [address] * Folate RBC (group test) (12/28/2018 2:50 AM CDT) [facility] RBC folate 1,855 (H) 499 - 1,504 ng/mL [facility] Specimen Blood Performing Organization Address City/[facility]/Zipcode Phone Number [facility] [place] [address] PATHOLOGY AND [facility] MEDICINE [address] * Folate level (12/28/2018 2:50 AM CDT) Folate 18.3 4.8 - 24.2 ng/mL [facility] Specimen Serum Performing Organization Address City/State/Zipcode Phone Number [facility] DEPARTMENT OF [address] [place] [phone] PATHOLOGY AND GENOMIC MEDICINE [place] [facility] [address] [place] [address] * Vitamin B12 level (12/28/2018 2:50 AM CDT) Vitamin B12 757 211 - 946 pg/mL [place] Comment: [facility] Significant overlap exists HOSPITAL between normal and deficiency states. However, most patients with deficiencies will have Serum B12 <200 pg/mL. Specimen Serum Performing Organization Address [facility]/Zipcode Phone Number [facility] DEPARTMENT OF [address] [place] [address] PATHOLOGY AND GENOMIC MEDICINE [place] CAODAISM[address] * CT Soft Tissue Neck W [...] above centered in the left submandibular and electric motor rebuilder spaces, favored to represent the sequela of acute sialoadenitis. A drainable collection is not identified. No convincing sialolith, although there is mild prominence of the left mandibular duct. Malignancy is not excluded in the appropriate clinical setting. [facility]-[id number] Procedure Note Hm Interface, Radiology Results Incoming [...] above centered in the left submandibular and electric motor rebuilder spaces, favored to represent the sequela of acute sialoadenitis. A drainable collection is not identified. No convincing sialolith, although there is mild prominence of the left mandibular duct. Malignancy is not excluded in the appropriate clinical setting. [facility]-[id number] Performing Organization Address City/State/Zipcode Phone Number [facility] [address] [place] [address] * CT Maxillofacial W Contrast (12/27/2018 5:55 [...] above centered in the left submandibular and electric motor rebuilder spaces, favored to represent the sequela of acute sialoadenitis. A drainable collection is not identified. No convincing sialolith, although there is mild prominence of the left submandibular duct. Malignancy is not excluded in the appropriate clinical setting. [facility]-[id number] Procedure Note Interface, Radiology Results Incoming - [...] above centered in the left submandibular and electric motor rebuilder spaces, favored to represent the sequela of acute sialoadenitis. A drainable collection is not identified. No convincing sialolith, although there is mild prominence of the left submandibular duct. Malignancy is not excluded in the appropriate clinical setting. [facility]-[id number] Performing Organization Address City/State/Zipcode Phone Number [facility] [address] [place] [id number] * Respiratory pathogen panel (12/27/2018 12:31 PM CDT) Only the most recent of 2 results within the time period is included. Pathologist [facility] Respiratory Negative for all pathogens [place] pathogen panel tested: [facility] Negative for Adenovirus [facility] Negative for Coronavirus HKU1 Negative for [...] specified Performing Organization Address City/State/Zipcode Phone Number [facility] DEPARTMENT OF [address] [place] [address] PATHOLOGY AND GENOMIC MEDICINE [place] [facility] [address] [place] [address] HOSPITAL * Prothrombin time with INR (12/27/2018 9:40 AM CDT) Only the most recent of 2 results within the time period is included. Prothrombin 17.5 (H) 11.5 - 14.5 sec [facility] INR 1.5 [place] Comment: [facility] Normalized HOSPITAL Ratio (INR) is a therapeutic monitoring tool for patients who are stable on oral anticoagulant therapy. An INR of 2.0-3.0 is suggested for deep vein thrombosis/pulmonary embolism. Specimen Blood Performing Organization Address City/State/Zipcode Phone Number [facility] DEPARTMENT OF [address] [place] [address] PATHOLOGY AND GENOMIC MEDICINE [facility] [address] [place] [address] * Comprehensive metabolic panel (12/27/2018 9:40 AM CDT) Only the most recent of 7 results within the time period is included. Pathologist [facility] Sodium 139 135 - 148 mEq/L [facility] Potassium 3.5 3.5 - 5.0 mEq/L [facility] Chloride 107 98 - 112 mEq/L [facility] CO2 19 (L) 24 - 31 mEq/L [facility] Anion gap 13@ANIO 7 - 15 mEq/L [facility] BUN 16 8 - 23 mg/dL [facility] Creatinine 0.84 0.50 - 0.90 mg/dL [facility] Glucose 121 (H) 65 - 99 mg/dL [facility] Calcium 8.7 (L) 8.8 - 10.2 mg/dL [facility] Protein 6.0 (L) 6.3 - 8.3 g/dL [place] Comment: [facility] [place] 4.6-7.0 g/dL 1 week 4.4-7.6 g/dL 7 months-1year 5.1-7.3 g/dL 1-2 years5.6-7 .5 g/dL >3 years6.0-8 .0 g/dL 18-150 6.3-8.3 g/dL Albumin 2.0 (L) 3.5 - 5.0 g/dL [facility] A/G ratio 0.5 (L) 0.7 - 3.8 [facility] Alkaline 74 35 - 104 U/L [place] phosphatase [facility] AST 28 10 - 35 U/L [facility] ALT 13 5 - 50 U/L [facility] Total bilirubin 0.5 0.0 - 1.2 mg/dL [facility] Specimen Plasma specimen Performing Organization Address City/[facility] Centercode Phone Number [facility] [place] [address] PATHOLOGY AND GENOMIC MEDICINE [address] * Gram stain (12/27/2018 9:02 AM CDT) Only the most recent of 3 results within the time period is included. Gram stain No WBC's or organisms seen. [place] result Comment: [facility] Specimen Information [facility] Specimen Source: Urine Specimen Site: Catheterized Specimen Urine - Catheterized Performing Organization Address [facility] Phone Number [facility] [place] [address] PATHOLOGY AND GENOMIC MEDICINE [address] * Urine culture (12/27/2018 9:02 AM CDT) Only the most recent of 3 results within the time period is included. Urine culture No growth after 24 hours [place] isolate Comment: [facility] Specimen Information [facility] Specimen Source: Urine Specimen Site: Catheterized Specimen Urine - Catheterized Performing Organization Address City/[facility]ercode Phone Number [facility] DEPARTMENT OF [address] [place] [address] PATHOLOGY AND GENOMIC MEDICINE [address] * Blood culture, aerobic & anaerobic (12/27/2018 7:45 AM CDT) Only the most recent of 6 results within the time period is included. Blood culture No growth after 5 days of [place] isolate incubation. [facility] Comment: HOSPITAL Specimen Information Specimen Source: Blood Specimen Site: Right Specimen Blood - Right Performing Organization Address City/[facility]ercode Phone Number [facility] DEPARTMENT OF [address] [place] [address] PATHOLOGY AND GENOMIC MEDICINE [address] * Urinalysis screen and microscopy, with reflex to culture (12/27/2018 7:35 AM CDT) Only the most recent of 3 results within the time period is included. Specimen site Catheterized [facility] Color, UA Yellow [facility] Appearance, UA Clear [facility] Specific 1.018 1.001 - 1.035 [place] gravity, [facility] pH, UA 6.0 5.0 - 8.5 [facility] Protein, UA 1+ (A) Negative [facility] Glucose, UA Negative Negative [facility] Ketones, UA Trace (A) Negative [facility] Bilirubin, UA Negative Negative [facility] Blood, UA Small (A) Negative [facility] Nitrite, UA Negative Negative [facility] Urobilinogen, <2.0 <2.0 [facility] Leukocyte Negative Negative [place] [facility] Epithelial <1 /HPF [place] cellsTEX[facility] WBC, UA 21 (H) 0 - 4 /HPF [facility] RBC, UA 2 0 - 5 /HPF [facility] Bacteria, UA None seen None seen [facility] Yeast, UA None seen [facility] Yeast with None seen [place] pseudohyphaeST[facility] Hyaline casts, >20 (A) /LPF [facility] Specimen Urine Performing Organization Address City/[facility] Phone Number [facility] H[place]PITAL [place] [address] PATHOLOGY AND [facility] MEDICINE [address] * Lactic acid level, SEPSIS - Now and repeat 2x every 3 hours (12/27/2018 6:30 AM CDT) Lactic acid 1.3 0.5 - 2.2 mmol/L [facility] Specimen Blood Performing Organization Address City/[facility] Phone Number [facility] [place] [address] PATHOLOGY AND GENOMIC MEDICINE [address] * Thyroid stimulating hormone (12/27/2018 6:30 AM CDT) Only the most recent of 2 results within the time period is included. TSH 1.25 0.27 - 4.20 uIU/mL [facility] Specimen Plasma specimen Performing Organization Address [facility] Phone Number [facility] [place] [address] PATHOLOGY AND GENOMIC MEDICINE [address] * Hepatic function panel (12/27/2018 6:30 AM CDT) Only the most recent of 2 results within the time period is included. Albumin 2.1 (L) 3.5 - 5.0 g/dL [facility] Total bilirubin 0.7 0.0 - 1.2 mg/dL [facility] Bilirubin <0.2 0.0 - 0.3 mg/dL [place] direct [facility] Alkaline 75 35 - 104 U/L [place] phosphatase [facility] Protein 6.0 (L) 6.3 - 8.3 g/dL [place] Comment: [facility] [place] 4.6-7.0 g/dL 1 week 4.4-7.6 g/dL 7 months-1year 5.1-7.3 g/dL 1-2 years5.6-7 .5 g/dL >3 years6.0-8 .0 g/dL 18-150 6.3-8.3 g/dL ALT 11 5 - 50 U/L [facility] AST 34 10 - 35 U/L [facility] Specimen Plasma specimen Performing Organization Address City/[facility] Phone Number [facility] DEPARTMENT OF [address] [place] [address] PATHOLOGY AND [facility] MEDICINE [address] * Arterial blood gas (12/27/2018 6:14 AM CDT) Pathologist [facility] pH, arterial 7.45 7.35 - 7.45 [facility] pCO2, arterial 29 (L) 35 - 45 mmHg [facility] pO2, arterial 87 80 - 90 mmHg [facility] Bicarbonate, 19.6 (L) 21.0 - 28.0 mmol/L [facility] Base excess, -3 (L) -2 - 2 mEq/L [facility] O2 saturation, 98 95 - 100 % [facility] Specimen Blood Performing Organization Address City/[facility] Phone Number [facility] [place] [address] PATHOLOGY AND [facility] MEDICINE [address] * Echocardiogram complete w contrast and 3D if needed (12/24/2018 11:25 AM CDT) Specimen Narrative Performed At [facility] Echocardiography Report [id number] [facility] [address], [place] [address] Pat.Name:BRIDGET ISAAC [facility].ID:[id number] .Date: 12/24/2018 Refer.MD:MIKE SHELTON MD Exam Time: 10:53:00 AM Study Type:Routine Echo Height:61inWeight:114lb BSA: 1.49 m2 DOBAge:1930,88Y Sex: FEMALEBP:145/63 HR:70 bpmSonogrphr: GALEN Duarte Pat. Stat.:Inpatient Room:[facility] Study Status:Final Echo Event ID:[id number] Order ID:[id number] Reason for Study:General weakness, Elevated BNP History [...] RAPof 5 mmHg. MEASUREMENTS: 2D Parasternal Long [place] LVOT 1.7 cmLA Ds4.1 cm LVIDd4.9 cmIndex3.3 cm/m Ao Rtd 2.7 cm Index1.8 cm/m LVIDs3.4 cmLV Lgwb594.2 g(87-129) LV%fs 30.6 % LVM Index 88.1 g/m2 IVSd 0.8 cmRWT0.3 LVPWd0.8 cm LA Sng Plane LA Area 23.2 cm2(8.8-23.4) LA Vol68.1 ml Index45.7 ml/m LA LngAx 6.6 cm RA Sng Plane RA Area 12.5 cm2(8.3-19.5) RA Vol24.6 ml Index16.5 ml/m RA LngAx 5.3 cm DOPPLER LVOT For Flow LVOT Area2.3 cm2 LVOT SV 49.2 ml MIRZeyEpd152.1 cm/sHR74.4 bpm LVOTpkPG 4.9 mmHgLVOT CO3.7 l/min LVOTmnPG 2.5 mmHgLVOT CI2.5 l/m/m2 LVOT TVI21.7 cm Signed 12/24/2018 05:04 PM Shady Torres M.D. Procedure Note Interface, Radiology Results In - 12/24/2018 5:05 PM CDT Echocardiography Report [id number] [address] [facility].Name: BRIDGET ISAAC Franca.ID: [id number] .Date: 12/24/2018 Refer.MD: MIKE SHELTON MD Exam Time: 10:53:00 AM Study Type:Routine Echo Height: 61in Weight: 114lb BSA: 1.49 m2 Age: 6 1930,88Y Sex: FEMALE BP: 145/63 HR: 70 bpm Sonogrphr: GALEN Duarte Pat. Stat.:[place] [facility] Study Status:Final Echo Event ID:[id number] Order ID: [id number] Reason for Study:General weakness, Elevated BNP History [...] of 5 mmHg. MEASUREMENTS: 2D Parasternal Long [place] LVOT 1.7 cm LA Ds 4.1 cm [...] PM Shady Torres M.D. Performing Organization Address [facility]/Zipcode Phone Number [facility] [address] [place] [address] * AST (SGOT) (12/24/2018 1:32 AM CDT) AST 15 10 - 35 U/L [facility] Specimen Plasma specimen Narrative Performed At results called to and read back by JULIO VELÁSQUEZ/LEELA [facility] DEPARTMENT OF at12/24/201802:29by KXG. PATHOLOGY AND GENOMIC MEDICINE Performing Organization Address [facility]/Zipcode Phone Number [facility] DEPARTMENT OF [address] [place] [address] PATHOLOGY AND GENOMIC MEDICINE [address] * ECG ED Preliminary Interpretation - Not an Order (12/24/2018 12:56 AM CDT) Narrative Performed At Bob Bernardo DO 12/24/20187:50 PM ECG ED Preliminary Interpretation - Not an Order Performed by: Bob Bernardo DO Authorized by: Bob Bernardo DO ECG reviewed by ED Physician in the absence of a healthcare customer service: yes Interpretation: Interpretation: abnormal Rate: ECG rate:76 [...] acute osseous abnormality of the right forearm. [facility]-[id number] Procedure Note Interface, Radiology Results Incoming - [...] acute osseous abnormality of the right forearm. [facility]-[id number] Performing Organization Address City/[facility]/Zipcode Phone Number [facility] [address] [place] [address] * Creatine kinase, total (CPK) (11/18/2018 8:04 PM CDT) Creatine kinase 38 26 - 192 U/L [facility] Specimen Plasma specimen Performing Organization Address City/[facility]/Zipcode Phone Number [facility] DEPARTMENT OF [address] [place] [address] PATHOLOGY AND GENOMIC MEDICINE [address] [address] [facility] * MRI Brain Wo Contrast (10/23/2018 [...] regional hypoperfusion to suggest specific neurodegenerative disease. [id number] Dictated and approved by certified residential medication aide/fellow: Whit Villar M.D. I, Alfredo Cheek MD, [...] regional hypoperfusion to suggest specific neurodegenerative disease. [id number] Dictated and approved by certified residential medication aide/fellow: Whit Villar M.D. I, Alfredo Cheek MD, personally reviewed the images and resident's/fellow's findings and agree with the final report. Performing Organization Address City/State/Zipcode Phone Number [facility] [address] [place] [address] * XR Thoracic Spine 3 Vw (06/18/2018 12:14 PM PRISON TEACHER) Only the most recent of 2 results [...] mineral density does not appear significantly changed. [facility]-[id number] Procedure Note Hm Interface, Radiology Results Incoming - 06/18/2018 2:56 PM PRISON TEACHER EXAMINATION: XR THORACIC SPINE 3 VW CLINICAL [...] mineral density does not appear significantly changed. [facility]-[id number] Performing Organization Address City/State/Zipcode Phone Number [facility] [address] [place] [address] * MRI Lumbar Spine Wo Contrast (03/27/2018 10:18 AM PRISON TEACHER) Specimen Narrative Performed At [facility] EXAMINATION: MRI [...] height is grossly maintained, attention on follow-up. [id number] Procedure Note Hm Interface, Radiology Results Incoming - 03/27/2018 10:56 AM PRISON TEACHER EXAMINATION: MRI LUMBAR SPINE WO CONTRAST CLINICAL [...] height is grossly maintained, attention on follow-up. [id number] Performing Organization Address City/State/Zipcode Phone Number [facility] [address] [place] [address] * CT Pelvis Wo Contrast (03/27/2018 2:59 AM PRISON TEACHER) Specimen Narrative Performed At EXAMINATION:CT PELVIS WO [...] diverticulosis. See also concurrent CT lumbar spine. [facility]-[id number] Procedure Note Interface, Radiology Results Incoming - 03/27/2018 3:07 AM PRISON TEACHER EXAMINATION: CT PELVIS WO CONTRAST CLINICAL HISTORY: [...] diverticulosis. See also concurrent CT lumbar spine. [facility]-[id number] Performing Organization Address City/State/Zipcode Phone Number [facility] [address] [place] [address] * CT Lumbar Spine Wo Contrast (03/27/2018 2:58 AM PRISON TEACHER) Specimen Narrative Performed At EXAMINATION: CT LUMBAR [...] narrowing of spinal canal at L2-L3 and yxgz-nn-xqljlzou narrowing of spinal canal at L3-L4. Moderate [...] of superior endplate of T12 is identified. Oqfs-av-spqzekjp degenerative change of the lumbar spine. Areas of spinal canal and neural foraminal stenosis are seen as detailed above. Punctate nonobstructive calculus of the left renal collecting system. [facility]-[id number] Procedure Note Interface, Radiology Results Incoming - 03/27/2018 3:13 AM PRISON TEACHER EXAMINATION: CT LUMBAR SPINE WO CONTRAST CLINICAL [...] narrowing of spinal canal at L2-L3 and xgsy-fw-kbfxdaky narrowing of spinal canal at L3-L4. Moderate [...] of superior endplate of T12 is identified. Fwca-sv-aokgqejb degenerative change of the lumbar spine. Areas of spinal canal and neural foraminal stenosis are seen as detailed above. Punctate nonobstructive calculus of the left renal collecting system. [facility]-[id number] Performing Organization Address City/State/Zipcode Phone Number [facility] [address] [place] [address] after 01/21/2018 Insurance Type Payer Benefit Subscriber ID Effective Phone Address Plan / Dates Group Medicare MEDICARE MEDICARE xxxxxxxxxxx 1997-P [place], PART A AND resent [place] B Commercial AAR AAR xxxxxxxxxxx 2007-P SUPPLEMENT resent Advance Directives For more information, please contact: [phone] Patient Manager Data Warehouse Explanation Type Date Recorded Advance Directives, 07/14/2018 7:36 PM Living Will and Medical Power of Security Ambassador POA Advance Directives, 01/05/2019 4:47 AM Living Will and Medical Power of Security Ambassador
[2019-01-22 18:52] LABS: CREATINE KINASE MB 1.3 ng/mL (0-5.0)
[2019-01-22 18:54] LABS: B-TYPE NATRIURETIC PEPTIDE2 770.7 pg/mL (0-100)
--- NOTE | 2019-01-22 19:01 | NUR ---
ABG RESULTS GIVEN TO DR MARGI PARKER
[2019-01-22 19:04] LABS: ABG HCO3 20 mmol/L (23-28); ABG PCO2 27 mmHg (41-51); ABG PH 7.48 (7.31-7.41); ABG PO2 126 mmHg (80-105)
[2019-01-22] MEDS: CEFEPIME 1GM/NS 0.9% 50 ML 50 ML IV SCH (19:07)
--- NOTE | 2019-01-22 19:08 | NUR ---
PLACED PT ON PUREWICK EXTERNAL CATHETER, EXPLAINED PURPOSE OF PROCEDURE, PT TOLERATING WELL AT THIS TIME.
--- NOTE | 2019-01-22 19:40 | NUR ---
ATTEMPTED TO REMOVE BIPAP AND PLACE PT ON 2L N/C, UNABLE TO TOLERATE AT THIS TIME, SPO2 DROPPING TO 88% WITH GOOD WAVE FORM, PT PLACED BACK ON BIPAP AT THIS TIME.
--- NOTE | 2019-01-22 19:45 | NUR ---
PT NOTED TO HAVING SOME ANTSY EPISODES, DENIES ANY C/O, WILL CONTINUE TO MONITOR.
--- NOTE | 2019-01-22 20:03 | NUR ---
PT HAVING RUN'S OF V-TACH IN THE 130'S, PT RESTING IN BED, OBTAINING STAT EKG AT BEDSIDE, CALLING HOSPITALIST Chana VARELA AT THIS TIME; DR. PERLA CHEN MD AT BEDSIDE.
[2019-01-22] MEDS ORDERED: AMIODARONE HCL 150MG 100 ML IV SCH (20:15)
[2019-01-22] MEDS ORDERED: AMIODARONE HCL 360MG 200 ML IV SCH (20:15)
[2019-01-22] MEDS ORDERED: AMIODARONE HCL 150MG 100 ML ONE (20:17)
[2019-01-22] MEDS ORDERED: AMIODARONE 900MG 500 ML IV ONE (20:17)
[2019-01-22] MEDS ORDERED: POTASSIUM CHLORIDE 10MEQ EA PO ONE (20:30)
--- NOTE | 2019-01-22 20:30 | NUR ---
DR. CEDILLO AT BEDSIDE SPEAKING WITH DAUGHTER IN REGARDS TO PLAN OF CARE.
[2019-01-22 20:36] LABS: BASOPHILS # (AUTO) 0.1 (0.0-0.1); BASOPHILS % 0.4 % (0.0-1.0); EOSINOPHILS # (AUTO) 0.1 (0.0-0.4); EOSINOPHILS % 0.9 % (0.0-6.0); HEMATOCRIT 27.5 % (34.2-44.1); HEMOGLOBIN 8.7 g/dL (12.0-16.0); LYMPHOCYTES # (AUTO) 0.5 (1.0-3.2); MEAN CORPUSCULAR HEMOGLOBIN 29.5 pg (28-32); MEAN CORPUSCULAR HGB CONC 31.6 g/dL (31-35); MEAN CORPUSCULAR VOLUME 93.2 fL (81-99); MONOCYTES # (AUTO) 0.4 (0.2-0.8); NEUTROPHILS % 89.5 % (38.7-80.0); PLATELET COUNT 392 x10e3/uL (140-360); RED BLOOD COUNT 2.95 x10e6/uL (3.6-5.1); RED CELL DISTRIBUTION WIDTH 14.7 % (11.7-14.4)
--- NOTE | 2019-01-22 20:36 | NUR ---
RECEIVED VERBAL ORDERS FROM DR. CEDILLO TO CANCEL K-DUR PILLS AND AWAIT REDRAW OF CHEMISTRY PANEL FOR FURTHER ORDERS.
[2019-01-22 20:49] LABS: ALBUMIN 2.2 g/dL (3.5-5.0); ALBUMIN/GLOBULIN RATIO 0.6 (0.8-2.0); ANION GAP 15.2 mmol/L (8-16); CALCIUM 8.8 mg/dL (8.4-10.2); CREATININE, SERUM 1.15 mg/dL (0.57-1.11); PHOSPHORUS 3.8 MG/DL (2.3-4.7); POTASSIUM 3.2 mmol/L (3.5-5.1)
[2019-01-22] MEDS ORDERED: AMIODARONE 900MG 500 ML IV SCH (21:00)
[2019-01-22] MEDS ORDERED: POTASSIUM CHLORIDE 20MEQ/100ML 100 ML IV STA (21:02)
--- NOTE | 2019-01-22 22:00 | NUR ---
Report received from MATT Chatman. patient admitted in unit @2200 by stretcher. Patient was lethargic/weak continued on BIPAP,Spo2 maintained 98%. Respiration even in unlabored. Head to toe assessment completed. Blanchable redness on scarum and left lateral site of foot noted. Bed in lower position,locked. Will continue to monitor.
--- NOTE | 2019-01-22 22:14 | NUR ---
Patient assisted to bath with CHG wipe. Assisted to cleaned and changed diaper with help of MATT Wilson at this time. Will continue to monitor.
--- NOTE | 2019-01-22 22:17 | History and Physical ---
CHIEF COMPLAINT: Worsening shortness of breath. HISTORY OF PRESENT ILLNESS: This is an 88-year-old white woman, who was transferred from a local correction, [facility] to [facility] because of worsening shortness of breath and altered mentation. The family states that she has been experiencing shortness of breath past few days as well as productive cough. In the emergency room, the patient underwent a chest x-ray, which revealed diffuse bilateral pulmonary opacities. The patient also was found to have white blood cell count of 11,100 with 89% segmented neutrophils. The patient's BUN and creatinine in the emergency room were at 19 and 1.07 respectively. The patient's potassium was 3.3. The patient's B-type natriuretic peptide level was 770. The patient's initial troponin I was normal at 0.032. In the emergency room, the family stated the patient was a do not resuscitate code status and this was corroborated by the attending emergency room physician, namely Dr. Rg Tubbs. In the emergency room, the patient was also found to be in atrial fibrillation. REVIEW OF SYSTEMS: GENERAL: She has lost approximately 25 pounds in the last 3 months according to family members. No fever or chills. She has had more confusion in the last few days according to family members, but she does have underlying dementia. HEENT: No headaches. No vision changes. CARDIOVASCULAR: Positive for worsening shortness of breath and cough for the past week according to adult daughter. No chest pain. No palpitations. GI: No nausea, vomiting, diarrhea, or constipation. : No UTIs. NEUROMUSCULAR: She has become bedbound lately according to family members. Denies any focal limb weakness or numbness. PAST SURGICAL HISTORY: None. PAST MEDICAL HISTORY: 1. Moderate dementia. 2. Chronic diastolic congestive heart failure. 3. Parkinson disease. 4. Dyslipidemia. 5. Stage 3 chronic kidney disease. 6. GERD. SOCIAL HISTORY: This woman is and she lives at home with her . Currently, she is staying at a care home facility, namely the [facility]. No history of tobacco or alcohol use. She has adult daughter, who is very much involved in her healthcare needs. ALLERGIES: NO KNOWN DRUG ALLERGIES. MEDICATIONS: 1. Aspirin 81 mg daily. 2. Beta-carotene one tab daily. 3. Vitamin D3 2000 units daily. 4. Nexium 20 mg daily. 5. Furosemide 40 mg daily. 6. Glucosamine/chondroitin one tablet daily. 7. Squire 10/325 one pill daily as needed for pain. 8. Lutein 20 mg daily. 9. Josephine-3 fish oil 500 mg daily. 10. Potassium chloride 10 mEq daily. 11. Simvastatin 10 mg at bedtime. PHYSICAL EXAMINATION: GENERAL: She has worn a BiPAP mask. She is somnolent, but arousable. She appears to be in respiratory distress. She is not oriented to self, time, or place. Her adult daughter and son-in-law are at bedside. VITAL SIGNS: Blood pressure is 116/60, pulse is 118, oxygen saturation currently is 100% on a BiPAP machine. Height is 5 feet 1 inch and weight 115 pounds. On arrival to the emergency room, the patient's oxygen saturation is 89% on room air and she was breathing 30 breaths a minute. Temperature 99.2 taken rectally. INTEGUMENT: Skin is warm and dry. Slight pallor. No jaundice or diaphoresis. HEENT: Anicteric sclerae. Dry mucous membranes. NECK: Supple. No evidence of jugular venous distention. CARDIOVASCULAR: Distant heart sounds. Tachycardic rate, regular rhythm. The patient has S3 gallop. LUNGS: The patient has faint crackles bilaterally. ABDOMEN: Benign. Extremities: No edema or deformity. NEUROLOGIC: Intact. DIAGNOSES: 1. Acute on chronic diastolic congestive heart failure. 2. Acute respiratory failure. 3. Bilateral pneumonia, likely gram-negative ninfa. 4. Atrial fibrillation. 5. Moderate dementia. PLAN: 1. We will honor the patient's do not resuscitate code status as confirmed by family members. 2. Intravenous furosemide. 3. Intravenous antibiotics. 4. Follow blood cultures. I spent 75 minutes in the care of this intensive care unit patient. MD DAISHA Sanchez/PANFILO /[id number] MTDD
[2019-01-22 22:29] VITALS: BP 107/47
[2019-01-22 22:35] VITALS: BP 107/47
[2019-01-23] VITALS (9 sets, daily range): BP systolic 95–129; BP diastolic 46–67
[2019-01-23] MEDS ORDERED: AMIODARONE HCL 360MG 200 ML IV SCH
[2019-01-23] MEDS ORDERED: ATIVAN1 MG (00:27)
[2019-01-23] MEDS ORDERED: NEURONTIN400 MG (00:30)
[2019-01-23] MEDS ORDERED: MIRALAX17 GM (00:31)
[2019-01-23] MEDS ORDERED: PACERONE200 MG (00:33)
[2019-01-23] MEDS ORDERED: METOPROLOL TART25 MG PO (00:38)
[2019-01-23] MEDS: MORPHINE SULFATE 2 MG/ML SYR 1ML IV PRN ×4 (01:22→17:49)
[2019-01-23] MEDS: AMIODARONE 900MG 500 ML IV SCH (03:01)
[2019-01-23 05:29] LABS: BASOPHILS % 0.2 % (0.0-1.0); HEMATOCRIT 25.6 % (34.2-44.1); HEMOGLOBIN 8.1 g/dL (12.0-16.0); LYMPHOCYTES # (AUTO) 0.4 (1.0-3.2); LYMPHOCYTES % 6.4 % (18.0-39.1); MEAN CORPUSCULAR HEMOGLOBIN 29.5 pg (28-32); MEAN CORPUSCULAR HGB CONC 31.6 g/dL (31-35); MEAN CORPUSCULAR VOLUME 93.1 fL (81-99); MONOCYTES # (AUTO) 0.2 (0.2-0.8); NEUTROPHILS # (AUTO) 5.7 (2.1-6.9); NEUTROPHILS % 89.5 % (38.7-80.0); PLATELET COUNT 356 x10e3/uL (140-360); RED BLOOD COUNT 2.75 x10e6/uL (3.6-5.1); RED CELL DISTRIBUTION WIDTH 14.9 % (11.7-14.4)
[2019-01-23 05:50] LABS: ALBUMIN/GLOBULIN RATIO 0.5 (0.8-2.0); ANION GAP 14.8 mmol/L (8-16); CALCIUM 8.8 mg/dL (8.4-10.2); CREATININE, SERUM 1.12 mg/dL (0.57-1.11); POTASSIUM 3.8 mmol/L (3.5-5.1)
[2019-01-23] MEDS: VANCOMYCIN 1GM/NS 250 ML 250 ML IV SCH (06:57)
--- NOTE | 2019-01-23 07:36 | Diagnostic Imaging Report ---
EXAMINATION: CHEST SINGLE (PORTABLE) INDICATION: ^CHF and pneumonia ^[id number] ^0652 ^Y COMPARISON: 01/22/2019 FINDINGS: AP view TUBES and LINES: None. LUNGS: Lungs are well inflated. Bilateral airspace opacities, decreased when compared to prior exam. PLEURA: No pneumothorax. Suspected trace bilateral pleural effusions. HEART AND MEDIASTINUM: The cardiomediastinal silhouette is unremarkable. BONES AND SOFT TISSUES: No acute osseous lesion. Soft tissues are unremarkable. UPPER ABDOMEN: No free air under the diaphragm. IMPRESSION: Bilateral airspace opacities, decreased when compared to prior exam, representing improved edema and/or pneumonia. Suspected trace bilateral pleural effusions. Signed by: Dr. Heriberto Oliva MD on 01/23/2019 7:33 AM
[2019-01-23] MEDS: FUROSEMIDE INJ 10 MG/ML 4 ML VIAL IV SCH ×2 (08:48→23:40)
[2019-01-23] MEDS: CEFEPIME 1GM/NS 0.9% 50 ML 50 ML IV SCH ×2 (08:49→20:12)
[2019-01-23] MEDS ORDERED: SODIUM CHLORIDE 0.9% 250ML 250 ML ONE (08:59)
[2019-01-23] MEDS ORDERED: FUROSEMIDE INJ 10 MG/ML 4 ML VIAL IV SCH (09:00)
--- NOTE | 2019-01-23 17:36 | NUR ---
patient with increasing agitation and restlessness, informed dr doe regarding patients condition and pain medication being un effective, new orders received
[2019-01-23] MEDS: LORAZEPAM INJ 2 MG/ML VIAL IV PRN (17:49)
--- NOTE | 2019-01-23 20:33 | Consultation ---
DATE OF CONSULTATION: 01/23/2019 Cardiology Consult Note REASON FOR CONSULT: Zbnll-la-cuvuidr congestive heart failure exacerbation. HISTORY OF PRESENT ILLNESS: An 88-year-old woman with dementia, chronic diastolic heart failure, and atrial fibrillation, who presents with worsening shortness of breath and productive cough for the past several days and she was transferred for detention for treatment. She was found to have elevated white count and a BNP of 770, in respiratory distress requiring BiPAP. Currently, the patient is on BiPAP. Denies any chest pain, but reports shortness of breath. The patient is a little confused, but alert and awake. REVIEW OF SYSTEMS: Difficult to obtain, as the patient is on BiPAP and difficult to understand. She also has dementia and has difficult time understanding. Per the family, it is per HPI, otherwise negative. PAST MEDICAL HISTORY: 1. Dementia. 2. Chronic diastolic congestive heart failure. 3. Chronic kidney disease. 4. Atrial fibrillation. 5. Hyperlipidemia. 6. Parkinson disease. SOCIAL HISTORY: Does not smoke, drink, or abuse drugs. OUTPATIENT MEDICATIONS: Reviewed per the MAR. ALLERGIES: REVIEWED PER THE MAR. PHYSICAL EXAMINATION: VITAL SIGNS: Temperature afebrile, pulse 68, respiratory rate 20, blood pressure 111/64, and saturating 99% on BiPAP. GENERAL: Elderly female, thin and frail, little confused, but awake and alert. CARDIOVASCULAR: Irregular rate and rhythm. A 2/6 systolic murmur heard across the precordium. No rubs or gallops. LUNGS: Coarse breath sounds bilaterally. ABDOMEN: Soft, nontender, and nondistended. NEURO AND PSYCH: Alert and oriented x1. INPATIENT MEDICATIONS: Reviewed. TELEMETRY DATA: Reviewed. Rate control atrial fibrillation. IMAGING DATA: Reviewed. Chest x-ray shows bilateral pleural effusions and bilateral opacities concerning for multifocal pneumonia versus pulmonary edema. ASSESSMENT AND PLAN: 1. Paroxysmal atrial fibrillation. 2. Yjegt-js-dizssyj diastolic heart failure exacerbation. 3. Hypertension. 4. Pulmonary edema. 5. History of dementia. 6. Healthcare-associated pneumonia. PLAN: Treatment for pneumonia per primary team. Continue IV diuretics. The patient has converted back into normal sinus rhythm. Echocardiogram has been ordered, but results are pending. Do not recommend anticoagulation given her frailty and poor cognitive status already. Thank you for this consult. We will continue to follow. MD RADHA Townsend/PANFILO /[id number]
[2019-01-24] VITALS (7 sets, daily range): BP systolic 87–127; BP diastolic 42–95
[2019-01-24] MEDS: MORPHINE SULFATE 2 MG/ML SYR 1ML IV PRN ×2 (01:20→08:27)
[2019-01-24] MEDS: LORAZEPAM INJ 2 MG/ML VIAL IV PRN ×10 (04:48→22:53)
[2019-01-24 05:33] LABS: BASOPHILS % 0.1 % (0.0-1.0); EOSINOPHILS % 0.2 % (0.0-6.0); HEMATOCRIT 24.8 % (34.2-44.1); HEMOGLOBIN 7.7 g/dL (12.0-16.0); LYMPHOCYTES # (AUTO) 0.7 (1.0-3.2); LYMPHOCYTES % 5.8 % (18.0-39.1); MEAN CORPUSCULAR HEMOGLOBIN 28.8 pg (28-32); MEAN CORPUSCULAR VOLUME 92.9 fL (81-99); MONOCYTES # (AUTO) 0.9 (0.2-0.8); MONOCYTES % 7.1 % (4.4-11.3); NEUTROPHILS # (AUTO) 10.5 (2.1-6.9); PLATELET COUNT 434 x10e3/uL (140-360); RED BLOOD COUNT 2.67 x10e6/uL (3.6-5.1); RED CELL DISTRIBUTION WIDTH 14.9 % (11.7-14.4)
[2019-01-24 05:54] LABS: ANION GAP 14.6 mmol/L (8-16); CREATININE, SERUM 1.38 mg/dL (0.57-1.11); POTASSIUM 3.6 mmol/L (3.5-5.1)
[2019-01-24] MEDS: VANCOMYCIN 1GM/NS 250 ML 250 ML IV SCH (06:01)
[2019-01-24] MEDS: CEFEPIME 1GM/NS 0.9% 50 ML 50 ML IV SCH ×2 (08:27→21:28)
[2019-01-24] MEDS: FUROSEMIDE INJ 10 MG/ML 4 ML VIAL IV SCH ×2 (08:27→21:00)
[2019-01-24] MEDS ORDERED: MORPHINE SULFATE INJ 4 MG/ML INJ 1ML IV PRN (10:30)
--- NOTE | 2019-01-24 10:30 | NUR ---
DR CEDILLO ROUNDED WITH PT AND FAMILY. PLANS TO PLACE PT ON HOSPICE WERE DISCUSSED. ORDERS CURRENTLY PLACED FOR COMFORT CARE. MORPHINE AND ATIVAN TO BE GIVEN Q1H DRE, BIPAP REMOVED, DC TELE. FAMILY AT BEDSIDE AND IN AGREEMENT WITH TREATMENT PLAN.
[2019-01-24] MEDS ORDERED: LORAZEPAM INJ 2 MG/ML VIAL IV ONE (11:00)
--- NOTE | 2019-01-24 11:05 | NUR ---
ASSESSMENT: Spiritual distress Spinne[facility] Person referral by RN. Pt's and daughter at bedside. Pt's requested prayer. Intervention: Provided comforting pastoral presence and prayer. Outcome: Pt's family expressed appreciation for visit. KIERAN ROMERO Spinneret Person Spiritual Care Department O: [phone] Pager: [phone] ([phone] number calling from)
--- NOTE | 2019-01-24 11:23 | Progress Note ---
DATE: 01/24/2019 Cardiology Progress Note SUBJECTIVE: No major events overnight. OBJECTIVE: VITAL SIGNS: Temperature afebrile, pulse 63, respiratory rate 18, blood pressure 124/56, and saturating 98% on nasal cannula. GENERAL: Elderly female, frail, no acute distress. CARDIOVASCULAR: Regular rate and rhythm. A 2/6 systolic murmur heard at the precordium. No rubs or gallops. LUNGS: Coarse breath sounds bilaterally. ABDOMEN: Soft, nontender, and nondistended. NEURO AND PSYCH: Alert and oriented x1. INPATIENT MEDICATIONS: Reviewed. TELEMETRY DATA: Reviewed, shows normal sinus rhythm. ASSESSMENT AND PLAN: 1. Paroxysmal atrial fibrillation, now back in sinus rhythm. 2. Vlifg-yi-tentyoe diastolic heart failure exacerbation. 3. Hypertension. 4. Pulmonary edema. 5. History of dementia. 6. Healthcare-associated pneumonia. PLAN: The patient remains in sinus rhythm, now off amiodarone drip. Continue oral amiodarone once the patient is able to take oral medicine. Continue IV diuretics. We will follow up on echocardiogram results today. The patient is DNR/DNI. We will manage conservatively. Thank you for this consult. We will continue to follow. MD RADHA Townsend/PANFILO /[id number]
[2019-01-24] MEDS ORDERED: MORPHINE SULFATE INJ 4 MG/ML INJ 1ML IV ONE (11:30)
[2019-01-24] MEDS: MORPHINE SULFATE INJ 4 MG/ML INJ 1ML IV PRN ×8 (11:36→22:53)
--- NOTE | 2019-01-24 15:00 | NUR ---
PT HAS BEEN RESTING WELL, NO S/S DISTRESS. BREATHING WITHOUT COMPLICATIONS ON NC. FAMILY AT BEDSIDE.
--- NOTE | 2019-01-24 19:50 | NUR ---
Dictated addendum note: [id number]
--- NOTE | 2019-01-24 22:37 | Progress Note ---
DATE: 01/24/2019 This is an 88-year-old white woman, whom I saw with primary treating diagnoses of acute on chronic diastolic congestive heart failure and bilateral pneumonia likely gram-negative ninfa. The comfort measures were initiated earlier today. The patient is receiving every hour intravenous morphine and lorazepam. The patient is currently experiencing agonal breathing with approximate 12 to 14 breaths per minute. She does not appear to be in any obvious distress. Adult daughter and are at bedside. is eminent. MD DAISHA Sanchez/PANFILO /[id number]
[2019-01-25] MEDS: MORPHINE SULFATE INJ 4 MG/ML INJ 1ML IV PRN ×12 (00:23→21:46)
[2019-01-25] MEDS: LORAZEPAM INJ 2 MG/ML VIAL IV PRN ×11 (00:23→18:35)
[2019-01-25 04:14] VITALS: BP 87/42
--- NOTE | 2019-01-25 06:44 | NUR ---
Notified to Dr. Gamboa about critical labs (vancomycin trough:18.5). MD ordered stop all antibiotics and furosemide at this time.
--- NOTE | 2019-01-25 07:14 | NUR ---
Report given to oncoming nurse, walking round done.
[2019-01-25 07:25] VITALS: BP 92/43
--- NOTE | 2019-01-25 09:11 | NUR ---
MD MAMADOU DUONG SEE PT, NO CHANGE IN PT CONDITION Addendum: 01/25/19 at 0912 by Fabi Gunter RN [id number]
[2019-01-25 09:30] VITALS: BP 92/43
--- NOTE | 2019-01-25 09:30 | NUR ---
PT REPOSITIONED FOR COMFORT, 20RR, 67 HR, 96% ON 4L NC, MEDICATED PER MD ORDERS
[2019-01-25 11:30] VITALS: BP 91/45
--- NOTE | 2019-01-25 11:33 | NUR ---
NEW 22G TO RIGHT HAND BY CHARGE NURSE, FAMILY AT SIDE
--- NOTE | 2019-01-25 11:40 | NUR ---
PT REPOSITIONED FOR COMFORT, MEDICATED PER ORDER , FAMILY AT SIDE Addendum: 01/25/19 at 1330 by Fabi Gunter RN HR 75BPM, 16RR, 97%
--- NOTE | 2019-01-25 13:10 | NUR ---
PT MEDICATED PER MD ORDER, REPOSITIONED, HR 36-40BPM, 14 RR, 98%
--- NOTE | 2019-01-25 15:11 | NUR ---
PT MEDICATED PER MD ORDER , PT REPOSITIONED FOR COMFORT, 77HR, 97%, 12RR, NO CHANGE IN CONDITION
--- NOTE | 2019-01-25 17:05 | NUR ---
REPOSITIONED FOR COMFORT, MEDICATED PER MD ORDER, FAMILY AT SIDE, 99%, 14RR, 72BPM
[2019-01-25 19:15] VITALS: BP 89/54
--- NOTE | 2019-01-25 19:15 | NUR ---
patient received lying quietly in bed. bp 89/54 rr 12 hr 110 temp 98.0. 02/4l/nc remains for comfort. patient repositioned to right side. diaper remains dry at this time. pm assessment complete. family remains at the bedside. family instructed to call for assistance when needed.
--- NOTE | 2019-01-25 19:15 | NUR ---
NO CHANGE IN CONDITION, PT REPOSITIONED TO RIGHT SIDE, FAMILY AT SIDE
--- NOTE | 2019-01-25 20:25 | NUR ---
Patient arrived to the floor via stretcher. Patient lethargic with increased respirations. Family at bedside. Pt appear to be in no pain. Teaching done with family on palliative care,medication and patient care.
--- NOTE | 2019-01-25 20:30 | NUR ---
patient transferred to room 292 via bed at this time. Report given to Mary Barraza RN
[2019-01-25 21:44] VITALS: BP 96/46
--- NOTE | 2019-01-25 22:08 | Progress Note ---
DATE: 01/25/2019 Cardiology Progress Note SUBJECTIVE: No major events overnight. OBJECTIVE: VITAL SIGNS: Temperature afebrile, pulse 75, respiratory rate 16, blood pressure 91/45, saturating 97% on nasal cannula. GENERAL: A frail elderly female, in no acute distress. CARDIOVASCULAR: Regular rate and rhythm. No murmurs, rubs, or gallops. A 2/6 systolic murmur, heard throughout the precordium. No rubs or gallops. LUNGS: Coarse breath sounds bilaterally. ABDOMEN: Soft, nontender, nondistended. NEURO AND PSYCH: Alert and oriented to person, place, and time. Normal affect. INPATIENT MEDICATIONS: Reviewed. TELEMETRY DATA: Reviewed, shows normal sinus rhythm. ASSESSMENT AND PLAN: 1. Paroxysmal atrial fibrillation, now back in sinus rhythm. 2. Mzbxi-nr-ezdzomn systolic heart failure exacerbation. 3. Hypertension. 4. Pulmonary edema. 5. History of dementia. 6. Healthcare-associated pneumonia. PLAN: The patient remains in sinus rhythm. Continue oral amiodarone. This patient is essentially on comfort care. We will sign off. Please call back if there is any further question. MD RADHA Townsend/PANFILO /[id number]
[2019-01-26] MEDS: LORAZEPAM INJ 2 MG/ML VIAL IV PRN (02:00)
--- NOTE | 2019-01-26 05:44 | NUR ---
Patient resting quitly at this time.
[2019-01-26 06:27] VITALS: BP 118/52
[2019-01-26 07:45] VITALS: BP 145/67
[2019-01-26 08:00] VITALS: BP 145/67
[2019-01-26 11:41] VITALS: BP 122/57
[2019-01-26 16:10] VITALS: BP 127/62
[2019-01-26] MEDS: ACETAMINOPHEN 650 MG SUPP PR PRN (16:10)
--- NOTE | 2019-01-26 17:22 | Progress Note ---
DATE: Internal Medicine Progress Note SUBJECTIVE: The patient is on a comfort care with a diagnosis of pneumonia and acute systolic and diastolic congestive heart failure. The patient is unresponsive. She is unable to communicate. PHYSICAL EXAMINATION: VITAL SIGNS: Blood pressure 132/57, temperature 99.8, heart rate 82 per minute, respiratory rate 26 per minute, and oxygen saturation 96%. HEART: Regular rhythm. Normal S1, S2 sound. LUNGS: Decreased breath sounds bilaterally. LABORATORY DATA: On the BMP; sodium 142, potassium 3.6, chloride 108, CO2 of 23, BUN 35, creatinine 1.38, and glucose 104. On the CBC; white count 12,200, hemoglobin 7.7, hematocrit 24.8, and platelet count 434,000. AST 22, ALT 26, total bilirubin 0.5, and alkaline phosphatase 89. FINAL IMPRESSION: 1. Pneumonia. 2. Acute systolic and diastolic congestive heart failure. PLAN OF TREATMENT: Continue with morphine 4 mg IV q.1 hours and lorazepam 1 mg q.1 hours, also for comfort care. The patient has a terminal condition. We are going to give also Tylenol 650 mg suppositories q.4 hours as needed for fever. The case has been discussed with the family at the bedside, very poor prognosis. MD ALMAS Gonzalez/PANFILO /[id number]
[2019-01-26] MEDS: MORPHINE SULFATE INJ 4 MG/ML INJ 1ML IV PRN (17:39)
--- NOTE | 2019-01-26 19:00 | NUR ---
Received change of shift report from AM nurse. Walking rounds completed.
[2019-01-26 20:00] VITALS: BP 126/54
[2019-01-27] VITALS (7 sets, daily range): BP systolic 115–158; BP diastolic 63–73
--- NOTE | 2019-01-27 16:11 | Progress Note ---
DATE: Internal Medicine Progress Note SUBJECTIVE: The patient is on comfort care. PHYSICAL EXAMINATION: VITAL SIGNS: Blood pressure 147/66, temperature 97.2, heart rate 103 per minute, respiratory rate is 40 per minute, oxygen saturation 95%. HEART: Showed regular rhythm. Normal S1, S2 sound. LUNGS: Clear bilaterally. LABORATORY DATA: On the BMP; sodium 142, potassium 3.6, chloride 108, CO2 23, BUN 35, creatinine 1.38, glucose 104. On the CBC; white count 12,200, hemoglobin 7.7, hematocrit 24.8, platelet count 434,000. AST 22, ALT 26, total bilirubin 0.5, alkaline phosphatase 89. FINAL IMPRESSION: 1. Pneumonia. 2. Acute on chronic systolic and diastolic congestive heart failure. PLAN OF TREATMENT: Continue comfort care as per family wishes. Prognosis is very poor of course. MD ALMAS Gonzalez/PANFILO /[id number]
--- NOTE | 2019-01-27 16:15 | NUR ---
Received a call from Dr. Gamboa at this time and received orders to schedule Morphine 2mg IVP q2 hours scheduled.
--- NOTE | 2019-01-27 16:15 | NUR ---
Visit made by the Spiritual Care Department Pastoral Visitor, Brannon David. PV provided pastoral presence, prayer, hospitality, and supportive listening. Pastoral Visitor informed pt/family of the scope of Entry Level Manager Services and availability. KIERAN ROMERO [employer] Spiritual Care Department O: [phone] Pager: [phone] ([phone] calling from)
[2019-01-27] MEDS: MORPHINE SULFATE 2 MG/ML SYR 1ML IV SCH ×4 (16:30→22:00)
--- NOTE | 2019-01-27 19:34 | NUR ---
Received changes of shift report from AM nurse. Walking rounds completed.
[2019-01-28] VITALS (9 sets, daily range): BP systolic 103–153; BP diastolic 47–73
[2019-01-28] MEDS: MORPHINE SULFATE 2 MG/ML SYR 1ML IV SCH ×12 (02:00→22:26)
[2019-01-28] MEDS: ACETAMINOPHEN 650 MG SUPP PR PRN (05:14)
--- NOTE | 2019-01-28 07:15 | NUR ---
PATIENT IN BED RESTING WITH HEAD OF BED ELEVATED. O2 VIA N/C, HEEL PROTECTOR IN PLACE. REPOSITIONED FOR COMFORT. BED IN LOWER POSITION AND LOCKED. CALL LIGHT AT REACH.
--- NOTE | 2019-01-28 08:52 | NUR ---
Dictated DC summary: [id number]
--- NOTE | 2019-01-28 09:25 | Discharge Summary ---
ADMIT DIAGNOSES: 1. Acute on chronic diastolic congestive heart failure. 2. Acute respiratory failure. 3. Bilateral pneumonia likely gram-negative ninfa. 4. Atrial fibrillation. 5. Moderate dementia. 6. Parkinson disease. DISCHARGE DIAGNOSES: 1. Acute on chronic systolic/diastolic congestive heart failure. 2. Bilateral pneumonia likely gram-negative ninfa. 3. Acute respiratory failure. 4. Atrial fibrillation. 5. Moderate dementia. 6. Parkinson disease. HOSPITAL COURSE: This 88-year-old white woman was initially admitted to [facility] with diagnosis of acute respiratory failure secondary to acute on chronic diastolic congestive heart failure and bilateral pneumonia. During this hospitalization, echocardiogram confirmed findings consistent with systolic/diastolic heart failure. The patient was seen by her sandblaster stone during this hospitalization namely Dr. Neo Benitez. During this hospital stay, the patient was made a do not resuscitate code status by her adult daughter namely Neha Arizmendi, who is the medical power of attorney at law. The patient was started on intravenous antibiotics for her bilateral gram-negative ninfa pneumonia as well as intravenous furosemide for acute congestive heart failure. The patient was also placed on a BiPAP machine because of her acute respiratory failure. During this hospital stay, the family decided to proceed with comfort measures only. Also, during this hospitalization, the family decided to proceed with home hospice care. The patient's condition on discharge was stable with an extremely poor prognosis. DISCHARGE MEDICATIONS: 1. Morphine sulfate 10 mg by mouth every hour as needed for obvious dyspnea or discomfort. 2. Lorazepam 2 mg by mouth every hour for obvious agitation. 3. Supplemental oxygen. The patient will be discharged home on January 29, 2019 under hospice care. Her discharge was delayed one day to help facilitate hospice enrollment. MD DAISHA Sanchez/PANFILO /[id number]
--- NOTE | 2019-01-28 11:28 | NUR ---
PATIENT ASSISTED WITH DIAPER CHANGE, REPOSITIONED IN BED. ORDER FOR HOSPICE EVALUATION. PAIN MANAGEMENT IN PROGRESS, MOUTH CARE PROVIDED. BED IN LOWER POSITION, CALL LIGHT AT REACH.
--- NOTE | 2019-01-28 11:43 | NUR ---
HOSPICE ORDER RECEIVED. MET W THE DTR, LAURA AND SPOUSE. STATES THEY WANTED [facility]. CHOICE LETTER WAS SIGNED BY SPOUSE. COPY TO PT AND COPY TO CHART. CALL TO [facility] @OFF: [phone]. NELSON Juarez / [facility] NOTIFIED. STATES SHE WILL MEET W THE FAMILY @ [address].
--- NOTE | 2019-01-28 16:45 | NUR ---
No appropriate for nutrition intervention as pt has transitioned to hospice status. Diet per MD. Consult as needed. Dietitian sign off.
--- NOTE | 2019-01-28 17:44 | NUR ---
PATIENT REPOSITIONED FOR COMFORT. PAIN MANAGEMENT IN PROGRESS. HOSPICE STAFF IN TO SEE PATIENT. IN BED WITH CALL LIGHT AT REACH.
[2019-01-29] MEDS: MORPHINE SULFATE 2 MG/ML SYR 1ML IV SCH ×5 (00:44→09:00)
[2019-01-29 04:00] VITALS: BP 76/41
--- NOTE | 2019-01-29 07:18 | NUR ---
BEDSIDE SHIFT REPORT RECEIVED FROM THE LOAN INTERVIEWER RN. AAOX0, PATIENT IS IN PALLIATIVE CARE. RESPIRATIONS ARE SHALLOW AND LABORED. WAITING FOR HOSPICE PER THE ORDER. O2 VIA N/C, HEEL PROTECTOR IN PLACE. REPOSITIONED FOR COMFORT. BED IN LOWEST POSITION AND LOCKED. CALL LIGHT AT REACH.
[2019-01-29 08:00] VITALS: BP 60/29
--- NOTE | 2019-01-29 08:00 | NUR ---
WALKING ROUNDS MADE. NO CHANGE IN PT CONDITION.
--- NOTE | 2019-01-29 08:30 | NUR ---
DR. CEDILLO AT BEDSIDE. INFORMED PT VITAL SIGNS TO THE DRKevin TEMP 99.7 BP 60/29. HR 71 O2 SAT 96 %. .
--- NOTE | 2019-01-29 08:45 | NUR ---
CALL RECEIVED FROM [employer]. WILL PICK PT BY [phone].
[2019-01-29 08:54] VITALS: BP 60/29
--- NOTE | 2019-01-29 09:18 | NUR ---
CALL RECEIVED FROM [facility] OF 930AM P/U. ATTEMPTED TO SIGN IMM, BUT NO FAMILY WAS PRESENT. PT IS UNABLE TO SIGN.
--- NOTE | 2019-01-29 10:10 | NUR ---
PT DISCHARGED HOME SAFELY VIA EMS.PT IS ON 4L NC AND ON HOSPICE CARE. IV REMOVED. TIP INTACT. DRESSING APPLIED. DENIED FURTHER NEEDS. INFORMED MD.
== END 2019-01-29 10:16 | disposition hospice, home (50) | DRG 177 ==
LOC: ER 17:43 → ERHOLD 18:40 → IMCU 21:55 → MED/SURG3 01-25 20:25
PROVIDERS: ADMIT Internal Medicine; ATTEND Internal Medicine
DX: J15.6 Pneumonia due to other Gram-negative bacteria (principal); J96.00 Acute respiratory failure, unspecified whether with hypoxia or hypercapnia; I50.43 Acute on chronic combined systolic (congestive) and diastolic (congestive) heart failure; N17.9 Acute kidney failure, unspecified; I11.0 Hypertensive heart disease with heart failure; I48.91 Unspecified atrial fibrillation; Z79.01 Long term (current) use of anticoagulants; E11.9 Type 2 diabetes mellitus without complications; F03.90 Unspecified dementia, unspecified severity, without behavioral disturbance, psychotic disturbance, mood disturbance, and anxiety; Z66 Do not resuscitate
CPT/HCPCS: 36415; 36600; 71045; 80048; 80053; 80202; 82550; 82553; 82805; 83605; 83690; 83735; 83880; 84100; 84484; 85025; 87040; 93005; 93306; 94645; 94660; 99285; J0692; J1940; J2060; J2270; J2930; J3370; J3480; J7050